=== PATIENT | female | born 1945 | race Caucasian/White ===

== ENCOUNTER 2018-07-03 13:02 | Inpatient (IN) | payer MEDICARE ==
[2018-07-03 13:49] LABS: Bilirubin Negative (Negative); Blood, Urine Negative (Negative); Clarity CLEAR (Clear); Glucose, Urine (Dipstick) 250 mg/dL (Negative); Leukocyte Negative (Negative); Nitrite Negative (Negative); Protein, Urine (Dipstick) Negative (Neg-Trace); Specific Gravity, Urine 1.008 (1.002-1.036); Urobilinogen 0.2 mg/dL (0.2-1.0); pH, Urine 5.5 (5.0-9.0)
--- NOTE | 2018-07-03 13:55 | RAD ---
CHEST 1 VIEW: Date: 07/03/18 HISTORY: Chest pain, palpitations, weakness. COMPARISON: Radiograph 2 days prior. FINDINGS: Lungs are clear. No pneumothorax or effusion. Cardiac silhouette and mediastinal contours within norm al limits. Surgical clips project over the left hemithorax. Cardiac device is similar. IMPRESSION: No acute intrathoracic abnormality. POS: [facility]
[2018-07-03] MEDS ORDERED: Digoxin 0.5 MG/2 ML AMP ONE ×2 (13:58→14:02)
[2018-07-03 13:59] LABS: #Basophils 0.1 thou/uL (0.0-0.2); #Eosinphils 0.5 thou/uL (0.0-0.7); #Lymphocytes 1.9 thou/uL (1.20-3.40); #Monocytes 0.5 thou/uL (0.11-0.59); %Basophils 0.8 % (0.0-1.0); %Eosinophils 6.2 % (0.0-10.0); %Lymphocytes 23.9 % (21.0-51.0); Hemoglobin 13.4 g/dL (12.0-16.0); Mean Corpuscular HGB CONC 35.7 g/dL (32.0-36.0); Mean Corpuscular Hemoglobin 35.1 pg (27.0-31.0); Mean Corpuscular Volume 98.4 fL (78.0-98.0); Mean Platelet Volume 7.2 fL (7.4-10.4); Platelet Count 207 thou/uL (130-400); RBC Distribution Width 15.2 % (11.5-14.5); White Blood Cell (WBC) Count 7.9 thou/uL (4.8-10.8)
[2018-07-03 14:06] LABS: INR-International Normal Ratio 1.3; PTT 31.8 SEC (22.9-36.1); Prothrombin Time 16.2 SEC (12.0-14.7)
[2018-07-03] MEDS ORDERED: Magnesium Sulfate 2 GM, Admixture Fee 1 EACH in Sodium Chloride 0.9% 100 ML IVPB SCH (14:15)
[2018-07-03 14:20] LABS: ALT (SGPT) 22 U/L (8-55); AST (SGOT) 24 U/L (5-34); Albumin 3.8 g/dL (3.4-4.8); Alkaline Phosphatase 83 U/L (40-150); Anion Gap 20 mmol/L (10-20); BUN (Urea Nitrogen) 18 mg/dL (9.8-20.1); Bilirubin, Total 0.4 mg/dL (0.2-1.2); CK (CPK) 77 U/L (29-168); Calc. Creatinine Clearance 0 mL/min (70-130); Calcium 9.2 mg/dL (7.8-10.44); Carbon Dioxide 21 mmol/L (23-31); Chloride 100 mmol/L (98-107); Estimated GFR-MDRD 35; Globulin 3.4 g/dL (2.4-3.5); Glucose 267 mg/dL (83-110); Lipase 62 U/L (8-78); Potassium 3.9 mmol/L (3.5-5.1); Protein, Total 7.2 g/dL (6.0-8.3); Sodium 137 mmol/L (136-145)
[2018-07-03 14:24] LABS: CKMB 1.8 ng/mL (0-6.6); Troponin I Less than 0.010 ng/mL (< 0.028)
[2018-07-03 16:16] VITALS: BMI 38.9
[2018-07-03] MEDS ORDERED: Ondansetron HCl/PF 4 MG/2 ML Vial IVP PRN (16:22)
[2018-07-03] MEDS ORDERED: Ondansetron ODT 4 MG TAB SL PRN (16:22)
--- NOTE | 2018-07-03 17:11 | PDOC.FPRHP ---
- History of Present Illness Chief Complaint: weakness, chest palpitations History of Present Illness: 73 yo F with PMH Afib with RVR who came into ED with complaint of palpitations for the past four days with complaints of fluttering. She was brought to the ED was found to be hypotensive. She was given a bolus of NS, Mg and Digoxin. Vital signs stabled out. Denies chest pain, SOB, CLARK, nausea, vomiting. She has been previously admitted for multiple episodes of Afib with RVR and endorses compliance with medications. 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 On hospital admission from February 2018 she was worked up with stress test that was negative. - Allergies/Adverse Reactions Allergies Allergy/AdvReac Type Severity Reaction Status Date / Time ciprofloxacin [From Cipro] Allergy Verified 06/24/17 00:19 levofloxacin Allergy Verified 06/24/17 00:19 - Home Medications Medication Instructions Recorded Confirmed Type Aspirin [Ecotrin Low Strength] 81 mg PO QPM 06/18/17 06/30/17 History Biotin 5,000 mcg PO QPM 06/18/17 06/30/17 History Cholecalciferol (Vitamin D3) 1,000 unit PO QPM 06/18/17 06/30/17 History [Vitamin D3] Escitalopram Oxalate 40 mg PO DAILY 06/18/17 06/30/17 History Furosemide 40 mg PO BID 06/18/17 06/30/17 History Gabapentin 600 mg PO BID 06/18/17 06/30/17 History Glimepiride [Amaryl] 4 mg PO DAILY 06/18/17 06/30/17 History Hydrochlorothiazide 25 mg PO DAILY 06/18/17 06/30/17 History metFORMIN HCl [Metformin HCl] 500 mg PO BID 06/18/17 06/30/17 History Potassium Chloride [K-Dur] 20 meq PO BID-WM #60 tab 06/20/17 06/30/17 Rx Diltiazem HCl [Cartia XT] 240 mg PO BID #60 cap.er.24h 06/26/17 06/30/17 Rx Metoprolol Succinate [Toprol XL] 50 mg PO DAILY #60 tab 06/26/17 06/30/17 Rx Warfarin Sodium [Coumadin] 2 mg PO SEEPHYS tab 06/26/17 06/30/17 Rx Warfarin Sodium [Coumadin] 4 mg PO MWF tab 06/26/17 06/30/17 Rx Cefdinir [Omnicef] 300 mg PO BID 06/30/17 06/30/17 History - History PMHx: HTN, DM2, Tachybrady sndrome s/p pacemaker, chronic Afib, MDD, benign essential tremor PSHx: BTL, C sections, mastectomy FHx: Social: Denies T/E/D - Review of Systems General: denies: fever/chills, weight/appetite/sleep changes Eyes: denies: eye pain, vision changes ENT: denies: nasal congestion, rhinorrhea Respiratory: denies: cough, congestion, shortness of breath Cardiovascular: reports: palpitation. denies: chest pain, edema Gastrointestinal: denies: nausea, vomiting, diarrhea, constipation, GI bleeding Genitourinary: denies: incontinence, dysuria Skin: denies: rashes, itching Musculoskeletal: denies: tenderness, stiffness Neurological: denies: numbness, syncope - Vital signs BP: [138/66] HR: [83] RR: [16] Tmax: [98.7] Pox: [99]% on [RA] Wt: 102kg - Physical Exam Constitutional: NAD HEENT: normocephalic and atraumatic, EOMI Neck: supple Chest: no-tender to palpation, no lesions -Heart: Irregular rhythm on auscultation Lungs: CTAB, no respiratory distress Abdomen: soft, non-tender, no masses/distention Musculoskeletal: normal structure, normal tone Neurological: CN II-XII intact Skin: no rash/lesions Heme/Lymphatic: no unusual bruising or bleeding Psychiatric: normal mood and affect, good judgment and insight FMR H&P: Results - Labs Result Diagrams: 07/03/18 13:25 07/03/18 13:25 Lab results: WBC 7.9 thou/uL (4.8-10.8) 07/03/18 13:25 Hgb 13.4 g/dL (12.0-16.0) 07/03/18 13:25 Hct 37.4 % (36.0-47.0) 07/03/18 13:25 MCV 98.4 fL (78.0-98.0) H 07/03/18 13:25 Plt Count 207 thou/uL (130-400) 07/03/18 13:25 Neutrophils % 63.0 % (42.0-75.0) 07/03/18 13:25 Sodium 137 mmol/L (136-145) 07/03/18 13:25 Potassium 3.9 mmol/L (3.5-5.1) 07/03/18 13:25 Chloride 100 mmol/L (98-107) 07/03/18 13:25 Carbon Dioxide 21 mmol/L (23-31) L 07/03/18 13:25 BUN 18 mg/dL (9.8-20.1) 07/03/18 13:25 Creatinine 1.46 mg/dL (0.6-1.1) H 07/03/18 13:25 Glucose 267 mg/dL (83-110) H 07/03/18 13:25 Lactic Acid 4.2 mmol/L (0.5-2.2) H* 07/03/18 13:25 Calcium 9.2 mg/dL (7.8-10.44) 07/03/18 13:25 Total Bilirubin 0.4 mg/dL (0.2-1.2) 07/03/18 13:25 AST 24 U/L (5-34) 07/03/18 13:25 ALT 22 U/L (8-55) 07/03/18 13:25 Alkaline Phosphatase 83 U/L (40-150) 07/03/18 13:25 Creatine Kinase 77 U/L (29-168) 07/03/18 13:25 CK-MB (CK-2) 1.8 ng/mL (0-6.6) 07/03/18 13:25 B-Natriuretic Peptide 153.8 pg/mL (0-100) H 07/03/18 13:25 Serum Total Protein 7.2 g/dL (6.0-8.3) 07/03/18 13:25 Albumin 3.8 g/dL (3.4-4.8) 07/03/18 13:25 Lipase 62 U/L (8-78) 07/03/18 13:25 Urine Ketones Negative mg/dL (Negative) 07/03/18 13:25 Urine Blood Negative (Negative) 07/03/18 13:25 Urine Nitrite Negative (Negative) 07/03/18 13:25 Ur Leukocyte Esterase Negative (Negative) 07/03/18 13:25 - EKG Interpretation EKG: EKG showed Afib with RVR FMR H&P: A/P - Problem List (1) Atrial fibrillation with RVR Current Visit: Yes Status: Acute Code(s): I48.91 - UNSPECIFIED ATRIAL FIBRILLATION (2) Diabetes Current Visit: Yes Status: Acute Code(s): E11.9 - TYPE 2 DIABETES MELLITUS WITHOUT COMPLICATIONS (3) Tachy-tyler syndrome Current Visit: Yes Status: Acute Code(s): I49.5 - SICK SINUS SYNDROME (4) HTN (hypertension) Current Visit: Yes Status: Acute Code(s): I10 - ESSENTIAL (PRIMARY) HYPERTENSION (5) HLD (hyperlipidemia) Current Visit: Yes Status: Acute Code(s): E78.5 - HYPERLIPIDEMIA, UNSPECIFIED (6) CKD (chronic kidney disease), stage III Current Visit: Yes Status: Acute Code(s): N18.3 - CHRONIC KIDNEY DISEASE, STAGE 3 (MODERATE) - Plan 73 yo F with chronic Afib with RVR here for uncontrolled Afib with RVR 1. Afib with RVR -Currently in Afib with RVR, rate controlled -Admit to tele for continued monitoring -Holding off on cardiac workup (stress test, echo) due to recent stress on 2017 and echo 1 year ago that showed EF 63%; in prior admissions cardiology has taken lead on managing her heart condition -Plan to continue Metoprolol, Diltiazem & xarelto once med rec complated (not on eliquis b/c per chart was unable to reach therapeutic levels) Plan: Consult cardiology in AM -kindly appreciate recs; currently awaiting med reconciliation 2. Elevated lactic acid 2/2 hypotension -LA 4.2 in ED, afebrile -Giving IV NS; recheck LA in morning -Blood cx ordered in ED, follow up -Denies muscle cramps, vitally stable 3. Suspected hyperthyroidism -TSH low in ED, pending fT4 -Possible etiology for Afib with RVR 4. HTN -Will resume home meds after meds reconciled 5. HLD -Will resume home meds after meds reconciled 6. CKDIII -Will resume home meds after meds reconciled 7. MDD -Will resume home meds after meds reconciled 8. DM2 -Will resume home meds after meds reconciled 9. TachyBrady syndrome s/p pacemaker -Continue telemetry monitoring Diet: HH, but NPO at midnight in case Cardiology recommends stress test ppx: currently not on ppx, awaiting med reconciliation Dispo: Await cards recs FMR H&P: Upper Level - Pertinent history 73F presenting with a 4 day history of palpitations that were not associated with SOB, diaphoresis, chest pain, or syncope. History of chronic atrial fibrillation that is normally rate controlled with metoprolol and diltiazem. She had a pacemaker placed one year ago due to tachybrady syndrome. She has also had OP work up with Cardiology recently that includes a negative stress test with ejection fraction of 63% in February. She has been taking her Xarelto daily. Initially hypotensive in ED. Bolused 500cc of NS and given 0.5mg of Dig at which point her vital signs normalized and her rate decreased to 60-80 bpm. - Pertinent findings Vitals: Temp: 98.7F RR: 16 HR: 83 bpm O2: 99% on RA BP: 138/66 Gen: A&Ox3; no acute distress CV: irregularly irregular rhythym Pulm: CTA-B GI: non distended; nonTTP Extemities: no BLE edema EKG: a-fib with RVR; ventricular rate of 108 bpm - Plan Date/Time: 07/03/18 1711 1. Afib with RVR: s/p pacemaker with recent OP workup that includes negative stress with appropriate EF. Will trend troponins and repeat EKG as needed. Consult Cardiology in the AM. Monitor on tele. Continue diltiazem and metoprolol. Continue anticoagulation with Xarelto. 2. Elevated lactic acid: 4.2 on presentation to ED. No leukocytosis and afebrile. Will trend and work up further if they do not downtrend 3. Suspected hyperthyroidism: no history of thyroid disease. TSH of .0064 on admission. Free T3/4 pending. Possible etiology for palpitations 4. DMII: continue metformin and initiate SSI with accuchecks qACHS 5. Tachybrady syndrome: s/p pacemaker. Monitor on telemetry 6. MDD: continue fluoxetine 7. HTN: continue home meds 8. HLD: continue home meds I, Brian Munoz, have evaluated this patient and agree with findings/plan as outlined by sport internship resident. Pertinent changes/additions are listed here. Attending Addendum - Attending Addendum Date/Time: 07/03/182005 I personally evaluated the patient and discussed the management with Dr. Thakkar I agree with the History, Examination, Assessment and Plan documented above with any addition or exceptions noted below. 73 yo diabetic female with several weeks feeling weak and more recently HANNA walking to daughter's home and climbing steps to trailer home. Patient denies any chest pain she was found to have pulse in 150s and brought to ER. Patient with longstanding history of refractory Atrial fibrillation with RVR s/p pacemaker for tyler tachy syndrome. Notable depressed TSH T4 has been ordered to evaluate further. Patient on xarelto for anticoagulation . For rate control BB ,diltiazem and amiodarone. Patient evaluated for ischemic Heart Disease with negative stress test in February this year. Need to reconcile current home medication patient states she is on Xarelto but medication is listing coumadin and questionably on amiodarone as well. Will place on observation in telemetry and cardiac consultation .
[2018-07-03] MEDS ORDERED: Acetaminophen 325 MG TAB PO PRN (17:12)
[2018-07-03] MEDS ORDERED: Dextrose 50% Abboject 50 ML SYRINGE SLOW IVP PRN (17:12)
[2018-07-03] MEDS ORDERED: Dextrose 5% in Water 1,000 ML IV PRN (17:12)
[2018-07-03] MEDS ORDERED: HumaLOG 300 UNITS/3 ML VIAL SC PRN (17:15)
[2018-07-03 17:20] LABS: Troponin I Less than 0.010 ng/mL (< 0.028)
[2018-07-03 18:44] LABS: Lactic Acid 1.7 mmol/L (0.5-2.2)
[2018-07-03 19:52] LABS: Troponin I Less than 0.010 ng/mL (< 0.028)
[2018-07-03] MEDS ORDERED: Digoxin 0.5 MG/2 ML AMP SLOW IVP SCH (20:00)
[2018-07-03] MEDS ORDERED: Gabapentin 300 MG CAP PO SCH (23:30)
[2018-07-03] MEDS ORDERED: Rivaroxaban 15 MG TAB PO SCH (23:30)
[2018-07-04 05:09] LABS: #Basophils 0.1 thou/uL (0.0-0.2); #Eosinphils 0.6 thou/uL (0.0-0.7); #Lymphocytes 2.4 thou/uL (1.20-3.40); #Monocytes 0.6 thou/uL (0.11-0.59); #Neutrophils 4.5 thou/uL (1.40-6.50); %Basophils 1.4 % (0.0-1.0); %Eosinophils 7.1 % (0.0-10.0); %Monocytes 7.1 % (0.0-10.0); %Neutrophils 55.4 % (42.0-75.0); Hemoglobin 12.9 g/dL (12.0-16.0); Mean Corpuscular HGB CONC 35.9 g/dL (32.0-36.0); Mean Corpuscular Hemoglobin 35.1 pg (27.0-31.0); Mean Corpuscular Volume 97.8 fL (78.0-98.0); Mean Platelet Volume 7.3 fL (7.4-10.4); Platelet Count 183 thou/uL (130-400); RBC Distribution Width 14.9 % (11.5-14.5); Red Blood Cell (RBC) Count 3.67 mill/uL (4.20-5.40); White Blood Cell (WBC) Count 8.2 thou/uL (4.8-10.8)
[2018-07-04 05:26] LABS: Anion Gap 16 mmol/L (10-20); BUN (Urea Nitrogen) 19 mg/dL (9.8-20.1); Calc. Creatinine Clearance 65 mL/min (70-130); Calcium 9.1 mg/dL (7.8-10.44); Carbon Dioxide 24 mmol/L (23-31); Chloride 102 mmol/L (98-107); Estimated GFR-MDRD 41; Glucose 122 mg/dL (83-110); Potassium 3.9 mmol/L (3.5-5.1); Sodium 138 mmol/L (136-145)
--- NOTE | 2018-07-04 05:28 | PDOC.FM ---
- Subjective Subjective: Nurse states she did well over night. Pt. states she is feeling stronger. Pt. denies palpitations, chest pain, dyspnea, sob. She states that this happens everytime she leaves the hospital. She gets better in the hospital. - Objective MAR Reviewed: Yes Vital Signs & Weight: Vital Signs (12 hours) Temp Pulse Resp BP BP Pulse Ox 07/04/18 03:30 97.7 F 74 20 131/62 93 L 07/03/18 23:44 88 133/63 07/03/18 23:35 98.4 F 80 16 133/63 96 07/03/18 20:59 93 07/03/18 20:45 98.9 F 83 20 120/59 L 96 Weight Weight 103.011 kg Result Diagrams: 07/04/18 04:04 07/04/18 04:04 <Dayron Turner - Last Filed: 07/04/18 07:08> - Objective Vital Signs & Weight: Vital Signs (12 hours) Temp Pulse Resp BP BP Pulse Ox 07/04/18 21:08 76 128/59 L 07/04/18 16:08 98.3 F 70 16 113/53 L 94 L 07/04/18 12:10 97.9 F 75 16 121/60 96 Weight Weight 103.011 kg I&O: 07/03/18 07/04/18 07/05/18 06:59 06:59 06:59 Intake Total 480 Output Total 750 Balance -270 Result Diagrams: 07/04/18 09:15 07/04/18 09:15 <Amanda Padilla - Last Filed: 07/04/18 21:32> Phys Exam - Physical Examination Constitutional: NAD HEENT: PERRLA, moist MMs Neck: no JVD, full ROM Respiratory: no wheezing, clear to auscultation bilateral Cardiovascular: no significant murmur irregularly irregular Gastrointestinal: soft, non-tender, no distention, positive bowel sounds Musculoskeletal: no edema, pulses present Neurological: normal sensation, moves all 4 limbs Psychiatric: normal affect, A&O x 3 Skin: normal turgor, cap refill <2 seconds <Dayron Turner - Last Filed: 07/04/18 07:08> Dx/Plan (1) Atrial fibrillation with RVR Code(s): I48.91 - UNSPECIFIED ATRIAL FIBRILLATION Status: Acute (2) CKD (chronic kidney disease), stage III Code(s): N18.3 - CHRONIC KIDNEY DISEASE, STAGE 3 (MODERATE) Status: Acute (3) Diabetes Code(s): E11.9 - TYPE 2 DIABETES MELLITUS WITHOUT COMPLICATIONS Status: Acute (4) HLD (hyperlipidemia) Code(s): E78.5 - HYPERLIPIDEMIA, UNSPECIFIED Status: Acute (5) HTN (hypertension) Code(s): I10 - ESSENTIAL (PRIMARY) HYPERTENSION Status: Acute (6) Tachy-tyler syndrome Code(s): I49.5 - SICK SINUS SYNDROME Status: Acute - Plan Plan: This is a 73 yo female with a PMH of Afib with RVR, HTN, DM2, CKD 3, HLD Afib with RVR -Currently rate controlled, Stress in 02/2018 and echo 1 year ago (EF 63%). Pt. is on xarelto for anticoagulation. We will control with diltiazem and consult cardiology today to determine a heading Elevated lactic acid likely 2/2 hypotension -LA 4.2 down to 1.7. Blood and Urine cultures drawn in ED, awaiting results. Possible hyperthyroidism -Pt. TSH has been trending down in the last year. Currently 0.0064, normal Free T4 (1.05) HTN -Continue home meds HLD -Continue home meds CKD III -Continue home meds MDD -Continue home meds DM2 -Continue home meds TachyBrading syndrom s/p pacemaker -Continue tele monitoring Code: Full Family: none at bedside Prophylaxis: Disposition: Home in 1-2 days depending on cardiology recommendations <Dayron Turner - Last Filed: 07/04/18 07:08> Attending Addendum - Attending Addendum Date/Time: 07/04/18 2131 I personally evaluated the patient and discussed the management with Dr. Turner I agree with the History, Examination, Assessment and Plan documented above with any addition or exceptions noted below. A fib with RVR: Cards consulted. Will adjust rate controlling medication. Continue anticoagulation. Possible d/c tomorrow. ABrayMD <Amanda Padilla - Last Filed: 07/04/18 21:32>
[2018-07-04] MEDS: Gabapentin 300 MG CAP PO SCH ×2 (08:37→21:08)
[2018-07-04] MEDS: Potassium Chloride 20 MEQ TAB PO SCH ×2 (08:37→16:12)
[2018-07-04] MEDS: Escitalopram Oxalate 20 mg Tablet PO SCH (08:38)
[2018-07-04 09:39] LABS: Hemoglobin 13.2 g/dL (12.0-16.0); Platelet Count 180 thou/uL (130-400)
--- NOTE | 2018-07-04 16:09 | CON ---
DATE OF CONSULTATION: 07/04/2018 PRIMARY INSULATION ENGINEMAN: Dr. Nicolas Gonzales. REASON FOR CONSULTATION: Atrial fibrillation with rapid ventricular response. HISTORY OF PRESENT ILLNESS: Mrs. Vickers is a very pleasant 73-year-old white female who comes to the hospital for not feeling well. She has been noticing increased palpitations in the past 4 days and j ust weakness. She was found to have a blood pressure of 90/60 in the ER, this is what being called h ypotensive and she was given a bolus of normal saline as well As digoxin to slow her down if she was in RVR and her vitals improved. Her heart rate decreased and her blood pressure came up. She has a history of chronic atrial fibrillation as well as sick sinus syndrome with a pacemaker placed about a year ago. She denies any chest pain, tightness, pressure, no shortness of breath, just tiredness an d weakness. PAST MEDICAL HISTORY: 1. Hypertension. 2. Diabetes. 3. Tachybrady syndrome, status post pacemaker. 4. Chronic atrial fibrillation. 5. Major depressive disorder. 6. Benign essential tremor. PAST SURGICAL HISTORY: 1. Bilateral tubal ligation. 2. . 3. Mastectomy. 4. Pacemaker placement a year ago. FAMILY HISTORY: Noncontributory. SOCIAL HISTORY: No alcohol, tobacco or drugs. REVIEW OF SYSTEMS: A 12-point review of systems was done and it is all negative except stated in his tory of present illness. PHYSICAL EXAMINATION: VITAL SIGNS: Blood pressure 138/66, heart rate 83, respiratory rate 16, satting 99% on room air, tem perature 98.7. GENERAL: Awake, alert, oriented x3, in no distress. HEENT: Normocephalic, atraumatic. NECK: Supple. LUNGS: Clear. CARDIOVASCULAR: S1, S2, no S3, S4, no murmurs. ABDOMEN: Soft, positive bowel sounds. EXTREMITIES: No edema. SKIN: Warm and dry. LABORATORY DATA: Laboratory work was reviewed. CBC is unremarkable. Coags were unremarkable. Chem istry with creatinine of 1.28 on admission, improved to 1.16 now. Lactic acid was high at 4.2, but i mproved, actually creatinine was 1.4 that has improved. Troponin was negative x3. BNP was 153. TSH was low, but free T4 was normal. IMAGING DATA: EKG is reviewed. ASSESSMENT AND PLAN: 1. Atrial fibrillation with rapid ventricular response: Most likely symptomatic atrial fibrillation with rapid ventricular rate. She is already better rate controlled and feels much better. We will plan on increasing her rate control. We will go up on her metoprolol XL from 50 to 100 a day. Blood pressure currently in the 140s/80s should be able to take increase in metoprolol. 2. Continue full anticoagulation with Xarelto. 3. Counseled her on the importance of compliance. 4. Depression: She tells me that for the last 4 months, it has been really hard on her as she had t o put her in a longterm due to Alzheimer's dementia and she has experienced a few episode s when she came to see him and he would not recognize her and this was really tough on her. I told h er that she needs to be well for her to keep taking care of him and she needs to be on all her medica tions, but she tells me she takes them all the time. Thank you for letting us to participate in the care of your patient. Dr. Gonzales, her primary card iologist will follow up in the morning.
[2018-07-04] MEDS ORDERED: Rivaroxaban 15 MG TAB PO SCH (21:00)
[2018-07-04] MEDS ORDERED: Primidone 50 MG TAB PO SCH (21:00)
[2018-07-04] MEDS ORDERED: Atorvastatin Calcium 20 MG TAB PO SCH (21:00)
[2018-07-04] MEDS ORDERED: Aspirin 81 mg Enteric Coated Tablet PO SCH (21:00)
[2018-07-05 04:40] LABS: #Basophils 0.1 thou/uL (0.0-0.2); #Eosinphils 0.6 thou/uL (0.0-0.7); #Lymphocytes 2.6 thou/uL (1.20-3.40); #Monocytes 0.6 thou/uL (0.11-0.59); #Neutrophils 4.2 thou/uL (1.40-6.50); %Basophils 0.8 % (0.0-1.0); %Eosinophils 7.7 % (0.0-10.0); %Lymphocytes 32.2 % (21.0-51.0); %Monocytes 7.8 % (0.0-10.0); %Neutrophils 51.5 % (42.0-75.0); Hemoglobin 12.9 g/dL (12.0-16.0); Mean Corpuscular HGB CONC 35.6 g/dL (32.0-36.0); Mean Corpuscular Volume 98.2 fL (78.0-98.0); Mean Platelet Volume 7.7 fL (7.4-10.4); Platelet Count 190 thou/uL (130-400); RBC Distribution Width 14.9 % (11.5-14.5); White Blood Cell (WBC) Count 8.2 thou/uL (4.8-10.8)
--- NOTE | 2018-07-05 05:23 | PDOC.FM ---
- Subjective Subjective: Pt. states she did well overnight. Pt. denies chest pain, SOB, dyspnea, or abdominal pain. Pt. states she is feeling better today. - Objective MAR Reviewed: Yes Vital Signs & Weight: Vital Signs (12 hours) Temp Pulse Resp BP BP Pulse Ox 07/05/18 04:08 97.7 F 73 18 119/59 L 94 L 07/04/18 21:08 76 128/59 L 07/04/18 20:01 98.1 F 76 18 128/59 L 96 Weight Weight 104.689 kg I&O: 07/03/18 07/04/18 07/05/18 06:59 06:59 06:59 Intake Total 480 Output Total 750 Balance -270 Result Diagrams: 07/05/18 03:44 07/05/18 03:44 Phys Exam - Physical Examination Constitutional: NAD HEENT: PERRLA, moist MMs Neck: no JVD, full ROM Respiratory: no wheezing, clear to auscultation bilateral Cardiovascular: no significant murmur Irregularly irregular Gastrointestinal: soft, no distention, positive bowel sounds Pt. feels a pressure with palpation of abdomen Musculoskeletal: no edema, pulses present Neurological: normal sensation, moves all 4 limbs Psychiatric: normal affect, A&O x 3 Skin: normal turgor, cap refill <2 seconds Dx/Plan (1) Atrial fibrillation with RVR Code(s): I48.91 - UNSPECIFIED ATRIAL FIBRILLATION Status: Acute (2) CKD (chronic kidney disease), stage III Code(s): N18.3 - CHRONIC KIDNEY DISEASE, STAGE 3 (MODERATE) Status: Acute (3) Diabetes Code(s): E11.9 - TYPE 2 DIABETES MELLITUS WITHOUT COMPLICATIONS Status: Acute (4) HLD (hyperlipidemia) Code(s): E78.5 - HYPERLIPIDEMIA, UNSPECIFIED Status: Acute (5) HTN (hypertension) Code(s): I10 - ESSENTIAL (PRIMARY) HYPERTENSION Status: Acute (6) Tachy-tyler syndrome Code(s): I49.5 - SICK SINUS SYNDROME Status: Acute - Plan Plan: This is a 73 yo femlae with a PMH of Afib with RVR, HTN, DM2, CKD3, HLD Afib with RVR -Currently rate controlled, stress in 02/2018 and echo 1 year ago (EF 63%). Pt. is on xarelto for anticoagulation. Cardiology increased pt. metoprolol for better rate control. Elevated lactic acid likely 2/2 hypotension -Resolved. Pending blood and urine cultures Possible subclinical hyperthyroidism -Pt. TSH has been trending down in the last year. Currently 0.0064 with normal free T4 (1.05). This should be assessed in the outpatient setting. HTN -Continue home meds HLD -Continue home meds CKD III -Monitor BUN/Creatinine MDD -Continue home meds DM2 -Continue home meds Tachybrady syndrome S/P pacemaker -Continue tele monitoring Code: FULL Family: none at beside Prophylaxis: Disposition: home later today
[2018-07-05 05:24] LABS: Anion Gap 16 mmol/L (10-20); BUN (Urea Nitrogen) 18 mg/dL (9.8-20.1); Calc. Creatinine Clearance 71 mL/min (70-130); Calcium 9.4 mg/dL (7.8-10.44); Carbon Dioxide 24 mmol/L (23-31); Chloride 104 mmol/L (98-107); Estimated GFR-MDRD 45; Glucose 126 mg/dL (83-110); Potassium 4.1 mmol/L (3.5-5.1); Sodium 140 mmol/L (136-145)
--- NOTE | 2018-07-05 06:50 | PDOC.CTH ---
Cardiology Progress Note - Subjective Pt doing well. Would like to go home. Rate well controlled. - Objective Vital Signs Temp Pulse Resp BP BP Pulse Ox 07/05/18 04:08 97.7 F 73 18 119/59 L 94 L 07/04/18 21:08 76 128/59 L 07/04/18 20:01 98.1 F 76 18 128/59 L 96 Weight 230 lb 12.8 oz 07/03/18 07/04/18 07/05/18 06:59 06:59 06:59 Intake Total 480 240 Output Total 750 750 Balance -270 -510 - Physical Examination General/Neuro: alert & oriented x3, NAD Neck: carotid US brisk, no JVD present Lungs: CTA, unlabored respirations Heart: other: (IRR) Abdomen: no HSM, NT/ND Extremities: + edema B - Labs Result Diagrams: 07/05/18 03:44 07/05/18 03:44 Troponin/CKMB CK-MB (CK-2) 1.8 ng/mL (0-6.6) 07/03/18 13:25 Troponin I Less than 0.010 ng/mL (< 0.028) 07/03/18 19:21 - Assessment/Plan 1. afib with RVR 2. HTN 3. DM 4. s/p pacer Change CCB to QAM dosing (not a bid drug) Continue with BB Add digoxin if needed or increase BB Off IV CCB Continue ACT Ok from my standpoint to mt home with outpatient fu
[2018-07-05 07:48] VITALS: TEMP 98.6
[2018-07-05] MEDS: Potassium Chloride 20 MEQ TAB PO SCH (09:06)
[2018-07-05] MEDS: Gabapentin 300 MG CAP PO SCH (09:07)
[2018-07-05] MEDS: Escitalopram Oxalate 20 mg Tablet PO SCH (09:07)
[2018-07-05 12:10] VITALS: BP 120/56
--- NOTE | 2018-07-06 03:01 | DIS ---
DATE OF ADMISSION: 07/03/2018 DATE OF DISCHARGE: 07/05/2018 RESIDENT: Dayron Turner DO ADMITTING ATTENDING: Dr. Paz. DISCHARGE ATTENDING: Dr. Padilla. CONSULTATIONS: Cardiology, Dr. Miller and patient's hairspring i inspector, Dr. Gonzales. PROCEDURES: Chest x-ray, no acute intrathoracic abnormalities. PRIMARY DIAGNOSIS: Atrial fibrillation with RVR. SECONDARY DIAGNOSES: Hypertension, type 2 diabetes, MDD, tyler-tachy syndrome, hyperlipidemia, CKD s tage 3. DISCHARGE MEDICATIONS: Diltiazem 360 mg p.o. daily, metoprolol 100 mg p.o. daily. DISCONTINUED MEDICATIONS: Metoprolol 50 mg daily. HISTORY OF PRESENT ILLNESS AND HOSPITAL COURSE: This is a 73-year-old female who presented with sheela f complaint of palpitations. PAST MEDICAL HISTORY: Hypertension, type 2 diabetes, CKD 3, DVT, MDD, tachybrady syndrome seen in th e ER with a 4-day history of chest fluttering. She was given a bolus of normal saline, magnesium and digoxin in the ER. Vital signs were stable. In the ER, the patient had a blood pressure of 90/60, heart rate of 108. At that time, she met SIRS criteria. Lactic acid was drawn, was 4.2 was down to 1.7 later that day. Probes were negative x3. TSH was drawn 0.0068, free T4 was 1.05 within normal l imits. While she was here, Cardiology was consulted. Dr. Gonzales, her hairspring i inspector advised change in her diltiazem to an a.m. dosing and increasing her beta silvana to those reflective above. DISPOSITION: Stable. DISCHARGE INSTRUCTIONS: 1. Location: Home. 2. Diet: Diabetic diet. 3. Activity: As tolerated. 4. Follow up with primary care physician in 1-2 weeks.
== END 2018-07-05 13:42 | disposition home or self-care (01) | DRG 310 ==
LOC: ERS 13:02 → 2NO 15:44
PROVIDERS: ADMIT Family Medicine; ATTEND Family Medicine
DX: I48.2 Chronic atrial fibrillation (principal); E11.22 Type 2 diabetes mellitus with diabetic chronic kidney disease; N18.3 Chronic kidney disease, stage 3 (moderate); I12.9 Hypertensive chronic kidney disease with stage 1 through stage 4 chronic kidney disease, or unspecified chronic kidney disease; E78.5 Hyperlipidemia, unspecified; F32.9 Major depressive disorder, single episode, unspecified; G25.0 Essential tremor; I49.5 Sick sinus syndrome; E05.90 Thyrotoxicosis, unspecified without thyrotoxic crisis or storm; I95.9 Hypotension, unspecified; R74.0 Nonspecific elevation of levels of transaminase and lactic acid dehydrogenase [LDH]; Z95.0 Presence of cardiac pacemaker; Z90.10 Acquired absence of unspecified breast and nipple
CPT/HCPCS: 36415; 36416; 71045; 80048; 80053; 81003; 82553; 83605; 83690; 83880; 84439; 84443; 84484; 85025; 85610; 85730; 87040; 87086; 93005; 96361; 96365; 96375; A4216; J1160; J3475; J7050

== ENCOUNTER 2019-01-03 13:11 | Emergency (ER) | payer MEDICARE ==
--- NOTE | 2019-01-03 14:23 | RAD ---
PORTABLE CHEST 1 VIEW: DATE: 01/03/2019. TIME: 1:36 p.m. HISTORY: Chest pain. FINDINGS: Comparison is made with the exam of 09/01/2018. The heart is enlarged. The aorta is tortuous. A left-sided pacemaking device remains in place. The lungs are expanded without focal areas of consolidation, pneumothoraces, faith pulmonary edema, or p leural effusions. IMPRESSION: No acute process. POS: C
[2019-01-03 14:29] LABS: Bilirubin Negative (Negative); Blood, Urine Large (Negative); Clarity CLOUDY (Clear); Glucose, Urine (Dipstick) Negative (Negative); Leukocyte Trace (Negative); Nitrite Negative (Negative); Protein, Urine (Dipstick) 30 mg/dL (Neg-Trace); Specific Gravity, Urine 1.006 (1.002-1.036)
[2019-01-03 14:32] LABS: Bacteria/HPF None Seen HPF (None Seen); Hyaline Casts/LPF 0-3 HYALINE CAST LPF (0-3 Hyaline); Pathc Cast-AUWi Flag 0.33 (0-2.49); RBC/HPF GREATER THAN 50-TNTC HPF (0-3); Squamous Epithelial None Seen HPF (0-3)
== END 2019-01-03 14:31 | disposition home or self-care (01) ==
LOC: ERS 13:11
DX: S43.402A Unspecified sprain of left shoulder joint, initial encounter (principal); N39.0 Urinary tract infection, site not specified; I48.91 Unspecified atrial fibrillation; E11.9 Type 2 diabetes mellitus without complications; I10 Essential (primary) hypertension; W18.30XA Fall on same level, unspecified, initial encounter
CPT/HCPCS: 71045; 81003; 81015; 93005

== ENCOUNTER 2019-05-05 12:33 | Emergency (ER) | payer MEDICARE ==
--- NOTE | 2019-05-05 13:44 | RAD ---
XR Elbow Rt 4 View STANDARD History: [Injury. Tripped and fell.] Comparison: None. Findings: No acute displaced fracture or malalignment. Lateral radiograph is limited due to nontreate d view. Mild enthesopathic change common flexor tendon. Impression: No acute displaced fracture or malalignment.
--- NOTE | 2019-05-05 13:45 | RAD ---
XR Knee Rt 4 View STANDARD History: [Injury. Fall.] Comparison: None. Findings: Moderate medial compartment joint space narrowing. Medial compartment cortical sclerosis os teophyte formation and narrowing is present. No acute displaced fracture or malalignment. Small patellofemoral and lateral compartment osteophytes. Mild vascular calcifications. Impression: Advanced medial compartment degenerative changes. No acute fracture or malalignment.
== END 2019-05-05 14:09 | disposition home or self-care (01) ==
LOC: ERS 12:33
DX: S50.01XA Contusion of right elbow, initial encounter (principal); S80.01XA Contusion of right knee, initial encounter; F41.9 Anxiety disorder, unspecified; F32.9 Major depressive disorder, single episode, unspecified; I48.91 Unspecified atrial fibrillation; Z79.01 Long term (current) use of anticoagulants; W19.XXXA Unspecified fall, initial encounter

== ENCOUNTER 2019-09-13 12:08 | Inpatient (IN) | payer MEDICARE, OTHER ==
[2019-09-13 12:46] LABS: Hemoglobin 4.8 g/dL (12.0-16.0); Mean Corpuscular HGB CONC 30.8 g/dL (32.0-36.0); Mean Corpuscular Hemoglobin 26.9 pg (27.0-31.0); Mean Corpuscular Volume 87.5 fL (78.0-98.0); Mean Platelet Volume 8.3 fL (7.4-10.4); Platelet Count 228 thou/uL (130-400); RBC Distribution Width 18.6 % (11.5-14.5); Red Blood Cell (RBC) Count 1.79 mill/uL (4.20-5.40); Reflex for Review?? YES; White Blood Cell (WBC) Count 12.8 thou/uL (4.8-10.8)
[2019-09-13 13:01] LABS: ALT (SGPT) 9 U/L (8-55); AST (SGOT) 10 U/L (5-34); Albumin 3.3 g/dL (3.4-4.8); Alkaline Phosphatase 102 U/L (40-110); Anion Gap 14 mmol/L (10-20); BUN (Urea Nitrogen) 26 mg/dL (9.8-20.1); Bilirubin, Total 0.2 mg/dL (0.2-1.2); Calc. Creatinine Clearance 0 mL/min (70-130); Calcium 8.5 mg/dL (7.8-10.44); Carbon Dioxide 24 mmol/L (23-31); Chloride 108 mmol/L (98-107); Estimated GFR-MDRD 32; Globulin 2.8 g/dL (2.4-3.5); Glucose 182 mg/dL (83-110); Potassium 4.2 mmol/L (3.5-5.1); Protein, Total 6.1 g/dL (6.0-8.3); Sodium 142 mmol/L (136-145)
[2019-09-13 13:13] LABS: Band 3 % (5-11); Eosinophils 2 % (0-10); Hypochromia MODERATE=16-30 cells (100X) (0-5/hpf); Lymphocytes 24 % (21-51); MDiff Complete? YES; Metamyelocyte 1 % (0-0); Monocytes 4 % (0-10); Neutrophil 66 % (42-75); Platelet Morphology Comment Appears Adequate; Polychromasia MODERATE = 3-4 cells (100X) (0-2/hpf); Tear Drops SLIGHT = 2-5 cells (100X) (0-1/hpf)
[2019-09-13 13:27] LABS: Bilirubin Negative (Negative); Blood, Urine Negative (Negative); Clarity Clear (Clear); Glucose, Urine (Dipstick) Normal (Negative); Leukocyte Negative Leu/uL (Negative); Nitrite Negative (Negative); Protein, Urine (Dipstick) Negative (Neg-Trace); Urobilinogen Normal mg/dL (Less than 2)
--- NOTE | 2019-09-13 15:19 | PDOC.FPRHP ---
- History of Present Illness Chief Complaint: low Hgb History of Present Illness: This is a 74yo F presenting today for an abnormal lab result of low hgb. The patient was recently seen by her PCP Dr. Smith at [facility]. She had blood work done that ended up showing a Hgb of 4.8. The patient has been having symptoms of lightheadedness and fatigue. She occasionally has dizziness. She also endorses dark stools. She states she has been having symptoms for over a month. She endorses diarrhea as well during this time. She states she doesn't have diarrhea every day but will have it often. She states this has been a gradual onset of symptoms that have continued to worsen. She has had decreased appetite over this time. She had a colonoscopy about 1 year ago that was normal - no polyps or hemorrhoids. Patient denies any abdominal pain or cramping. Denies NSAID use. ED Course: protonix, 1L NS and 1 uPRBCs - Allergies/Adverse Reactions Allergies Allergy/AdvReac Type Severity Reaction Status Date / Time ciprofloxacin [From Cipro] Allergy Verified 07/03/18 21:24 levofloxacin Allergy Verified 07/03/18 21:24 - Home Medications Medication Instructions Recorded Confirmed Type Aspirin [Ecotrin Low Strength] 81 mg PO HS 06/18/17 09/13/19 History Cholecalciferol (Vitamin D3) 2,000 unit PO DAILY 06/18/17 09/13/19 History [Vitamin D3] Furosemide 80 mg PO DAILY 06/18/17 09/13/19 History Gabapentin 600 mg PO TID 06/18/17 09/13/19 History Potassium Chloride [K-Dur] 20 meq PO BID-WM #60 tab 06/20/17 09/13/19 Rx Atorvastatin Calcium 40 mg PO HS 07/03/18 09/13/19 History Losartan [Cozaar] 25 mg PO HS 07/03/18 09/13/19 History Primidone [Mysoline] 100 mg PO DAILY 07/03/18 09/13/19 History Rivaroxaban [Xarelto] 15 mg PO HS 07/03/18 09/13/19 History Digoxin [Lanoxin] 0.125 mg PO DAILY 09/13/19 09/13/19 History Metoprolol Succinate [Toprol XL] 100 mg PO BID 09/13/19 09/13/19 History Primidone [Mysoline] 50 mg PO HS 09/13/19 09/13/19 History Sertraline HCl [Zoloft] 100 mg PO DAILY 09/13/19 09/13/19 History glipiZIDE [Glipizide] 5 mg PO DAILY 09/13/19 09/13/19 History sitaGLIPtin Phosphate [Januvia] 50 mg PO DAILY 09/13/19 09/13/19 History - History PMHx: a fib, DM II, HTN, breast cancer (L), "kidney failure", anxiety/depression PSHx: csection, pace maker for a fib FHx: none Social: denies smoking, alcohol or drug use - Review of Systems General: reports: weight/appetite/sleep changes, fatigue. denies: fever/chills , night sweats Eyes: denies: vision changes ENT: denies: nasal congestion, rhinorrhea Respiratory: denies: cough, congestion, shortness of breath, exercise intolerance Cardiovascular: denies: chest pain, palpitation, edema, paroxysmal nocturnal dyspnea, orthopnea Gastrointestinal: reports: diarrhea, GI bleeding. denies: nausea, vomiting, constipation, abdominal pain Genitourinary: denies: dysuria Skin: denies: rashes, lesions Musculoskeletal: denies: pain, tenderness, stiffness, swelling Neurological: reports: weakness. denies: numbness, syncope, seizure Psychological: reports: anxiety, depression - Vital signs BP: 135/60 (Lying), Pulse: 60, Resp: 17, Temp: 97.9 (Oral), Pain: 0, O2 sat: 97 on 2L Oxygen, Time: 09/13/2019 15:13. Weight 97kg - Physical Exam Constitutional: NAD, awake, alert and oriented, well developed -Constitutional: morbidly obese, pale appearing HEENT: normocephalic and atraumatic, PERRLA, EOMI, no scleral icterus, grossly normal vision, grossly normal hearing, good dention -HEENT: MM dry Neck: supple, FROM Chest: no-tender to palpation, no lesions Heart: RRR, normal S1/S2, no murmurs/rubs/gallops, pulses present Lungs: CTAB, no respiratory distress, good air movement, no rales/rhonchi, no wheezing, no retractions Abdomen: soft, non-tender, bowel sounds present, no masses/distention Musculoskeletal: normal tone, ROM grossly normal Neurological: no focal deficit Skin: no rash/lesions -Skin: poor turgor, cap refill > 2 sec Heme/Lymphatic: no unusual bruising or bleeding, no purpura, no petechia Psychiatric: normal mood and affect, good judgment and insight, intact recent and remote memory FMR H&P: Results - Labs Result Diagrams: 09/13/19 12:23 09/13/19 12:23 Lab results: WBC 12.8 thou/uL (4.8-10.8) H 09/13/19 12:23 Hgb 4.8 g/dL (12.0-16.0) L* 09/13/19 12:23 Hct 15.7 % (36.0-47.0) L 09/13/19 12:23 MCV 87.5 fL (78.0-98.0) 09/13/19 12:23 Plt Count 228 thou/uL (130-400) 09/13/19 12:23 Band Neuts % (Manual) 3 % (5-11) L 09/13/19 12:23 Sodium 142 mmol/L (136-145) 09/13/19 12:23 Potassium 4.2 mmol/L (3.5-5.1) 09/13/19 12:23 Chloride 108 mmol/L (98-107) H 09/13/19 12:23 Carbon Dioxide 24 mmol/L (23-31) 09/13/19 12:23 BUN 26 mg/dL (9.8-20.1) H 09/13/19 12:23 Creatinine 1.60 mg/dL (0.6-1.1) H 09/13/19 12:23 Glucose 182 mg/dL (83-110) H 09/13/19 12:23 Lactic Acid 2.5 mmol/L (0.5-2.2) H 09/13/19 12:23 Calcium 8.5 mg/dL (7.8-10.44) 09/13/19 12:23 Total Bilirubin 0.2 mg/dL (0.2-1.2) 09/13/19 12:23 AST 10 U/L (5-34) 09/13/19 12:23 ALT 9 U/L (8-55) 09/13/19 12:23 Alkaline Phosphatase 102 U/L (40-110) 09/13/19 12:23 Serum Total Protein 6.1 g/dL (6.0-8.3) 09/13/19 12:23 Albumin 3.3 g/dL (3.4-4.8) L 09/13/19 12:23 Urine Ketones Negative mg/dL (Negative) 09/13/19 13:01 Urine Blood Negative (Negative) 09/13/19 13:01 Urine Nitrite Negative (Negative) 09/13/19 13:01 Ur Leukocyte Esterase Negative Elizabeth/uL (Negative) 09/13/19 13:01 FMR H&P: A/P - Problem List (1) Atrial fibrillation Current Visit: Yes Status: Acute Code(s): I48.91 - UNSPECIFIED ATRIAL FIBRILLATION (2) Upper GI bleed Current Visit: Yes Status: Acute Code(s): K92.2 - GASTROINTESTINAL HEMORRHAGE, UNSPECIFIED (3) Anemia Current Visit: Yes Status: Acute Code(s): D64.9 - ANEMIA, UNSPECIFIED (4) CKD (chronic kidney disease), stage III Current Visit: No Status: Acute Code(s): N18.3 - CHRONIC KIDNEY DISEASE, STAGE 3 (MODERATE) (5) Diabetes Current Visit: No Status: Acute Code(s): E11.9 - TYPE 2 DIABETES MELLITUS WITHOUT COMPLICATIONS (6) HLD (hyperlipidemia) Current Visit: No Status: Acute Code(s): E78.5 - HYPERLIPIDEMIA, UNSPECIFIED (7) HTN (hypertension) Current Visit: No Status: Acute Code(s): I10 - ESSENTIAL (PRIMARY) HYPERTENSION - Plan Symptomatic Anemia 2/2 Upper GI bleed Hgb 4.8. Normal colonoscopy 1 yr ago. Melanotic stool. FOBT +. - patient currently getting 1uPRBCs, will get another and will recheck H/H 4 hours after transfusion. Will closely monitor. - source of bleed unknown, likely upper GI bleed. GI consulted, appreciate recommendations. - Continue PPI IV BID - Coags pending DM II - ACHS, mild SS - Will continue to monitor and continue home regimen Hx of a fib s/p pacemaker - aware, will continue to monitor. CKD stage 3 - aware, will continue to monitor. BUN/Cr at baseline. Code: DNAR VTE: SCDs GIppx: protonix IV Dispo: admit to medical, appreciate GI recs. LOS > 48hrs. Case discussed with Dr. Vergara Addendum - Attending - Attending Attestation Date/Time: 09/13/19 [id number] I personally evaluated the patient and discussed the management with Dr. Ruff I agree with the History, Examination, Assessment and Plan documented above with any addition or exceptions noted below - 74 yo female with h/o DM type 2, breast cancer, A-fib, HTN sent to hospital for low Hgb= 4.8. Patient report feeling more fatigued over the last month. Has noted dark stools over the last month and also decreased appetite. Denies any abdominal pain, N/V. PMH/PSH/Meds/ SH reviewed and agree with resident's documentation. Afebrile BP 105/50 P65 Exam repeated by me and agree with resident's findings. Labs: WBC= 12.8, H/H=4.8 /15.7, Wbw=663, Df=547, K=4.2, Sw=095. CO2=24, BUN/Cr=26/1.6, Zijj=436, AST/ALT= 10/9, Lactic acid=2.5. A/P: 1) Anemia- most likely secondary to GI bleed - transfusing 2 units pRBCs; will consult GI 2) Probable upper GI bleed - continue PPI; consult GI. 3) DM- continue home meds; monitor BG
[2019-09-13] MEDS ORDERED: Ondansetron ODT 4 MG TAB PO PRN (15:29)
[2019-09-13] MEDS ORDERED: Acetaminophen 325 MG TAB PO PRN (15:29)
[2019-09-13] MEDS ORDERED: Acetaminophen 650 MG Suppository PR PRN (15:29)
[2019-09-13] MEDS ORDERED: Dextrose 5% in Water 1,000 ML IV PRN (15:51)
[2019-09-13] MEDS ORDERED: Dextrose 50% Abboject 50 ML SYRINGE SLOW IVP PRN (15:51)
[2019-09-13] MEDS ORDERED: HumaLOG 300 UNITS/3 ML VIAL SC PRN (15:51)
[2019-09-13 18:20] LABS: INR-International Normal Ratio 1.4; PTT 29.3 SEC (22.9-36.1); Prothrombin Time 16.9 SEC (12.0-14.7)
[2019-09-13 18:31] LABS: Lactic Acid 3.3 mmol/L (0.5-2.2)
[2019-09-13] MEDS: Lactated Ringer's 1,000 ML IV SCH (18:41)
--- NOTE | 2019-09-13 20:01 | CON ---
DATE OF CONSULTATION: 09/13/2019 CHIEF COMPLAINT: Weakness, fatigue. HISTORY OF PRESENT ILLNESS: Ms. Vickers is a 74-year-old woman who has been on Xarelto, who reports black stools once or twice per day over the last couple of months. The dark stools are intermittent. She has had loose stools in general and did have some black runny stools over the last few days. She has had no abdominal pain or nausea or vomiting with this. No red blood in the stool. She was seen by her primary care physician, and blood work was done that showed a hemoglobin of 4.8, and she was sent onto the emergency room for further care. She had colonoscopy in September [address] Holman. Judging by the pathology report, she had 3 small tubular adenomas removed and normal duodenal biopsies. However, we will have to pull up the procedure reports from another computer system. PAST MEDICAL HISTORY: Atrial fibrillation; diabetes mellitus, type 2; hypertension; breast cancer; chronic kidney disease; anxiety; and depression. PAST SURGICAL HISTORY: , pacemaker, EGD, and colonoscopy. FAMILY HISTORY: Negative for GI malignancy. SOCIAL HISTORY: No alcohol, tobacco, or drugs. ALLERGIES: CIPROFLOXACIN AND LEVOFLOXACIN. MEDICATIONS: As an outpatient, include: 1. Aspirin. 2. Xarelto 15 mg at bedtime. 3. Vitamin D. 4. Furosemide. 5. Gabapentin. 6. Potassium. 7. Atorvastatin. 8. Losartan. 9. Primidone. 10. Digoxin. 11. Metoprolol. 12. Sertraline. 13. Glipizide. 14. Januvia. PHYSICAL EXAMINATION: VITAL SIGNS: Temperature 98.3, blood pressure 119/70, and pulse 60. GENERAL: She is in no acute distress. She is pale. She is awake and alert, oriented x3. HEENT: Eyes have no scleral icterus. Oropharynx is clear without lesions. NECK: No cervical or supraclavicular lymphadenopathy. LUNGS: Clear to auscultation bilaterally. HEART: Regular rate and rhythm without murmur. ABDOMEN: Soft, nontender, and nondistended. Bowel sounds are present. EXTREMITIES: 1+ to a trace lower extremity edema. RECTAL: Reveals brown stool in the rectal vault currently. Stool is not melenic now. LABORATORY DATA: White blood cell count 12.8, hemoglobin 4.8, and platelets 228. INR 1.4, creatinine 1.6, bilirubin 0.2, AST 10, ALT 9, alkaline phosphatase 102, and albumin 3.2. IMPRESSION: 1. Anemia of acute and chronic blood loss. She has been passing black runny stools over the last couple of months, but currently has brown stool in the rectal vault. 2. Gastrointestinal bleed. Favor of upper GI source. She did have a colonoscopy and EGD in September 2018. 3. Atrial fibrillation, on chronic anticoagulation. She has been on Xarelto. She does have some underlying kidney disease as well. RECOMMENDATIONS: 1. Xarelto has been held. 2. Transfusion. 3. I would plan upper endoscopy is the next step. Given that she is not acutely overtly bleeding currently, I would allow time for the Xarelto to metabolize and plan for upper endoscopy on Wednesday or Wednesday. In the meantime, we can work on transfusion and monitoring the trend of her hemoglobin. 4. Proton pump inhibitor IV. 5. Dr. Holman should be back tomorrow as he has seen her as an outpatient, performed endoscopy for her. Job ID: [id number]
[2019-09-13] MEDS: Pantoprazole 40 MG VIAL IVP SCH (20:21)
[2019-09-13] MEDS: Losartan 25 MG TAB PO SCH (20:21)
[2019-09-13] MEDS: Primidone 50 MG TAB PO SCH (20:24)
[2019-09-13] MEDS: Gabapentin 300 MG CAP PO SCH (20:24)
[2019-09-13] MEDS: Atorvastatin Calcium 40 MG TAB PO SCH (20:24)
[2019-09-13] MEDS: Pantoprazole 80 MG in Sodium Chloride 0.9% 100 ML IVP SCH (23:09)
[2019-09-14] MEDS: Lactated Ringer's 1,000 ML IV SCH ×4 (00:30→15:35)
[2019-09-14 02:14] LABS: Hemoglobin 6.6 g/dL (12.0-16.0); Platelet Count 152 thou/uL (130-400)
[2019-09-14] MEDS: Ondansetron PF 4 MG/2 ML Vial IVP PRN (03:36)
[2019-09-14] MEDS: glipiZIDE 5 MG TAB PO SCH (08:04)
[2019-09-14] MEDS: Potassium Chloride 20 MEQ TAB PO SCH ×2 (08:04→15:34)
[2019-09-14] MEDS: Primidone 50 MG TAB PO SCH ×2 (08:04→20:33)
[2019-09-14] MEDS: Alogliptin 6.25 MG TAB PO SCH (08:04)
[2019-09-14] MEDS: Furosemide 40 MG TAB PO SCH (08:05)
[2019-09-14] MEDS: Gabapentin 300 MG CAP PO SCH ×3 (08:05→20:33)
[2019-09-14] MEDS: Digoxin 0.125 MG TAB PO SCH (08:05)
[2019-09-14] MEDS: Pantoprazole 40 MG VIAL IVP SCH ×2 (08:05→20:33)
[2019-09-14 08:26] LABS: #Eosinphils 0.5 thou/uL (0.0-0.7); #Lymphocytes 2.1 thou/uL (1.20-3.40); #Monocytes 0.7 thou/uL (0.11-0.59); #Neutrophils 7.2 thou/uL (1.40-6.50); %Basophils 0.4 % (0.0-1.0); %Eosinophils 4.3 % (0.0-10.0); %Lymphocytes 19.8 % (21.0-51.0); %Monocytes 6.7 % (0.0-10.0); %Neutrophils 68.9 % (42.0-75.0); Hemoglobin 7.6 g/dL (12.0-16.0); Mean Corpuscular HGB CONC 32.3 g/dL (32.0-36.0); Mean Corpuscular Hemoglobin 27.3 pg (27.0-31.0); Mean Corpuscular Volume 84.7 fL (78.0-98.0); Mean Platelet Volume 8.5 fL (7.4-10.4); Platelet Count 160 thou/uL (130-400); RBC Distribution Width 18.4 % (11.5-14.5); Red Blood Cell (RBC) Count 2.79 mill/uL (4.20-5.40); White Blood Cell (WBC) Count 10.4 thou/uL (4.8-10.8)
--- NOTE | 2019-09-14 08:28 | PDOC.FM ---
- Subjective Subjective: Pt is doing well today. She endorsed continued fatigue. She has experienced this for multiple months as well as dark appearing stool. - Objective Vital Signs & Weight: Vital Signs (12 hours) Temp Pulse Pulse Resp BP BP BP 09/14/19 08:05 60 09/14/19 07:46 98.7 F 60 16 133/77 09/14/19 06:04 98.1 F 73 18 99/60 09/14/19 03:55 98.4 F 71 18 117/68 09/14/19 00:20 98.3 F 60 18 117/52 L 09/13/19 21:18 98.3 F 60 16 99/63 Pulse Ox 09/14/19 08:05 09/14/19 07:46 98 09/14/19 06:04 09/14/19 03:55 09/14/19 00:20 95 09/13/19 21:18 Weight Weight 95.708 kg I&O: 09/13/19 09/14/19 09/15/19 06:59 06:59 06:59 Intake Total 700 Balance 700 Result Diagrams: 09/14/19 02:07 09/13/19 12:23 Phys Exam - Physical Examination Constitutional: NAD Respiratory: no wheezing, no rales, no rhonchi, clear to auscultation bilateral Irregular rhythm, regular rate Gastrointestinal: soft, non-tender, positive bowel sounds Musculoskeletal: no edema, pulses present Dx/Plan (1) Anemia Code(s): D64.9 - ANEMIA, UNSPECIFIED Status: Acute (2) Atrial fibrillation Code(s): I48.91 - UNSPECIFIED ATRIAL FIBRILLATION Status: Acute (3) Upper GI bleed Code(s): K92.2 - GASTROINTESTINAL HEMORRHAGE, UNSPECIFIED Status: Acute (4) Atrial fibrillation with RVR Code(s): I48.91 - UNSPECIFIED ATRIAL FIBRILLATION Status: Acute (5) CKD (chronic kidney disease), stage III Code(s): N18.3 - CHRONIC KIDNEY DISEASE, STAGE 3 (MODERATE) Status: Acute (6) Diabetes Code(s): E11.9 - TYPE 2 DIABETES MELLITUS WITHOUT COMPLICATIONS Status: Acute (7) HLD (hyperlipidemia) Code(s): E78.5 - HYPERLIPIDEMIA, UNSPECIFIED Status: Acute (8) HTN (hypertension) Code(s): I10 - ESSENTIAL (PRIMARY) HYPERTENSION Status: Acute - Plan Plan: Symptomatic Anemia 2/2 Upper GI bleed Hgb 4.8. Normal colonoscopy 1 yr ago. Melanotic stool. FOBT +. - patient currently receiving 3rd unit of pRBC - source of bleed unknown, likely upper GI bleed. GI consulted, appreciate recommendations. - Continue PPI IV BID - Coags pending DM II - ACHS, mild SS - Will continue to monitor and continue home regimen Hx of a fib s/p pacemaker - aware, will continue to monitor. Pt did state she takes blood thinner in outpt setting. Will review chart to further assess. CKD stage 3 - aware, will continue to monitor. BUN/Cr at baseline. Code: DNAR VTE: SCDs GIppx: protonix IV Dispo: admit to medical, appreciate GI recs. LOS > 48hrs.
[2019-09-14 08:38] LABS: Anion Gap 10 mmol/L (10-20); BUN (Urea Nitrogen) 20 mg/dL (9.8-20.1); Calc. Creatinine Clearance 63 mL/min (70-130); Calcium 7.5 mg/dL (7.8-10.44); Carbon Dioxide 24 mmol/L (23-31); Chloride 111 mmol/L (98-107); Estimated GFR-MDRD 44; Glucose 96 mg/dL (83-110); Sodium 141 mmol/L (136-145)
[2019-09-14] MEDS: Pantoprazole 80 MG in Sodium Chloride 0.9% 100 ML IVP SCH ×2 (10:08→20:32)
--- NOTE | 2019-09-14 12:10 | PRG ---
DATE OF SERVICE: 09/14/2019 Ms. Vickers is a pleasant 74-year-old lady, who was admitted with black tarry stools and had significant anemia. She has already been seen in consultation by the GI service, who suspect an upper GI source. She has also been on Xarelto for chronic atrial fibrillation. They plan for scopes tomorrow. Job ID: [id number]
[2019-09-14 14:13] LABS: Iron 44 ug/dL (50-170); Iron Binding Capacity, Total 286 mcg/dL (265-497)
[2019-09-14 15:12] LABS: Ferritin 16.81 ng/mL (10-291)
[2019-09-14] MEDS: Losartan 25 MG TAB PO SCH (20:33)
[2019-09-14] MEDS: Atorvastatin Calcium 40 MG TAB PO SCH (20:33)
--- NOTE | 2019-09-14 22:45 | PRG ---
DATE OF SERVICE: 09/14/2019 SUBJECTIVE: Ms. Vickers has had no abdominal pain today. She has had no stool output today. OBJECTIVE: VITAL SIGNS: Temperature 98.1, pulse 60, and blood pressure 125/53. GENERAL: She is in no acute distress. Alert and oriented x3. LUNGS: Clear to auscultation bilaterally. HEART: Regular rate and rhythm without murmur. ABDOMEN: Soft, nontender, nondistended. Bowel sounds are present. EXTREMITIES: No lower extremity edema. LABORATORY DATA: Her hemoglobin has improved from 4.8 to 7.6 after 3 units of transfusion. IMPRESSION: 1. Upper gastrointestinal bleed, presenting with dark stools and iron-deficiency anemia, on Xarelto. Her last dose of Xarelto was the night before last. 2. Anemia of acute and chronic blood loss with iron deficiency. 3. Atrial fibrillation, on chronic anticoagulation. RECOMMENDATIONS: 1. Proton pump inhibitor. 2. EGD tomorrow. Job ID: [id number]
[2019-09-15] MEDS: Lactated Ringer's 1,000 ML IV SCH ×4 (00:34→17:16)
--- NOTE | 2019-09-15 06:38 | PDOC.FM ---
- Subjective Subjective: Pt is doing well today. She has no complaints other than on BM since Wednesday. Fatigue is better. - Objective Vital Signs & Weight: Vital Signs (12 hours) Temp Pulse Resp BP Pulse Ox 09/15/19 04:00 97.8 F 61 16 120/68 97 09/15/19 00:25 97.6 F 64 16 101/45 L 97 09/14/19 20:00 98.1 F 60 15 125/53 L 94 L Weight Admit Weight 95.708 kg Weight 95.708 kg I&O: 09/13/19 09/14/19 09/15/19 06:59 06:59 06:59 Intake Total 700 Balance 700 Result Diagrams: 09/15/19 07:39 09/15/19 07:02 Phys Exam - Physical Examination Constitutional: NAD Respiratory: no wheezing, no rales, clear to auscultation bilateral Irregluar rate, regular rhythm Gastrointestinal: soft, non-tender, no distention, positive bowel sounds Musculoskeletal: no edema, pulses present Dx/Plan (1) Anemia Code(s): D64.9 - ANEMIA, UNSPECIFIED Status: Acute (2) Atrial fibrillation Code(s): I48.91 - UNSPECIFIED ATRIAL FIBRILLATION Status: Acute (3) Upper GI bleed Code(s): K92.2 - GASTROINTESTINAL HEMORRHAGE, UNSPECIFIED Status: Acute (4) Atrial fibrillation with RVR Code(s): I48.91 - UNSPECIFIED ATRIAL FIBRILLATION Status: Acute (5) CKD (chronic kidney disease), stage III Code(s): N18.3 - CHRONIC KIDNEY DISEASE, STAGE 3 (MODERATE) Status: Acute (6) Diabetes Code(s): E11.9 - TYPE 2 DIABETES MELLITUS WITHOUT COMPLICATIONS Status: Acute (7) HLD (hyperlipidemia) Code(s): E78.5 - HYPERLIPIDEMIA, UNSPECIFIED Status: Acute (8) HTN (hypertension) Code(s): I10 - ESSENTIAL (PRIMARY) HYPERTENSION Status: Acute - Plan Plan: Symptomatic Anemia 2/2 Upper GI bleed Hgb 4.8 on admission. Normal colonoscopy 1 yr ago. Melanotic stool. FOBT +. - patient currently receiving 3rd unit of pRBC - source of bleed unknown, likely upper GI bleed. GI consulted, and will perform EGD today. - Continue PPI IV BID # Mixed Anemia Blood loss anemia vs Low Folate - iron supplementation on discharge - folate, b12 supplementation on discharge DM II - ACHS, mild SS - Will continue to monitor and continue home regimen Hx of a fib s/p pacemaker - aware, will continue to monitor. - Xarelto held for EGD CKD stage 3 - aware, will continue to monitor. BUN/Cr at baseline. HLD - continue home medications Fluid Overload - continue lasix Constipation - reassess after EGD Code: DNAR VTE: SCDs GIppx: protonix IV Dispo: admit to medical, appreciate GI recs. LOS > 48hrs.
[2019-09-15 07:35] LABS: Anion Gap 11 mmol/L (10-20); BUN (Urea Nitrogen) 17 mg/dL (9.8-20.1); Calc. Creatinine Clearance 62 mL/min (70-130); Calcium 7.7 mg/dL (7.8-10.44); Carbon Dioxide 23 mmol/L (23-31); Chloride 112 mmol/L (98-107); Estimated GFR-MDRD 43; Glucose 101 mg/dL (83-110); Potassium 3.9 mmol/L (3.5-5.1); Sodium 142 mmol/L (136-145)
[2019-09-15 07:54] LABS: #Basophils 0.1 thou/uL (0.0-0.2); #Eosinphils 0.5 thou/uL (0.0-0.7); #Lymphocytes 1.9 thou/uL (1.20-3.40); #Monocytes 0.7 thou/uL (0.11-0.59); #Neutrophils 7.2 thou/uL (1.40-6.50); %Basophils 0.6 % (0.0-1.0); %Eosinophils 4.7 % (0.0-10.0); %Lymphocytes 18.2 % (21.0-51.0); %Monocytes 6.7 % (0.0-10.0); %Neutrophils 69.8 % (42.0-75.0); Hemoglobin 8.1 g/dL (12.0-16.0); Mean Corpuscular HGB CONC 31.8 g/dL (32.0-36.0); Mean Corpuscular Hemoglobin 27.6 pg (27.0-31.0); Mean Corpuscular Volume 86.6 fL (78.0-98.0); Mean Platelet Volume 8.5 fL (7.4-10.4); Platelet Count 158 thou/uL (130-400); RBC Distribution Width 18.8 % (11.5-14.5); Red Blood Cell (RBC) Count 2.94 mill/uL (4.20-5.40); White Blood Cell (WBC) Count 10.3 thou/uL (4.8-10.8)
[2019-09-15] MEDS: Potassium Chloride 20 MEQ TAB PO SCH ×2 (08:01→17:13)
[2019-09-15] MEDS: Furosemide 40 MG TAB PO SCH (08:01)
[2019-09-15] MEDS: Gabapentin 300 MG CAP PO SCH ×3 (08:01→20:28)
[2019-09-15] MEDS: Digoxin 0.125 MG TAB PO SCH (08:01)
[2019-09-15] MEDS: Alogliptin 6.25 MG TAB PO SCH (08:02)
[2019-09-15] MEDS: Pantoprazole 40 MG VIAL IVP SCH ×2 (08:02→20:29)
[2019-09-15] MEDS: glipiZIDE 5 MG TAB PO SCH (08:02)
[2019-09-15] MEDS: Primidone 50 MG TAB PO SCH ×2 (08:04→20:28)
[2019-09-15] MEDS ORDERED: Iopamidol 370 76% 100 ML VIAL ONE (12:16)
[2019-09-15] MEDS ORDERED: Iopamidol 370 76% 50 ML VIAL FS ONE (12:16)
--- NOTE | 2019-09-15 12:22 | PRG ---
DATE OF SERVICE: 09/15/2019 She will be undergoing EGD today to determine the etiology of her anemia and melena. Job ID: [id number]
[2019-09-15] MEDS ORDERED: PROPOFOL 200 MG/20 ML VIAL ONE (13:12)
[2019-09-15] MEDS ORDERED: PHENYLEPHRINE-NS 100 MCG/ML 10 ML SYRINGE ONE (13:12)
[2019-09-15] MEDS ORDERED: Fentanyl 100 MCG/2 ML VIAL ONE (13:12)
[2019-09-15] MEDS ORDERED: Promethazine HCl 25 MG/ML VIAL SLOW IVP PRN (14:01)
[2019-09-15] MEDS ORDERED: Promethazine HCl 25 MG/ML VIAL IM PRN (14:01)
[2019-09-15] MEDS ORDERED: Ondansetron HCl/PF 4 MG/2 ML Vial IVP PRN (14:01)
[2019-09-15 15:10] LABS: Folate,Hemolysate 510.2 ng/mL (Not Estab.); Hematocrit 24.1 % (34.0-46.6); RBC Folate Test Component 2117 ng/mL (>498)
--- NOTE | 2019-09-15 16:51 | CT ---
CT abdomen and pelvis with IV and oral contrast HISTORY: Abdomen pain. Bleeding from ampulla of water. COMPARISON: 09/06/2018 and 06/24/2017. FINDINGS: Small amount of bilateral pleural fluid and bibasilar atelectasis are now evident. Small cy st of the liver dome is stable. There is calcification throughout the arterial structures. Urinary bladder has a normal appearance. No evidence of bowel obstruction. The second portion the duodenum has a normal appearance. No abnorma lities are evident at the level of the ampulla of Vater. Central portions of the common duct are not dilated. Prominent degenerative changes lower lumbar spine. Chronic appearing calcified posterior disc protrus ion at the L4-5 level is similar in appearance to the prior exams. IMPRESSION: No abnormalities at the ampulla of Vater are visible on CT to explain bleeding. New small bilateral pleural effusions and mild bibasilar atelectasis. Chronic-type findings are stable. Atherosclerosis.
[2019-09-15] MEDS: Atorvastatin Calcium 40 MG TAB PO SCH (20:28)
[2019-09-15] MEDS: Losartan 25 MG TAB PO SCH (20:28)
--- NOTE | 2019-09-15 20:30 | OP ---
DATE OF PROCEDURE: 09/15/2019 PROCEDURE PERFORMED: Esophagogastroduodenoscopy with biopsy. INDICATION FOR PROCEDURE: Anemia and melena. DESCRIPTION OF PROCEDURE: After the risks and benefits of the procedure were explained to the patient including risks of bleeding, infection, perforation, reactions to anesthesia, aspiration and/or pain, informed consent was obtained. The patient was then taken to the endoscopy suite and after placing the patient in the left lateral decubitus position, she underwent deep sedation via propofol and anesthesia support. Once adequate sedation was achieved, the standard gastroscope was introduced into the mouth with intubation of the esophagus, stomach, and the proximal small intestines with the findings listed below. Within the second portion of the duodenum, there was noted to be an area of oozing of blood, concerning for bleeding from the ampullary orifice. The regular EGD scope was then changed out for a duodenoscope with adequate visualization achieved with a duodenoscope. The patient tolerated the procedure well, and upon conclusion of the procedure, the patient was transferred to PACU in satisfactory condition. FINDINGS: Esophagus: Normal-appearing mucosa was seen in the proximal, mid, and distal esophagus as well as at the GE junction. There was no evidence of erosions, ulcerations, mass, lesions, or active/recent bleeding. Stomach: Normal-appearing mucosa was seen in the gastric cardia, fundus, body, greater curvature, and incisura. However, within the antrum, there were scattered areas of focal erosions (approximately 3 to 4 of them), but no evidence of overt ulceration, but could have been due to previous ulcerations now in a state of healing, also seen at the pyloric channel with increased mucosal erythema as well as a cratered appearance along the anterior portion of the pyloric channel itself without overt ulceration. Multiple biopsies were taken from this region for further evaluation and could have potentially contributed to her recent melenic stools. Otherwise, there was no evidence of mass, lesions, or active/recent bleeding. Duodenum: Normal-appearing mucosa was seen within the duodenal bulb. However, within the second portion of the duodenum, there was one area that was noted to have mild pooling of blood. Upon clearing this region with the gastroscope, it continued to ooze blood in an almost throbbing type fashion, but a very slowly throbbing fashion (5 to 10 seconds between oozing of blood). There was some question about whether or not this was bleeding coming from the ampulla itself, so the gastroscope was exchanged for a duodenoscope, which was then advanced to the second portion of the duodenum. Adequate visualization was then achieved and yes indeed, blood was noted emanating from the ampulla of Vater itself. No further intervention was taken for this finding. Otherwise, there was no evidence of ulcerations, mass, or lesions within the duodenum itself. IMPRESSION: 1. Scattered erosions in the antrum as well as cratered erythema in the pyloric channel itself concerning for recent gastric ulcers now in a state of healing, status post biopsies. 2. Mild oozing of blood from the ampulla of Vater itself with uncertain etiology, but could be indicative of hemobilia versus hemosuccus pancreaticus. RECOMMENDATIONS: 1. We would continue to trend her H and H and transfuse as necessary to maintain an H and H of 7/21. 2. Continue to monitor clinically for signs of active GI bleeding. 3. We would obtain a CT scan of the abdomen for evaluation of the liver and pancreas for possible source of bleeding in this region. 4. We would continue the patient on IV PPI b.i.d., given evidence of probable gastric ulcers. 5. We would avoid any NSAIDs during this hospitalization. We will continue to follow. Please call with any questions. Job ID: [id number]
[2019-09-16] MEDS: Lactated Ringer's 1,000 ML IV SCH ×2 (01:00→11:04)
[2019-09-16 06:00] LABS: #Eosinphils 0.4 thou/uL (0.0-0.7); #Lymphocytes 1.3 thou/uL (1.20-3.40); #Monocytes 0.6 thou/uL (0.11-0.59); #Neutrophils 7.9 thou/uL (1.40-6.50); %Basophils 0.1 % (0.0-1.0); %Eosinophils 3.8 % (0.0-10.0); %Lymphocytes 12.4 % (21.0-51.0); %Monocytes 6.1 % (0.0-10.0); %Neutrophils 77.6 % (42.0-75.0); Hemoglobin 6.9 g/dL (12.0-16.0); Mean Corpuscular HGB CONC 32.7 g/dL (32.0-36.0); Mean Corpuscular Hemoglobin 27.8 pg (27.0-31.0); Mean Corpuscular Volume 85.2 fL (78.0-98.0); Mean Platelet Volume 8.7 fL (7.4-10.4); Platelet Count 144 thou/uL (130-400); RBC Distribution Width 19.1 % (11.5-14.5); Red Blood Cell (RBC) Count 2.47 mill/uL (4.20-5.40); White Blood Cell (WBC) Count 10.2 thou/uL (4.8-10.8)
--- NOTE | 2019-09-16 06:22 | PDOC.FM ---
- Subjective Subjective: Pt is fatigued today. She denies blood per rectum but has had a BM. Denies blood per mouth. She does not have any pains. - Objective Vital Signs & Weight: Vital Signs (12 hours) Temp Pulse Resp BP Pulse Ox 09/15/19 20:00 95 09/15/19 18:58 97.9 F 69 20 142/75 H 100 Weight Admit Weight 95.708 kg Weight 95.708 kg I&O: 09/14/19 09/15/19 09/16/19 06:59 06:59 06:59 Intake Total 700 2220 Balance 700 2220 Result Diagrams: 09/16/19 05:28 09/16/19 05:28 Phys Exam - Physical Examination Constitutional: NAD HEENT: PERRLA, moist MMs white conjunctiva Neck: no nodes, no JVD Respiratory: no wheezing, no rales, no rhonchi, clear to auscultation bilateral irregular rhythm, reg rate Gastrointestinal: soft, non-tender, no distention Musculoskeletal: no edema, pulses present Neurological: non-focal, normal sensation Dx/Plan (1) Anemia Code(s): D64.9 - ANEMIA, UNSPECIFIED Status: Acute (2) Atrial fibrillation Code(s): I48.91 - UNSPECIFIED ATRIAL FIBRILLATION Status: Acute (3) Upper GI bleed Code(s): K92.2 - GASTROINTESTINAL HEMORRHAGE, UNSPECIFIED Status: Acute (4) Atrial fibrillation with RVR Code(s): I48.91 - UNSPECIFIED ATRIAL FIBRILLATION Status: Acute (5) CKD (chronic kidney disease), stage III Code(s): N18.3 - CHRONIC KIDNEY DISEASE, STAGE 3 (MODERATE) Status: Acute (6) Diabetes Code(s): E11.9 - TYPE 2 DIABETES MELLITUS WITHOUT COMPLICATIONS Status: Acute (7) HLD (hyperlipidemia) Code(s): E78.5 - HYPERLIPIDEMIA, UNSPECIFIED Status: Acute (8) HTN (hypertension) Code(s): I10 - ESSENTIAL (PRIMARY) HYPERTENSION Status: Acute - Plan Plan: Symptomatic Anemia 2/2 Upper GI bleed Hgb 4.8 on admission. Normal colonoscopy 1 yr ago. Melanotic stool. FOBT +. - patient currently receiving 3rd unit of pRBC - source of bleed unknown, likely upper GI bleed. GI consulted; performed EGD on 09/15 revealing healing gastric ulcers, bleeding from ampulla of vater possibly hemobillia vs hemosuccus pancreatitis. Will contact GI today. - pt hgb 6.9 from 8.1 yesterday. Consider transfusing 1pRBC, FFP. - Continue PPI IV BID # Mixed Anemia Blood loss anemia vs Low Folate - iron supplementation on discharge - folate, b12 supplementation on discharge DM II - ACHS, mild SS - Will continue to monitor and continue home regimen Hx of a fib s/p pacemaker - aware, will continue to monitor. - Xarelto held for EGD, bleeding CKD stage 3 - aware, will continue to monitor. BUN/Cr at baseline. HLD - continue home medications Fluid Overload - continue lasix Constipation - reassess after EGD Code: DNAR VTE: SCDs GIppx: protonix IV Dispo: admit to medical, appreciate GI recs. LOS > 48hrs. Addendum - Attending - Attending Attestation Date/Time: 09/16/19 9643 I personally evaluated the patient and discussed the management with Dr. Jorge. I agree with the History, Examination, Assessment and Plan documented above with any addition or exceptions noted below. Patient complaining of headache this morning. H/H has downtrended and will need repeat transfusion. CT scan did not show source of ampullary bleeding. GI on board and will need their expertise to further characterize the source of her bleeding. She is otherwise stable.
[2019-09-16 06:26] LABS: Anion Gap 12 mmol/L (10-20); BUN (Urea Nitrogen) 14 mg/dL (9.8-20.1); Calc. Creatinine Clearance 71 mL/min (70-130); Carbon Dioxide 25 mmol/L (23-31); Chloride 107 mmol/L (98-107); Estimated GFR-MDRD 50; Glucose 111 mg/dL (83-110); Sodium 140 mmol/L (136-145)
[2019-09-16] MEDS: Alogliptin 6.25 MG TAB PO SCH (08:13)
[2019-09-16] MEDS: Folic Acid 1 MG TAB PO SCH (08:13)
[2019-09-16] MEDS: glipiZIDE 5 MG TAB PO SCH (08:13)
[2019-09-16] MEDS: Potassium Chloride 20 MEQ TAB PO SCH ×2 (08:13→16:10)
[2019-09-16] MEDS: Digoxin 0.125 MG TAB PO SCH (08:13)
[2019-09-16] MEDS: Furosemide 40 MG TAB PO SCH (08:14)
[2019-09-16] MEDS: Primidone 50 MG TAB PO SCH ×2 (08:14→20:38)
[2019-09-16] MEDS: Gabapentin 300 MG CAP PO SCH ×3 (08:14→20:38)
[2019-09-16] MEDS: Pantoprazole 40 MG VIAL IVP SCH ×2 (08:15→20:39)
[2019-09-16 10:30] LABS: INR-International Normal Ratio 1.3; PTT 32.3 SEC (22.9-36.1); Prothrombin Time 15.9 SEC (12.0-14.7)
--- NOTE | 2019-09-16 13:57 | EKG ---
Test Reason : Blood Pressure : / mmHG Vent. Rate : 061 BPM Atrial Rate : 061 BPM P-R Int : 000 ms QRS Dur : 086 ms QT Int : 372 ms P-R-T Axes : 000 031 -46 degrees QTc Int : 374 ms Demand pacemaker; interpretation is based on intrinsic rhythm Wide complex Abnormal ECG Confirmed by EBONY NOWAK, ROMAINE Etienne ([id number]), multimedia editor JACLYN ATKINSON ([id number]) on 09/16/2019 1:56:44 PM Referred By: Confirmed By:ROMAINE BECK MD
[2019-09-16 18:10] LABS: Hemoglobin 9.1 g/dL (12.0-16.0); Platelet Count 166 thou/uL (130-400)
[2019-09-16] MEDS: Losartan 25 MG TAB PO SCH (20:37)
[2019-09-16] MEDS: Atorvastatin Calcium 40 MG TAB PO SCH (20:38)
--- NOTE | 2019-09-17 00:16 | PRG ---
DATE OF SERVICE: 09/16/2019 REASON FOR CONSULTATION: Anemia, melena/GI bleeding. SUBJECTIVE: Today, the patient states that she was doing well, but did have a darker colored/black stool that was semi-solid in consistency earlier today. She was noted to have a decreased H and H when compared to yesterday, and has subsequently received approximately 2 units of packed red blood cells. Otherwise, she denies any problems. Currently, she denies any nausea, vomiting, fevers, chills, hematemesis, or hematochezia. Of note, the patient did undergo upper endoscopy yesterday with inflammation of the antrum and pyloric valve. However, a small amount of blood was also seen emanating from the ampulla concerning for GI bleed. OBJECTIVE: VITAL SIGNS: Temperature 98.7, pulse 65, blood pressure 145/71, respiratory rate 16, saturating 97% on room air. GENERAL: The patient is lying in bed, in no acute distress. Alert and oriented x4. CARDIOVASCULAR: Regular rate and rhythm. RESPIRATORY: Clear to auscultation bilaterally. ABDOMEN: Normoactive bowel sounds. Soft, nontender, nondistended. EXTREMITIES: No cyanosis, clubbing, or edema. LABORATORY DATA: CBC with a white blood cell count of 10.2, hemoglobin 6.9, hematocrit 21, platelets 144. Chemistry with a sodium of 140, potassium 4, chloride 107, CO2 25, BUN 14, creatinine 1.07, glucose 111. IMAGING DATA: CT of the abdomen and pelvis was obtained on September 15, 2019, which did not show any abnormalities at the level of the ampulla of Vater. It also did not comment on any parenchymal changes within the liver or pancreas with the impression being no abnormalities at the ampulla of Vater visible to explain the bleeding. ASSESSMENT AND PLAN: 1. Upper gastrointestinal bleeding. At this time, there was increased inflammation in the antrum and pyloric valve, which could have been indicative of healing ulcerations. However, with her continued drop in her H and H, the bleeding noted from the ampulla of Vater is a more likely suspect; however, CT scan did not reveal any abnormalities within the pancreas or the liver, which might indicate a possible bleeding pathology. 2. Anemia of acute and chronic blood loss with iron deficiency. 3. Atrial fibrillation, on anticoagulation, now held secondary to gastrointestinal bleed. RECOMMENDATIONS: 1. We would continue pantoprazole IV b.i.d. 2. We would continue to trend her H and H and transfuse as necessary to maintain an H and H of 7/. 3. Continue to monitor clinically for signs of active GI bleeding. 4. If the patient does not respond to the infusion of blood appropriately and has continued evidence of melena, we would consider transferring the patient to [facility] for CT angiography and possible embolization. 5. If the diagnosis is in question, could consider a tagged red cell scan for further localization. 6. ERCP is not indicated at this time given the lack of equipment needed to stop an intraductal bleed. We will continue to follow. Please call with any questions. Job ID: [id number]
[2019-09-17 05:14] LABS: #Eosinphils 0.4 thou/uL (0.0-0.7); #Lymphocytes 1.5 thou/uL (1.20-3.40); #Monocytes 0.7 thou/uL (0.11-0.59); #Neutrophils 8.9 thou/uL (1.40-6.50); %Basophils 0.4 % (0.0-1.0); %Eosinophils 3.6 % (0.0-10.0); %Lymphocytes 13.2 % (21.0-51.0); %Monocytes 6.1 % (0.0-10.0); %Neutrophils 76.8 % (42.0-75.0); Mean Corpuscular HGB CONC 32.4 g/dL (32.0-36.0); Mean Corpuscular Hemoglobin 27.6 pg (27.0-31.0); Mean Platelet Volume 8.8 fL (7.4-10.4); Platelet Count 142 thou/uL (130-400); RBC Distribution Width 18.5 % (11.5-14.5); White Blood Cell (WBC) Count 11.6 thou/uL (4.8-10.8)
[2019-09-17 05:33] LABS: Anion Gap 12 mmol/L (10-20); BUN (Urea Nitrogen) 11 mg/dL (9.8-20.1); Calc. Creatinine Clearance 73 mL/min (70-130); Carbon Dioxide 22 mmol/L (23-31); Chloride 108 mmol/L (98-107); Estimated GFR-MDRD 53; Glucose 111 mg/dL (83-110); Potassium 3.8 mmol/L (3.5-5.1); Sodium 138 mmol/L (136-145)
--- NOTE | 2019-09-17 06:24 | PDOC.FM ---
- Subjective Subjective: Pt is nauseated today but alleviated with zofran. She continues to have dark stools. She tolerated the pRBC's yesterday well. - Objective Vital Signs & Weight: Vital Signs (12 hours) Temp Pulse Resp BP Pulse Ox 09/17/19 00:13 98.1 F 60 18 167/65 H 97 09/16/19 20:00 98.7 F 65 16 145/71 H 97 Weight Admit Weight 95.708 kg Weight 95.708 kg I&O: 09/15/19 09/16/19 09/17/19 06:59 06:59 06:59 Intake Total 2219 2049 Output Total 1999 Balance 2219 50 Result Diagrams: 09/17/19 04:59 09/17/19 04:57 Phys Exam - Physical Examination Constitutional: NAD HEENT: PERRLA, moist MMs Respiratory: no wheezing, no rales, no rhonchi, clear to auscultation bilateral Cardiovascular: RRR, no significant murmur Gastrointestinal: soft, non-tender, positive bowel sounds Musculoskeletal: no edema, pulses present Psychiatric: normal affect, A&O x 3 Dx/Plan (1) Anemia Code(s): D64.9 - ANEMIA, UNSPECIFIED Status: Acute (2) Atrial fibrillation Code(s): I48.91 - UNSPECIFIED ATRIAL FIBRILLATION Status: Acute (3) Upper GI bleed Code(s): K92.2 - GASTROINTESTINAL HEMORRHAGE, UNSPECIFIED Status: Acute (4) Atrial fibrillation with RVR Code(s): I48.91 - UNSPECIFIED ATRIAL FIBRILLATION Status: Acute (5) CKD (chronic kidney disease), stage III Code(s): N18.3 - CHRONIC KIDNEY DISEASE, STAGE 3 (MODERATE) Status: Acute (6) Diabetes Code(s): E11.9 - TYPE 2 DIABETES MELLITUS WITHOUT COMPLICATIONS Status: Acute (7) HLD (hyperlipidemia) Code(s): E78.5 - HYPERLIPIDEMIA, UNSPECIFIED Status: Acute (8) HTN (hypertension) Code(s): I10 - ESSENTIAL (PRIMARY) HYPERTENSION Status: Acute - Plan Plan: Symptomatic Anemia 2/2 Upper GI bleed Hgb 4.8 on admission. Normal colonoscopy 1 yr ago. Melanotic stool. FOBT +. - patient currently received 4th unit of pRBC on 09/17 - GI consulted; performed EGD on 09/15 revealing healing gastric ulcers, bleeding from ampulla of vater possibly hemobillia vs hemosuccus pancreatitis; recommend keeping H/H above 7/21. Recommended possible transfer to [facility] for CT angiography and possible embolizaitoin if pt has melena, does not respond well to transfusion. Pt's hgb dropped from 9.2 to 8.0 and she endorsed dark stool so at this time will contact Dr. Golden today and discuss possible transfer. He does not recommend ERCP at this time due to lack of equipment to stop an intraductal bleed. Also recommended considering tagged red cell scan. - Continue PPI IV BID # Mixed Anemia Blood loss anemia vs Low Folate - iron supplementation on discharge - folate, b12 supplementation on discharge DM II - ACHS, mild SS - Will continue to monitor and continue home regimen # Hx of a fib s/p pacemaker - aware, will continue to monitor. - Xarelto held for EGD, bleeding - pt is taking diltazem - she is finding current dose she takes at home so we can restart in the hospital. CKD stage 3 - aware, will continue to monitor. BUN/Cr at baseline. HLD - continue home medications Fluid Overload - continue lasix Constipation - reassess after EGD Code: DNAR VTE: SCDs GIppx: protonix IV Dispo: admit to medical, appreciate GI recs. LOS > 48hrs. Addendum - Attending - Attending Attestation Date/Time: 09/17/19 7344 I personally evaluated the patient and discussed the management with Dr. Jorge. I agree with the History, Examination, Assessment and Plan documented above with any addition or exceptions noted below. Patient feeling overall ok, having some nausea and intermittent headache. We are continuing to monitor her blood counts. GI on board and if she continues to decline will need transfer for more interventional GI procedures than what we can do here. Continue to monitor, pain control as needed. Currently on CLD and tolerating well.
[2019-09-17] MEDS: glipiZIDE 5 MG TAB PO SCH (09:15)
[2019-09-17] MEDS: Potassium Chloride 20 MEQ TAB PO SCH ×2 (09:15→17:49)
[2019-09-17] MEDS: Gabapentin 300 MG CAP PO SCH ×3 (09:16→20:33)
[2019-09-17] MEDS: Alogliptin 6.25 MG TAB PO SCH (09:16)
[2019-09-17] MEDS: Furosemide 40 MG TAB PO SCH (09:17)
[2019-09-17] MEDS: Digoxin 0.125 MG TAB PO SCH (09:17)
[2019-09-17] MEDS: Folic Acid 1 MG TAB PO SCH (09:17)
[2019-09-17] MEDS: Primidone 50 MG TAB PO SCH ×2 (09:17→20:37)
[2019-09-17] MEDS: Pantoprazole 40 MG VIAL IVP SCH ×2 (09:18→20:33)
--- NOTE | 2019-09-17 15:30 | PRG ---
DATE OF SERVICE: 09/17/2019 REASON FOR CONSULTATION: Anemia, melena/GI bleeding. SUBJECTIVE: Overnight, the patient did have an additional episode of melenic type stool, characterized as a black liquid type stool. She also was noted to have a decreased H and H when compared to yesterday despite infusion of red blood cells yesterday. She does have some mild abdominal discomfort at this time, but otherwise denies any nausea, vomiting, fevers, chills, hematemesis, or hematochezia. OBJECTIVE: VITAL SIGNS: Temperature 98.1, pulse 64, blood pressure 142/62, respiratory rate 19, and saturating 95% on room air. GENERAL: The patient is lying in bed, in no acute distress. Alert and oriented x4. CARDIOVASCULAR: Regular rate and rhythm. RESPIRATORY: Clear to auscultation bilaterally. ABDOMEN: Normoactive bowel sounds. Soft, nontender, and nondistended. EXTREMITIES: No cyanosis, clubbing, or edema. LABORATORY DATA: CBC with a white blood cell count of 11.6, hemoglobin 8, hematocrit 24.6, and platelets 142. Chemistry with a sodium of 138, potassium 3.8, chloride 108, CO2 of 22, BUN 11, creatinine 1.03, and glucose 111. IMAGING DATA: No current GI imaging is available for review. ASSESSMENT AND PLAN: 1. Upper gastrointestinal bleeding/bleeding from ampulla of Vater: The patient initially presented with complaints of melena and a drop in her H and H with esophagogastroduodenoscopy performed showing antral and pyloric channel erosions, but no overt ulcerations or active bleeding at that time. However, during the course of the esophagogastroduodenoscopy, she was noted to have blood coming from the ampulla that has not stopped with discontinuation of all anticoagulation medications. At this time, her CT scan did not reveal any abnormalities within the pancreas or the liver that might be further contributing to her bleeding. At this time, the origin of her bleeding is unknown, but it could be due to erosion of an inflammatory process into the vasculature within the liver or the pancreas. 2. Anemia of acute blood loss with iron deficiency anemia. 3. Atrial fibrillation on anticoagulation, now held secondary to gastrointestinal bleed. RECOMMENDATIONS: 1. Would continue the patient on pantoprazole IV 40 b.i.d. 2. Would continue to trend her H and H and transfuse as necessary to maintain an H and H of 06/18. 3. Continue to monitor clinically for signs of active GI bleeding. 4. Would attempt to transfer the patient to [facility] today for CT angiography and possible embolization. I have already talked to Dr. Piyush Grimes, in terms of this procedure and he is amenable toward performing it today. 5. If the patient does not have any findings on CT angiography, I would then recommend a tagged red cell scan for further localization. We will continue to follow. Please call with any questions. Job ID: [id number]
[2019-09-17 17:15] LABS: Hemoglobin 8.8 g/dL (12.0-16.0); Mean Corpuscular HGB CONC 31.9 g/dL (32.0-36.0); Mean Corpuscular Hemoglobin 28.2 pg (27.0-31.0); Mean Corpuscular Volume 88.1 fL (78.0-98.0); Mean Platelet Volume 9.1 fL (7.4-10.4); Platelet Count 143 thou/uL (130-400); RBC Distribution Width 18.8 % (11.5-14.5); Red Blood Cell (RBC) Count 3.12 mill/uL (4.20-5.40); White Blood Cell (WBC) Count 11.5 thou/uL (4.8-10.8)
[2019-09-17] MEDS: Atorvastatin Calcium 40 MG TAB PO SCH (20:33)
[2019-09-17] MEDS: Losartan 25 MG TAB PO SCH (20:33)
[2019-09-17] MEDS ORDERED: Diltiazem HCl CD 300 mg Capsule PO SCH (21:00)
[2019-09-18] MEDS: Ondansetron PF 4 MG/2 ML Vial IVP PRN (01:31)
--- NOTE | 2019-09-18 03:15 | PDOC.BPN ---
- Brief Progress Note Pt reported to the nurse awakening from her sleep with chest heaviness, nausea and radiation of the CP down RUE. I was paged and went to evaluate pt at bedside. Ordered Stat EKG and Trops. Pt reports no current CP when I arrived at bedside, but having the presence of "gas pain," in her back. No current Nausea or arm pain. No SOB, or diaphoresis. Vitals stable. Pt awake, A&OX3. RRR, no M/G/R. Lungs CTAB No active bleeding EKG did not show any acute changes, no ST changes. Trops pending. Most likely angina CP from demand ischemia 2/2 symptomatic anemia. Will continue to monitor.
[2019-09-18] MEDS ORDERED: Simethicone Chewable 80 MG TAB PO SCH (03:30)
[2019-09-18 03:40] LABS: Troponin I 0.056 ng/mL (< 0.028)
[2019-09-18 05:34] LABS: #Eosinphils 0.2 thou/uL (0.0-0.7); #Lymphocytes 0.7 thou/uL (1.20-3.40); #Monocytes 0.6 thou/uL (0.11-0.59); #Neutrophils 10.9 thou/uL (1.40-6.50); %Basophils 0.1 % (0.0-1.0); %Eosinophils 1.4 % (0.0-10.0); %Lymphocytes 5.4 % (21.0-51.0); %Neutrophils 88.2 % (42.0-75.0); Hemoglobin 7.9 g/dL (12.0-16.0); Mean Corpuscular HGB CONC 31.9 g/dL (32.0-36.0); Mean Corpuscular Hemoglobin 27.9 pg (27.0-31.0); Mean Corpuscular Volume 87.3 fL (78.0-98.0); Mean Platelet Volume 8.8 fL (7.4-10.4); Platelet Count 159 thou/uL (130-400); RBC Distribution Width 19.1 % (11.5-14.5); Red Blood Cell (RBC) Count 2.85 mill/uL (4.20-5.40); White Blood Cell (WBC) Count 12.4 thou/uL (4.8-10.8)
[2019-09-18 05:56] LABS: Anion Gap 16 mmol/L (10-20); BUN (Urea Nitrogen) 9 mg/dL (9.8-20.1); Calc. Creatinine Clearance 65 mL/min (70-130); Carbon Dioxide 21 mmol/L (23-31); Chloride 104 mmol/L (98-107); Estimated GFR-MDRD 45; Glucose 161 mg/dL (83-110); Potassium 3.7 mmol/L (3.5-5.1); Sodium 137 mmol/L (136-145)
[2019-09-18 06:04] LABS: Troponin I 0.096 ng/mL (< 0.028)
[2019-09-18] MEDS ORDERED: Nitroglycerin 0.4 MG TAB 1 EACH PO PRN (06:27)
--- NOTE | 2019-09-18 06:27 | PDOC.FM ---
- Subjective Subjective: Overnight patient had episode of chest pain radiating down into left arm and nausea. Repeat EKG was similar to initial EKG showed paced rhythm. Troponins elevated and trending up. Was given Nitro x 1. Patient currently not having any pain, states pain did resolve after nitro. Has seen Dr. Manzano in past for pacemaker placement but has not seen her since. Denies any history of [place]. - Objective MAR Reviewed: Yes Vital Signs & Weight: Vital Signs (12 hours) Temp Pulse Resp BP BP Pulse Ox 09/18/19 03:50 98.9 F 69 18 144/75 H 94 L 09/18/19 01:38 98.0 F 68 20 117/71 99 09/18/19 00:09 98.6 F 61 18 132/71 96 09/17/19 20:00 97 09/17/19 19:09 97.8 F 63 20 133/71 93 L 09/17/19 18:30 127/67 Weight Admit Weight 95.708 kg Weight 95.708 kg I&O: 09/16/19 09/17/19 09/18/19 06:59 06:59 06:59 Intake Total 2220 0 1200 Output Total 1999 Balance 2220 50 1200 Result Diagrams: 09/18/19 04:50 09/18/19 04:50 Phys Exam - Physical Examination Constitutional: NAD HEENT: PERRLA, moist MMs, sclera anicteric Neck: no JVD, supple, full ROM Respiratory: no wheezing, no rhonchi, clear to auscultation bilateral Cardiovascular: RRR, no significant murmur Gastrointestinal: soft, non-tender, no distention, positive bowel sounds Musculoskeletal: no edema, pulses present Neurological: normal sensation, moves all 4 limbs Psychiatric: normal affect, A&O x 3 Skin: no rash, normal turgor Dx/Plan (1) Anemia Code(s): D64.9 - ANEMIA, UNSPECIFIED Status: Acute Qualifiers: Anemia type: unspecified type Qualified Code(s): D64.9 - Anemia, unspecified (2) Atrial fibrillation Code(s): I48.91 - UNSPECIFIED ATRIAL FIBRILLATION Status: Acute Qualifiers: Atrial fibrillation type: longstanding persistent Qualified Code(s): I48.11 - Longstanding persistent atrial fibrillation (3) Upper GI bleed Code(s): K92.2 - GASTROINTESTINAL HEMORRHAGE, UNSPECIFIED Status: Acute (4) CKD (chronic kidney disease), stage III Code(s): N18.3 - CHRONIC KIDNEY DISEASE, STAGE 3 (MODERATE) Status: Acute (5) Diabetes Code(s): E11.9 - TYPE 2 DIABETES MELLITUS WITHOUT COMPLICATIONS Status: Acute Qualifiers: Diabetes mellitus type: type 2 Diabetes mellitus terminal gauger insulin use: without care home use Diabetes mellitus complication status: without complication Qualified Code(s): E11.9 - Type 2 diabetes mellitus without complications (6) HLD (hyperlipidemia) Code(s): E78.5 - HYPERLIPIDEMIA, UNSPECIFIED Status: Acute Qualifiers: Hyperlipidemia type: unspecified Qualified Code(s): E78.5 - Hyperlipidemia , unspecified (7) HTN (hypertension) Code(s): I10 - ESSENTIAL (PRIMARY) HYPERTENSION Status: Acute Qualifiers: Hypertension type: essential hypertension Qualified Code(s): I10 - Essential (primary) hypertension - Plan Plan: Patient is a 74 yo female who presents with weakness is admitted for symptomatic anemia: #Symptomatic Anemia 2/2 Upper GI bleed -Hgb 4.8 on admission. Normal colonoscopy 1 yr ago. Melanotic stool. FOBT +. - patient currently received 4th unit of pRBC on 09/17 - GI consulted; performed EGD on 09/15 revealing healing gastric ulcers, bleeding from ampulla of vater possibly hemobillia vs hemosuccus pancreatitis; recommend keeping H/H above 7/21. - transfer to [facility] on 09/[address] angiography and possible embolization, discussed with Dr. Golden, await official report with results -Dr. Golden does not recommend ERCP at this time due to lack of equipment to stop an intraductal bleed. Also recommended considering tagged red cell scan. - Continue PPI IV BID -as of 09/18, patient's Hgb dropped again to 7.9 (down from 9.0) #Mixed Anemia - Blood loss anemia vs Low Folate - iron supplementation on discharge - folate, b12 supplementation on discharge #DM II - ACHS, mild SS - Will continue to monitor and continue home regimen # Hx of AFib s/p pacemaker - aware, will continue to monitor. - Xarelto held for EGD, bleeding - pt is taking diltazem - home dose restarted #CKD stage 3 - aware, will continue to monitor. BUN/Cr at baseline. #HLD - continue home medications #Fluid Overload - continue lasix #Constipation - reassess after EGD #Chest Pain - improved after nitro x1 - Troponins: 0.056 -> 0.096, repeat pending for 0750 - Will consult cardiology, Dr. Bhatt this AM, appreciate recs - Lovenox and other anticoagulation contraindicated at this time due to acute GI bleed Code: DNAR VTE: SCDs GIppx: protonix IV Dispo: Stable, admitted to inpatient on medical unit. Await and appreciate further GI recs. Consider obtaining tagged red cell scan today. Await procedure report from [facility]. Will repeat H/H this PM and monitor for symptoms. Anticipate LOS >48hrs. Addendum - Attending - Attending Attestation Date/Time: 09/18/19 8631 I personally evaluated the patient and discussed the management with Dr. Longoria I agree with the History, Examination, Assessment and Plan documented above with any addition or exceptions noted below. Patient back from [facility] with a procedure done will need to coordinate with GI for further consideration. patient currently hemodynamically stable. Transfuse prn and consult with Cardiology given uptrending troponin and chest pain, previously seen by Dr Manzano et al. At this time patient not candidate for any anticoagulation given GI bleed.
[2019-09-18] MEDS ORDERED: Nitroglycerin 0.4 MG TAB (25 Tab Bottle) SL PRN (06:32)
[2019-09-18] MEDS: Primidone 50 MG TAB PO SCH ×2 (08:14→21:08)
[2019-09-18] MEDS: Pantoprazole 40 MG VIAL IVP SCH ×2 (08:14→21:09)
[2019-09-18] MEDS: Digoxin 0.125 MG TAB PO SCH (08:15)
[2019-09-18] MEDS: Alogliptin 6.25 MG TAB PO SCH (08:15)
[2019-09-18] MEDS: glipiZIDE 5 MG TAB PO SCH (08:15)
[2019-09-18] MEDS: Gabapentin 300 MG CAP PO SCH ×3 (08:18→21:08)
[2019-09-18] MEDS: Potassium Chloride 20 MEQ TAB PO SCH ×2 (08:19→17:19)
[2019-09-18] MEDS: Furosemide 40 MG TAB PO SCH (08:19)
[2019-09-18] MEDS: Folic Acid 1 MG TAB PO SCH (08:19)
[2019-09-18 09:48] LABS: Troponin I 1.468 ng/mL (< 0.028)
[2019-09-18] MEDS ORDERED: Gadobenate Dimeglumine 529 MG/1 ML (20ML VIAL) ONE (10:28)
--- NOTE | 2019-09-18 10:36 | PRG ---
DATE OF SERVICE: 09/18/2019 SUBJECTIVE: A 74-year-old lady, being seen for acute kidney injury. The patient denies any nausea, vomiting, or chest pain. OBJECTIVE: CONSTITUTIONAL: The patient is awake and alert. VITAL SIGNS: Pulse 65, breathing 16, and blood pressure GENERAL APPEARANCE AND MENTAL STATUS: Fair. HEAD/NECK: Normocephalic. Atraumatic. EYES: EOMI. No deformity. EARS: Clear. No ulcers. NOSE: Intact. No lesions. MOUTH: Clear. No discharge. THROAT: Clear. No exudate. LUNGS: Clear. No crackles. CARDIAC: S1, S2. No rub. ABDOMEN: Benign. Bowel sounds positive. GENITALIA/RECTUM: Fuller absent. BACK/EXTREMITIES: Edema 0+. NEUROLOGICAL: Alert and motor intact. SKIN: LABORATORY DATA: Reviewed. ASSESSMENT AND PLAN: 1. Acute kidney injury, stable. 2. Hypertension, stable. 3. Anemia. We would recommend Epogen transfusion. No indication for dialysis. I will sign off on this patient. Please reconsult as needed. Job ID: [id number]
[2019-09-18 15:23] LABS: Hemoglobin 8.7 g/dL (12.0-16.0)
[2019-09-18 16:26] LABS: Troponin I 8.691 ng/mL (< 0.028)
--- NOTE | 2019-09-18 16:36 | PRG ---
DATE OF SERVICE: 09/18/2019 SUBJECTIVE: Ms. Vickers mentioned that she has some gas in her stomach and her stomach hurts a lot more. She is not sure if it is worse than before she had her embolization yesterday. She has had no further bleeding. OBJECTIVE: VITAL SIGNS: Temperature 98, pulse 66, blood pressure 130/82. ABDOMEN: Soft. Bowel sounds are positive. There is no rebound. There is no guarding. EXTREMITIES: Trace edema. LABORATORY DATA: Hemoglobins 8.7 at 1500 hours, 7.9 at 4:00 a.m., 8.8 at 1645 hours, and 8 at 5 a.m. on 09/17. BMP normal except for a BUN of 9 and creatinine 1.17. The patient has been on the with normal liver function tests. 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 There was no elevation of liver function tests at least on the day of admission 09/13. They have not been repeated since that time. That is a typical presentation for hemobilia. It is usually a cause of biliary obstruction, some elevation of liver enzymes. The patient was transferred to [facility], where she had embolization of 2 faint blushes, 1 in the pancreas and 1 in the liver. There were no corresponding lesions on CT scan. MRI suggested she has had a pacemaker and cannot have a CT scan. RECOMMENDATIONS: Continue PPI. Monitor hemoglobin and hematocrit. We will review pictures from previous endoscopy. If the patient remains stable, she can go home in the next several day. She can get an outpatient EUS of the pancreas to rule out a pancreatic neoplasia, although bleeding pancreatic neoplasia causing a hemobilia without causing any signs of pancreatitis or elevated liver enzymes. It is quite atypical, especially that can be seen on CAT scan. We will follow along with you. Job ID: [id number]
--- NOTE | 2019-09-18 18:55 | CON ---
DATE OF CONSULTATION: REASON FOR CONSULTATION: Chest pain and indeterminate troponin. HISTORY OF PRESENT ILLNESS: Ms. Vickers is a pleasant 74-year-old woman with a previous history of CAD, status post pacer; history of chronic atrial fibrillation; and chronic kidney disease, who recently presented with GI bleed. She had an ulceration noted. It was difficult to treat. She had an episode of chest pain yesterday lasted 10 minutes. Her initial troponin was negative. Followup troponin was indeterminate. She is currently pain free. PAST MEDICAL HISTORY: Atrial fibrillation; breast cancer; diabetes mellitus; hypertension; chronic kidney disease; hyperthyroidism; sick sinus syndrome, status post pacer; venous insufficiency, status post pacemaker; and carpal tunnel release. SOCIAL HISTORY: No current tobacco or alcohol use. HOME MEDICATIONS: Include: 1. Atorvastatin. 2. Aspirin. 3. Potassium. 4. Digoxin. 5. Lasix. 6. Januvia. 7. Xarelto. 8. Primidone. 9. Losartan. 10. Diltiazem. 11. Toprol. 12. Glipizide. 13. Topamax. REVIEW OF SYSTEMS: A 10-point review of systems was reviewed as above, otherwise negative. PHYSICAL EXAMINATION: GENERAL: The patient is a pleasant woman, who is in no acute distress. The patient appears their stated age. VITAL SIGNS: Blood pressure 144/77, pulse 60, and respirations 23. NEUROLOGIC: The patient is alert and oriented x3 with no focal neurologic deficits. HEENT: Sclerae without icterus. Mouth has moist mucous membranes with normal pallor. NECK: No JVD. Carotid upstroke brisk. No bruits bilaterally. LUNGS: Clear to auscultation with unlabored respirations. BACK: No scoliosis or kyphosis. CARDIAC: Regular rate and rhythm with normal S1 and S2. No S3 or S4 noted. No significant rubs, murmurs, thrills, or gallops noted throughout the precordium. PMI is not displaced. There is no parasternal heave. ABDOMEN: Soft, nontender, nondistended. No peritoneal signs present. No hepatosplenomegaly. No abnormal striae. EXTREMITIES: 2+ femoral and 2+ dorsalis pedis pulses. No cyanosis, clubbing, or edema. SKIN: No gross abnormalities. PERTINENT LABORATORY DATA: Hemoglobin 7.9, white blood cell count 4.4. Troponin 8.6. IMPRESSION: 1. Chest pain, now resolved. 2. Elevated troponin. 3. Coronary artery disease. 4. Status post pacemaker. RECOMMENDATIONS: Certainly difficult situation for Ms. Vickers. She has received a total of 4 units of packed red blood cells. At this point, we will continue to support. We will avoid anticoagulants given that she has bruising and ulceration from the ampulla of Vater. We will discuss with GI. We would recommend transferring to telemetry monitoring for close observation. Recommend echo with Doppler. I disucssed with Dr. Holman. Pt likely with slow not acute bleed. Given R/B at this point, ok to start heparin and low dose ASA. I checked on pt in pm and doing ok without complaints after moved to [facility]. If Hb decreases will [place] need to treat conservatively and stop heparin. Job ID: [id number] MTDD
[2019-09-18] MEDS ORDERED: Heparin 25,000 units/D5W 500 ML IV SCH (19:00)
[2019-09-18] MEDS ORDERED: Aspirin Chewable 81 MG TAB PO SCH (19:00)
[2019-09-18 19:18] LABS: Troponin I 11.795 ng/mL (< 0.028)
[2019-09-18 20:46] LABS: Troponin I 16.751 ng/mL (< 0.028)
[2019-09-18] MEDS: Losartan 25 MG TAB PO SCH (21:08)
[2019-09-18] MEDS: Atorvastatin Calcium 40 MG TAB PO SCH (21:08)
[2019-09-18] MEDS: Heparin 10,000 UNITS/ 10 ML VIAL SLOW IVP SCH (21:20)
[2019-09-19 04:50] LABS: #Eosinphils 0.4 thou/uL (0.0-0.7); #Lymphocytes 1.5 thou/uL (1.20-3.40); #Monocytes 0.7 thou/uL (0.11-0.59); #Neutrophils 8.2 thou/uL (1.40-6.50); %Basophils 0.3 % (0.0-1.0); %Eosinophils 3.3 % (0.0-10.0); %Lymphocytes 13.9 % (21.0-51.0); %Monocytes 6.2 % (0.0-10.0); %Neutrophils 76.3 % (42.0-75.0); Hemoglobin 7.9 g/dL (12.0-16.0); Mean Corpuscular HGB CONC 31.7 g/dL (32.0-36.0); Mean Corpuscular Hemoglobin 27.8 pg (27.0-31.0); Mean Corpuscular Volume 87.8 fL (78.0-98.0); Mean Platelet Volume 8.5 fL (7.4-10.4); Platelet Count 148 thou/uL (130-400); RBC Distribution Width 18.6 % (11.5-14.5); Red Blood Cell (RBC) Count 2.84 mill/uL (4.20-5.40); White Blood Cell (WBC) Count 10.7 thou/uL (4.8-10.8)
[2019-09-19] MEDS: Heparin 10,000 UNITS/ 10 ML VIAL SLOW IVP SCH ×2 (05:07→20:36)
[2019-09-19 05:09] LABS: Anion Gap 13 mmol/L (10-20); BUN (Urea Nitrogen) 8 mg/dL (9.8-20.1); Calc. Creatinine Clearance 72 mL/min (70-130); Calcium 7.9 mg/dL (7.8-10.44); Carbon Dioxide 24 mmol/L (23-31); Chloride 107 mmol/L (98-107); Estimated GFR-MDRD 51; Glucose 137 mg/dL (83-110); Lipase 56 U/L (8-78); Potassium 3.8 mmol/L (3.5-5.1); Sodium 140 mmol/L (136-145)
[2019-09-19 05:15] LABS: ALT (SGPT) 10 U/L (8-55); AST (SGOT) 40 U/L (5-34); Alkaline Phosphatase 84 U/L (40-110); Bilirubin, Direct 0.2 mg/dL (0.1-0.3); Bilirubin, Total 0.4 mg/dL (0.2-1.2); Protein, Total 5.6 g/dL (6.0-8.3)
--- NOTE | 2019-09-19 06:21 | PDOC.FM ---
- Subjective Subjective: Yesterday afternoon and overnight the patient's troponins continued to trend up. During this time patient was asymptomatic, denied any chest pain or SOB. Was seen by Cardiology who gave ASA and started Heparin drip last night. This morning patient's troponin is up to 22. She is currently complaining of chest tightness and pressure, says she feels like she has a heavy weight on center of chest and this sensation is radiating down into her left arm. Additionally complains of nausea and indigestion. - Objective Vital Signs & Weight: Vital Signs (12 hours) Temp Pulse Resp BP Pulse Ox 09/19/19 04:00 97.9 F 65 16 123/58 L 95 09/18/19 23:55 97.9 F 61 18 146/60 H 96 09/18/19 19:53 98.1 F 65 14 142/61 H 99 09/18/19 18:19 98.3 F 70 16 124/72 93 L Weight Admit Weight 95.708 kg Weight 95.708 kg I&O: 09/17/19 09/18/19 09/19/19 06:59 06:59 06:59 Intake Total 2049 1200 1340 Output Total 1999 Balance 50 1200 1340 Result Diagrams: 09/19/19 04:32 09/19/19 04:32 Phys Exam - Physical Examination Constitutional: NAD HEENT: moist MMs, sclera anicteric Neck: no JVD, supple Respiratory: no wheezing, no rhonchi, clear to auscultation bilateral Cardiovascular: no significant murmur, no rub irregular rate and rhythm Gastrointestinal: soft, non-tender, no distention, positive bowel sounds Musculoskeletal: no edema, pulses present Neurological: normal sensation, moves all 4 limbs slight resting tremor in left hand Psychiatric: normal affect, A&O x 3 Skin: no rash, normal turgor Dx/Plan (1) Anemia Code(s): D64.9 - ANEMIA, UNSPECIFIED Status: Acute Qualifiers: Anemia type: unspecified type Qualified Code(s): D64.9 - Anemia, unspecified (2) Atrial fibrillation Code(s): I48.91 - UNSPECIFIED ATRIAL FIBRILLATION Status: Acute Qualifiers: Atrial fibrillation type: longstanding persistent Qualified Code(s): I48.11 - Longstanding persistent atrial fibrillation (3) Upper GI bleed Code(s): K92.2 - GASTROINTESTINAL HEMORRHAGE, UNSPECIFIED Status: Acute (4) CKD (chronic kidney disease), stage III Code(s): N18.3 - CHRONIC KIDNEY DISEASE, STAGE 3 (MODERATE) Status: Acute (5) Diabetes Code(s): E11.9 - TYPE 2 DIABETES MELLITUS WITHOUT COMPLICATIONS Status: Acute Qualifiers: Diabetes mellitus type: type 2 Diabetes mellitus medical terminologist insulin use: without medical terminologist use Diabetes mellitus complication status: without complication Qualified Code(s): E11.9 - Type 2 diabetes mellitus without complications (6) HLD (hyperlipidemia) Code(s): E78.5 - HYPERLIPIDEMIA, UNSPECIFIED Status: Acute Qualifiers: Hyperlipidemia type: unspecified Qualified Code(s): E78.5 - Hyperlipidemia , unspecified (7) HTN (hypertension) Code(s): I10 - ESSENTIAL (PRIMARY) HYPERTENSION Status: Acute Qualifiers: Hypertension type: essential hypertension Qualified Code(s): I10 - Essential (primary) hypertension - Plan Plan: Patient is a 74 yo female who presents with weakness is admitted for symptomatic anemia: #Symptomatic Anemia 2/2 Upper GI bleed - Hgb 4.8 on admission. Normal colonoscopy 1 yr ago. Melanotic stool. FOBT +. - patient currently received 4th unit of pRBC on 09/17 - GI consulted; performed EGD on 09/15 revealing healing gastric ulcers, bleeding from ampulla of vater possibly hemobillia vs hemosuccus pancreatitis; recommend keeping H/H above 7/21. - transfer to [facility] on 09/[address] angiography and embolization of vascular anomalies seen at level of pancreatic head and right lobe of the liver -Dr. Golden does not recommend ERCP at this time due to lack of equipment to stop an intraductal bleed. Also recommended considering tagged red cell scan if Hgb drops again - Continue PPI IV BID - Abdominal MRI did not show any apparent pathology to be causing bleeding - as of 09/19, patient's Hgb dropped again to 7.9 (down from 8.7 on 09/18) #Mixed Anemia - Blood loss anemia vs Low Folate - iron supplementation on discharge - folate, b12 supplementation on discharge #DM II - ACHS, mild SS - Will continue to monitor and continue home regimen # Hx of AFib s/p pacemaker - aware, will continue to monitor. - Xarelto held for EGD, bleeding - pt is taking diltazem - home dose restarted #CKD stage 3 - aware, will continue to monitor. BUN/Cr at baseline. #HLD - continue home medications #Fluid Overload - continue lasix #Constipation - reassess after EGD #Chest Pain - improved after nitro x1 - Troponins: 0.056 -> uptrended throughout day on 09/18 with cardiology notified -> last trop 16.8 at 1999 on 09/18, repeat pending from AM labs - patient moved from medical to telemetry unit on 09/18 - Consult cardiology, Dr. Bhatt & Dr. Gonzales, appreciate recs - Lovenox and other anticoagulation contraindicated at this time due to acute GI bleed - Patient given ASA on 09/18 and started on Heparin drip by Cardiology, will continue to monitor H/H Code: DNR-DNI VTE: SCDs GIppx: protonix IV Dispo: Guarded, admitted to inpatient on telemetry unit. Await and appreciate further GI and Cardiology recs. Will repeat H/H this PM and monitor for signs of bleeding or hemodynamic compromise. Continue to trend troponins. Anticipate LOS >48hrs. Addendum - Attending - Attending Attestation Date/Time: 09/19/19 1440 I personally evaluated the patient and discussed the management with Dr. Longoria I agree with the History, Examination, Assessment and Plan documented above with any addition or exceptions noted below. Patient with NSTEMI with significant troponin elevation for heart cath today IV nitrates, heparin started and will transfuse additional unit PRBC Patient is aware of her condition and status appreciate recommendations and treatment by GI and Applied Psychology Professor.
[2019-09-19 07:16] LABS: Troponin I 22.594 ng/mL (< 0.028)
--- NOTE | 2019-09-19 07:50 | MRI ---
EXAM: MRI of the abdomen without and with contrast COMPARISON: CT abdomen/pelvis 09/15/2019 HISTORY: GI bleed with tumor blush at the ampulla of Vater TECHNIQUE: Multiplanar multi sequence MR images were taken of the abdomen without and with IV contras t. [An MRCP was performed.] FINDINGS: Liver: No suspicious liver lesions. 11 mm simple cyst in the right lobe. Normal signal without dropou t on out of phase images. No abnormal enhancement. Gallbladder: No filling defects or gallbladder wall thickening. Common bile duct: Normal caliber without filling defects Adrenal glands: Unremarkable. Kidneys: 7 mm simple left renal cyst. No abnormal areas of enhancement. Spleen: Unremarkable. Pancreas: Unremarkable. No abnormal enhancement. No abnormality at the ampulla of Vater. Retroperitoneum: No enlarged lymph nodes Bones: No marrow signal abnormality. Visualized inferior thorax: Small bilateral pleural effusions. IMPRESSION: 1. Hepatic cyst 2. Left renal cyst 3. Small bilateral pleural effusions 4. No abnormality in the pancreas or at the ampulla of Vater.
[2019-09-19] MEDS: Furosemide 40 MG TAB PO SCH (08:26)
[2019-09-19] MEDS: glipiZIDE 5 MG TAB PO SCH (08:26)
[2019-09-19] MEDS: Potassium Chloride 20 MEQ TAB PO SCH ×2 (08:26→16:17)
[2019-09-19] MEDS: Gabapentin 300 MG CAP PO SCH ×3 (08:27→20:26)
[2019-09-19] MEDS: Digoxin 0.125 MG TAB PO SCH (08:27)
[2019-09-19] MEDS: Primidone 50 MG TAB PO SCH ×2 (08:28→20:41)
[2019-09-19] MEDS: Pantoprazole 40 MG VIAL IVP SCH ×2 (08:28→20:27)
[2019-09-19] MEDS: Alogliptin 6.25 MG TAB PO SCH (08:28)
[2019-09-19] MEDS: Folic Acid 1 MG TAB PO SCH (08:37)
[2019-09-19 10:02] LABS: CKMB 34.3 ng/mL (0-6.6)
[2019-09-19 10:02] LABS: CKMB 26.4 ng/mL (0-6.6)
[2019-09-19] MEDS ORDERED: Nitroglycerin 50 MG/250 ML BOT 250 ML ONE (10:35)
[2019-09-19] MEDS ORDERED: Nitroglycerin 50 MG/250 ML BOT 250 ML IVPB SCH (11:11)
--- NOTE | 2019-09-19 11:29 | PRG ---
DATE OF SERVICE: 09/19/2019 SUBJECTIVE: Ms. Vickers this morning had a brief episode of chest pain. She is currently now chest pain free. She did eat breakfast. Her troponins have increased. Her CK-MB though is on the downtrend. OBJECTIVE: GENERAL: Patient is a pleasant female who is in no acute distress. The patient appears their stated age. VITAL SIGNS: Blood pressure 140/67, pulse 66, temperature 98.6. NEUROLOGIC: The patient is alert and oriented x3 with no focal neurologic deficits. HEENT: Sclerae without icterus. Mouth has moist mucous membranes with normal pallor. NECK: No JVD. Carotid upstroke brisk. No bruits bilaterally. LUNGS: Clear to auscultation with unlabored respirations. BACK: No scoliosis or kyphosis. CARDIAC: Regular rate and rhythm with normal S1 and S2. No S3 or S4 noted. No significant rubs, murmurs, thrills, or gallops noted throughout the precordium. PMI is not displaced. There is no parasternal heave. ABDOMEN: Soft, nontender, nondistended. No peritoneal signs present. No hepatosplenomegaly. No abnormal striae. EXTREMITIES: 2+ femoral and 2+ dorsalis pedis pulses. No cyanosis, clubbing, or edema. SKIN: No gross abnormalities. PERTINENT LABORATORY DATA: Hemoglobin 7.9, creatinine 1.02, CK-MB 34 trending down to 26. EKG shows paced rhythm. IMPRESSION: 1. Non-Q-wave myocardial infarction. 2. Recurrent anemia. 3. Paroxysmal atrial fibrillation. RECOMMENDATIONS: Certainly, a very difficult case. The patient continues to be anemic. Discussed case with Dr. Travis Holman. Her MRI of the abdomen was negative for significant pathology. She did have hepatic cyst, left renal cyst, and small bilateral pleural effusions with no abnormalities in the pancreas. Given that Ms. Vickers continues to have intermittent pain with elevated troponins, I discussed proceeding with coronary angiography versus medical therapy. Again, her risks and benefits on proceeding with medical therapy versus angiography and vice versa. After discussing the options, it was decided to proceed with coronary angiography given continued pain, continue elevated troponin and increase in her CK-MB. I discussed procedure in full detail with Ms. Vickers. Risks include not limited to the following: , stroke, IA, need for emergency surgery, loss of limb, bleeding, and infection, as well as a reaction to the dye causing kidney failure and needing long-term dialysis. I also discussed the risks of PCI to include all of the above including coronary dissection and perforation in addition to acute stent thrombosis and restenosis. All questions about the procedure were answered. Given the above, the patient agreed to proceed with coronary angiography and possible PCI. All questions answered. We will proceed with a bare-metal stent if needed. At this point, we would recommend transferring her to the ICU for IV nitroglycerin, heparin, and transfusion. There are certainly inherent risks to stent placement in this case given the need for aspirin and Plavix, but it does feel like the benefits outweigh the risks given continued intermittent pain. Further recommendations pending the above. Job ID: [id number]
[2019-09-19] MEDS ORDERED: Heparin 25,000 units/D5W 500 ML IVPB SCH (11:30)
[2019-09-19] MEDS ORDERED: Heparin 10,000 UNITS/ 10 ML VIAL SLOW IVP SCH (11:30)
[2019-09-19] MEDS ORDERED: Lidocaine 1% (PF) 30 ML VIAL ONE (11:46)
[2019-09-19] MEDS ORDERED: Fentanyl 100 MCG/2 ML VIAL ONE (12:21)
[2019-09-19] MEDS ORDERED: Midazolam HCl 2 mg/2 ml Vial ONE (12:21)
[2019-09-19] MEDS ORDERED: Nitroglycerin 100MG/250ML BOT 250 ML ONE (12:31)
[2019-09-19] MEDS ORDERED: Acetaminophen/Codeine 30-300mg Tablet PO PRN ×2 (13:08)
[2019-09-19] MEDS ORDERED: Sodium Chloride 0.9% 200 ML IV PRN (13:08)
[2019-09-19] MEDS ORDERED: Nitroglycerin 0.4 MG TAB (25 Tab Bottle) SL PRN (13:08)
[2019-09-19] MEDS ORDERED: Sodium Chloride 0.9% 1,000 ML IV SCH (13:15)
[2019-09-19] MEDS: Aspirin 81 mg Enteric Coated Tablet PO SCH (15:12)
[2019-09-19 19:28] LABS: Hemoglobin 9.2 g/dL (12.0-16.0); Platelet Count 156 thou/uL (130-400)
[2019-09-19] MEDS: Atorvastatin Calcium 40 MG TAB PO SCH (20:26)
[2019-09-19] MEDS ORDERED: Iopamidol 370 76% 100 ML VIAL ONE (20:48)
[2019-09-19] MEDS: Heparin 25,000 units/D5W 500 ML IVPB SCH (21:17)
[2019-09-20 01:10] LABS: PTT 117.2 SEC (22.9-36.1)
[2019-09-20 04:37] LABS: #Basophils 0.1 thou/uL (0.0-0.2); #Eosinphils 0.4 thou/uL (0.0-0.7); #Lymphocytes 1.7 thou/uL (1.20-3.40); #Monocytes 0.6 thou/uL (0.11-0.59); #Neutrophils 7.7 thou/uL (1.40-6.50); %Basophils 0.6 % (0.0-1.0); %Eosinophils 3.7 % (0.0-10.0); %Lymphocytes 15.8 % (21.0-51.0); %Monocytes 6.1 % (0.0-10.0); %Neutrophils 73.8 % (42.0-75.0); Hemoglobin 8.6 g/dL (12.0-16.0); Mean Corpuscular HGB CONC 32.5 g/dL (32.0-36.0); Mean Corpuscular Hemoglobin 28.5 pg (27.0-31.0); Mean Corpuscular Volume 87.5 fL (78.0-98.0); Mean Platelet Volume 9.3 fL (7.4-10.4); Platelet Count 153 thou/uL (130-400); RBC Distribution Width 17.5 % (11.5-14.5); Red Blood Cell (RBC) Count 3.02 mill/uL (4.20-5.40); White Blood Cell (WBC) Count 10.5 thou/uL (4.8-10.8)
[2019-09-20 05:01] LABS: ALT (SGPT) 11 U/L (8-55); AST (SGOT) 22 U/L (5-34); Albumin 2.9 g/dL (3.4-4.8); Alkaline Phosphatase 76 U/L (40-110); Anion Gap 11 mmol/L (10-20); BUN (Urea Nitrogen) 8 mg/dL (9.8-20.1); Bilirubin, Direct 0.3 mg/dL (0.1-0.3); Bilirubin, Total 0.6 mg/dL (0.2-1.2); Calc. Creatinine Clearance 72 mL/min (70-130); Calcium 8.1 mg/dL (7.8-10.44); Carbon Dioxide 27 mmol/L (23-31); Chloride 106 mmol/L (98-107); Estimated GFR-MDRD 50; Glucose 104 mg/dL (83-110); Lipase 51 U/L (8-78); Potassium 3.8 mmol/L (3.5-5.1); Protein, Total 5.5 g/dL (6.0-8.3); Sodium 140 mmol/L (136-145)
--- NOTE | 2019-09-20 05:56 | PDOC.FM ---
- Subjective Subjective: Yesterday due to continued elevating troponins, elevated CKMB, and symptomatic chest tightness/pressure with nausea, it was determined to move the patient to CCU for a IV Nitro drip, CV heparin protocol, and plan for cath. Patient had cath performed at 1200 on 09/[address] Gonzales, during which it appeared the patient may have embolized her RCA but did have collateral flow available. No stent was placed. The patient was then restarted on her Heparin drip post- procedure at around 2000. This morning patient states that she feels a lot better. She states the tightness/pressure sensation in her chest that she was having the past 2 days has resolved. Denies nausea, pain, headache, dizziness. She did not have a BM yet today, but yesterday morning states her BM was brown in color "for the first time in months". - Objective Vital Signs & Weight: Vital Signs (12 hours) Temp Pulse Ox 09/20/19 04:00 98.6 F 09/20/19 00:00 99.3 F 09/19/19 20:00 99.1 F 100 Weight Admit Weight 95.708 kg Weight 96.8 kg Most Recent Monitor Data Heart Rate from ECG 63 NIBP 118/55 NIBP BP-Mean 76 Respiration from ECG 17 SpO2 97 I&O: 09/18/19 09/19/19 09/20/19 06:59 06:59 06:59 Intake Total 1200 1340 1248 Output Total 1750 Balance 1200 1340 -502 Result Diagrams: 09/20/19 03:55 09/20/19 03:55 Phys Exam - Physical Examination Constitutional: NAD HEENT: moist MMs, sclera anicteric Neck: no JVD, supple, full ROM Respiratory: no wheezing, no rhonchi, clear to auscultation bilateral Cardiovascular: RRR, no significant murmur Gastrointestinal: soft, non-tender, no distention, positive bowel sounds Musculoskeletal: no edema, pulses present Neurological: normal sensation, moves all 4 limbs mild resting tremor Psychiatric: normal affect, A&O x 3 Skin: no rash, normal turgor Dx/Plan (1) Anemia Code(s): D64.9 - ANEMIA, UNSPECIFIED Status: Acute Qualifiers: Anemia type: unspecified type Qualified Code(s): D64.9 - Anemia, unspecified (2) Atrial fibrillation Code(s): I48.91 - UNSPECIFIED ATRIAL FIBRILLATION Status: Acute Qualifiers: Atrial fibrillation type: longstanding persistent Qualified Code(s): I48.11 - Longstanding persistent atrial fibrillation (3) Upper GI bleed Code(s): K92.2 - GASTROINTESTINAL HEMORRHAGE, UNSPECIFIED Status: Acute (4) CKD (chronic kidney disease), stage III Code(s): N18.3 - CHRONIC KIDNEY DISEASE, STAGE 3 (MODERATE) Status: Acute (5) Diabetes Code(s): E11.9 - TYPE 2 DIABETES MELLITUS WITHOUT COMPLICATIONS Status: Acute Qualifiers: Diabetes mellitus type: type 2 Diabetes mellitus intermediate project manager insulin use: without shelter use Diabetes mellitus complication status: without complication Qualified Code(s): E11.9 - Type 2 diabetes mellitus without complications (6) HLD (hyperlipidemia) Code(s): E78.5 - HYPERLIPIDEMIA, UNSPECIFIED Status: Acute Qualifiers: Hyperlipidemia type: unspecified Qualified Code(s): E78.5 - Hyperlipidemia , unspecified (7) HTN (hypertension) Code(s): I10 - ESSENTIAL (PRIMARY) HYPERTENSION Status: Acute Qualifiers: Hypertension type: essential hypertension Qualified Code(s): I10 - Essential (primary) hypertension - Plan Plan: Patient is a 74 yo female who presents with weakness is admitted for symptomatic anemia: #Symptomatic Anemia 2/2 Upper GI bleed - Hgb 4.8 on admission. Normal colonoscopy 1 yr ago. Melanotic stool. FOBT +. - patient currently received 5th unit of pRBC on 09/19 - GI consulted; performed EGD on 09/15 revealing healing gastric ulcers, bleeding from ampulla of vater possibly hemobillia vs hemosuccus pancreatitis; recommend keeping H/H above 7/21. - transfer to [facility] on 09/[address] angiography and embolization of vascular anomalies seen at level of pancreatic head and right lobe of the liver -Dr. Golden does not recommend ERCP at this time due to lack of equipment to stop an intraductal bleed. Also recommended considering tagged red cell scan if Hgb drops again - Continue PPI IV BID - Abdominal MRI did not show any apparent pathology to be causing bleeding, did show hepatic cyst, left renal cyst, and small bilateral effusions with no evidence of edema around the pancreas - as of 09/20, patient's Hgb is at 8.6 (down from 9.2 on 09/19 in PM) - GI, Dr. Holman recommends to continue PPI, monitor H/H, and patient will need outpatient EUS of pancreas for further evaluation, appreciate recs. #Mixed Anemia - Blood loss anemia vs Low Folate - iron supplementation on discharge - folate, b12 supplementation on discharge #DM II - ACHS, mild SS - Will continue to monitor and continue home regimen # Hx of AFib s/p pacemaker - aware, will continue to monitor. - Xarelto held for EGD, bleeding - pt is taking diltazem - home dose restarted #CKD stage 3 - aware, will continue to monitor. BUN/Cr at baseline. #HLD - continue home medications #Fluid Overload - continue lasix #Constipation - reassess after EGD #Chest Pain - improved after nitro x1 - Troponins: 0.056 -> uptrended throughout day on 09/18 with cardiology notified -> last trop 22.5 at 0400 on 09/19 - CKMB 34.3 > 26.4 - patient moved from medical to telemetry unit on 09/18, moved from telemetry to CCU on 09/19 - Consult cardiology, Dr. Gonzales, appreciate recs - Lovenox and other anticoagulation contraindicated at this time due to acute GI bleed - Patient given ASA on 09/18 and started on Heparin drip by Cardiology, will continue to monitor H/H, plan to continue Heparin drip for at least 24 hours post-cath (started at 2000 on 09/19, will anticipate completion at 2000 today) - After heparin drip discontinued this evening will plan to switch to daily aspirin, still determining longer-term anticoagulation with plavix vs another agent. Difficult situation due to patient's GI bleed with this admission. Code: DNR-DNI VTE: SCDs GIppx: protonix IV Dispo: Stable, admitted to inpatient in CCU. Await and appreciate further GI and Cardiology recs. Will trend H/H and monitor for signs of bleeding or hemodynamic compromise. Anticipate LOS >48hrs. Addendum - Attending - Attending Attestation Date/Time: 09/20/19 5948 I personally evaluated the patient and discussed the management with Dr. Longoria I agree with the History, Examination, Assessment and Plan documented above with any addition or exceptions noted below. Patient stable s/p heart cath VSS no sign further GI bleeding patient continues on heparin. Will continue close observation transfuse prn may need transfusion for Hgb >7 i.e. continued chest pain in setting of recent Non Q wave ME.Appreciate recommendations from GI and Cardiology.
[2019-09-20] MEDS: Aspirin 81 mg Enteric Coated Tablet PO SCH (07:51)
[2019-09-20] MEDS: glipiZIDE 5 MG TAB PO SCH (07:51)
[2019-09-20] MEDS: Digoxin 0.125 MG TAB PO SCH (07:51)
[2019-09-20] MEDS: Alogliptin 6.25 MG TAB PO SCH (07:51)
[2019-09-20] MEDS: Potassium Chloride 20 MEQ TAB PO SCH ×2 (07:51→16:34)
--- NOTE | 2019-09-20 07:51 | PRG ---
DATE OF SERVICE: 09/19/2019 SUBJECTIVE: Ms. Vickers is stable from a GI bleeding standpoint. She was noted to have elevation of cardiac enzymes yesterday. EKG is difficult to interpret secondary to patient's age. She underwent cardiac cath today with Dr. Gonzales, found to have non-Q-wave infarction. We discussed the case. MRI was negative for severe pathology for hepatic masses or pancreatic mass or bleeding. Therefore, recommend to proceed with cardiac catheterization. She has ongoing pain and elevated troponins, transfused 1 unit of blood in the ICU, placed. She has been not bleeding. She is tolerating clear liquids. She has had no melena, or hematochezia or hematemesis. MEDICATIONS: She continues on: 1. Amlodipine. 2. Aspirin. 3. Atorvastatin. 4. Digoxin. 5. . 6. Torsemide. 7. Gabapentin. 8. Glipizide. 9. Heparin drip. 10. Metoprolol. 11. Nitroglycerin. 12. Protonix 40 IV b.i.d. 13. Primidone. 14. Sertraline. PHYSICAL EXAMINATION: GENERAL: She is resting comfortably in bed in the ICU, pulse is 60, blood pressure 121/61, afebrile, T-max 99.1. GENERAL: Alert, oriented. LUNGS: Clear. HEART: Regular rate and rhythm without clicks, rubs, or murmurs. ABDOMEN: Soft, nontender. LABORATORY DATA: Hemoglobin 9.2 after transfusion of 1 unit of blood, white count 10, platelet count 148, CK was up to 26.49 this morning. Electrolytes normal. AST 40. Liver function is normal. Bilirubin normal. Lipase 56. ASSESSMENT: There is concern for shows scant amount of blood in the ampullary area. I suspect she has had not overt hemorrhage from liver or pancreas as she has had normal liver function test. It is probably scant within the duct is also possible when she was previously on anticoagulation, when she came in. There was no significant clotting to cause blockage in the biliary or pancreatic system. An outside angiogram and embolization with beads performed at [facility], showed possible 2 blushes, one in the liver, one in the pancreas, but these were not seen at her MRI with contrast to confirm masses, previous CAT scan showed only a cyst. She did have some other small erosions in the upper GI tract. It is possible that she was bleeding from the current site from an erosion If she has recurrent bleeding, I would consider repeat endoscopy to evaluate biopsies from the stomach to rule out H. pylori. ASSESSMENT: 1. Gastrointestinal bleed as above. 2. Myocardial infarction, non-Q, status post catheterization with no intervention performed. RECOMMENDATIONS: Continue anticoagulation as needed from cardiac standpoint. Continue to transfuse to keep hemoglobin greater than 9. She received 5 total units of blood now. She presented with an initial hemoglobin of 4.8 and she has had appropriate response. I think her bleeding time continuous over several months, likely related to unknown lesion at this time and her blood thinners. We will continue watching hemoglobin closely and do intervention, if necessary. One consideration would be that she has had a type of bleeding from that , but no overt lesions are seen at this time. She does have small erosions in GI tract. Again we would consider repeat evaluation in the ampulla, if she would have signs of further acute bleeding. We will follow along with you in the ICU. Job ID: [id number]
[2019-09-20] MEDS: Folic Acid 1 MG TAB PO SCH (07:52)
[2019-09-20] MEDS: Gabapentin 300 MG CAP PO SCH ×3 (07:52→21:10)
[2019-09-20] MEDS: Furosemide 40 MG TAB PO SCH (07:52)
[2019-09-20] MEDS: Primidone 50 MG TAB PO SCH ×2 (07:53→21:11)
[2019-09-20] MEDS: Pantoprazole 40 MG VIAL IVP SCH ×2 (07:53→21:11)
--- NOTE | 2019-09-20 09:03 | PRG ---
DATE OF SERVICE: 09/20/2019 SUBJECTIVE: Ms. Vickers is doing well. She had a good night. No current complaints. OBJECTIVE: VITAL SIGNS: Blood pressure 155/59, pulse 62, and temperature afebrile. LUNGS: Clear to auscultation. HEART: Regular rate and rhythm. ABDOMEN: Soft, nontender, nondistended. EXTREMITIES: No edema. PERTINENT LABORATORY DATA: Hemoglobin 8.6, which is down from 9.2. Creatinine 1.02. CK-MB yesterday was downtrending from 34 to 26. IMPRESSION: 1. Non-Q wave myocardial infarction. 2. Gastrointestinal bleed. 3. Paroxysmal atrial fibrillation. RECOMMENDATIONS: Ms. Vickers's symptoms likely related to embolic phenomena from paroxysmal atrial fibrillation. Her anticoagulation was stopped appropriately due to a hemoglobin of 4.8. She may have developed a thrombus during the interim causing acute occlusion of the distal PDA. The distal PDA appeared too small to intervene and given the fact that she had persistent anemia with a total of 6 units of red blood cells. I did not feel the benefits were worth the risk. She did have collaterals noted from the LAD. At this point, as long as her hemoglobin is stable, we will continue heparin over 24 hours. We will like to add aspirin and Plavix. Once she is clear from a bleeding standpoint, we would recommend reinstituting anticoagulation therapy in addition to Plavix with no aspirin. We will see guidance from GI. We will continue atorvastatin in addition to aspirin, metoprolol, and Cardizem. Job ID: [id number]
--- NOTE | 2019-09-20 14:22 | PRG ---
DATE OF SERVICE: 09/20/2019 SUBJECTIVE: Ms. Vickers has noted no vomiting or diarrhea or melena or hematochezia. OBJECTIVE: VITAL SIGNS: Temperature is 98, pulse 68, blood pressure 153/85. LUNGS: Clear. ABDOMEN: Soft, nontender. LABORATORY DATA: White count 10.5, hemoglobin 8.6, platelet count 153. Most recent INR 60. Liver function tests and lipase are normal. ASSESSMENT: 1. Gastrointestinal bleed with concern for possible hemobilia, as there was bleeding at the ampulla, but there was no evidence of elevated liver enzymes or pancreatitis, nor the CT scan findings suggestive of dilated obstructed biliary or pancreatic ducts, and no overt pancreatic or biliary or hepatic lesions on MR abdomen films. 2. Nonacute myocardial infarction. RECOMMENDATIONS: 1. I have talked with Cardiology, who recommended the . I do not think there are any contraindications with blood thinners at this point. If she has signs of bleeding, we can always back off. 2. Continue PPI. 3. Advance diet as tolerated. Job ID: [id number]
[2019-09-20] MEDS: Heparin 10,000 UNITS/ 10 ML VIAL SLOW IVP SCH (19:23)
[2019-09-20] MEDS: Atorvastatin Calcium 40 MG TAB PO SCH (21:09)
[2019-09-20] MEDS: Heparin 25,000 units/D5W 500 ML IVPB SCH (22:25)
--- NOTE | 2019-09-21 05:46 | PDOC.FM ---
- Subjective Subjective: Patient is resting quietly in bed this morning. Says she continues to feel better and has no complaints this morning. - Objective Vital Signs & Weight: Vital Signs (12 hours) Temp Pulse Resp BP Pulse Ox 09/21/19 04:00 98.2 F 60 16 125/58 L 94 L 09/21/19 00:00 98.7 F 60 16 136/63 95 09/20/19 19:31 99.1 F 61 16 139/63 98 Weight Admit Weight 95.708 kg Weight 96.8 kg Most Recent Monitor Data Heart Rate from ECG 60 NIBP 145/67 NIBP BP-Mean 93 Respiration from ECG 12 SpO2 98 I&O: 09/19/19 09/20/19 09/21/19 06:59 06:59 06:59 Intake Total 1340 1248 882 Output Total 1750 500 Balance 1340 -502 382 Result Diagrams: 09/21/19 12:18 09/21/19 05:35 Phys Exam - Physical Examination Constitutional: NAD HEENT: moist MMs, sclera anicteric Neck: no JVD, supple, full ROM Respiratory: no wheezing, no rhonchi, clear to auscultation bilateral Cardiovascular: RRR, no significant murmur Gastrointestinal: soft, non-tender, no distention, positive bowel sounds Musculoskeletal: no edema, pulses present Neurological: normal sensation, moves all 4 limbs resting tremor in left upper extremity Psychiatric: normal affect, A&O x 3 Skin: no rash, normal turgor Dx/Plan (1) Anemia Code(s): D64.9 - ANEMIA, UNSPECIFIED Status: Acute Qualifiers: Anemia type: unspecified type Qualified Code(s): D64.9 - Anemia, unspecified (2) Atrial fibrillation Code(s): I48.91 - UNSPECIFIED ATRIAL FIBRILLATION Status: Acute Qualifiers: Atrial fibrillation type: longstanding persistent Qualified Code(s): I48.11 - Longstanding persistent atrial fibrillation (3) Upper GI bleed Code(s): K92.2 - GASTROINTESTINAL HEMORRHAGE, UNSPECIFIED Status: Acute (4) CKD (chronic kidney disease), stage III Code(s): N18.3 - CHRONIC KIDNEY DISEASE, STAGE 3 (MODERATE) Status: Acute (5) Diabetes Code(s): E11.9 - TYPE 2 DIABETES MELLITUS WITHOUT COMPLICATIONS Status: Acute Qualifiers: Diabetes mellitus type: type 2 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 termite exterminator helper use Diabetes mellitus complication status: without complication Qualified Code(s): E11.9 - Type 2 diabetes mellitus without complications (6) HLD (hyperlipidemia) Code(s): E78.5 - HYPERLIPIDEMIA, UNSPECIFIED Status: Acute Qualifiers: Hyperlipidemia type: unspecified Qualified Code(s): E78.5 - Hyperlipidemia , unspecified (7) HTN (hypertension) Code(s): I10 - ESSENTIAL (PRIMARY) HYPERTENSION Status: Acute Qualifiers: Hypertension type: essential hypertension Qualified Code(s): I10 - Essential (primary) hypertension - Plan Plan: Patient is a 74 yo female who presents with weakness is admitted for symptomatic anemia: #Symptomatic Anemia 2/2 Upper GI bleed - Hgb 4.8 on admission. Normal colonoscopy 1 yr ago. Melanotic stool. FOBT +. - patient currently received 5th unit of pRBC on 09/19 - GI consulted; performed EGD on 09/15 revealing healing gastric ulcers, bleeding from ampulla of vater possibly hemobillia vs hemosuccus pancreatitis; recommend keeping H/H above 7/21. - transfer to [facility] on 09/[address] angiography and embolization of vascular anomalies seen at level of pancreatic head and right lobe of the liver -Dr. Golden does not recommend ERCP at this time due to lack of equipment to stop an intraductal bleed. Also recommended considering tagged red cell scan if Hgb drops again - Continue PPI IV BID - Abdominal MRI did not show any apparent pathology to be causing bleeding, did show hepatic cyst, left renal cyst, and small bilateral effusions with no evidence of edema around the pancreas - as of 09/20, patient's Hgb is at 8.6 (down from 9.2 on 09/19 in PM) - GI, Dr. Holman recommends to continue PPI, monitor H/H, and patient will need outpatient EUS of pancreas for further evaluation, appreciate recs. #Mixed Anemia - Blood loss anemia vs Low Folate - iron supplementation on discharge - folate, b12 supplementation on discharge #DM II - ACHS, mild SS - Will continue to monitor and continue home regimen # Hx of AFib s/p pacemaker - aware, will continue to monitor. - Xarelto held for EGD, bleeding - pt is taking diltazem - home dose restarted #CKD stage 3 - aware, will continue to monitor. BUN/Cr at baseline. #HLD - continue home medications #Fluid Overload - continue lasix #Constipation - reassess after EGD #Chest Pain-> non-Q Wave [place] - chest pain improved after nitro - Troponins: 0.056 -> uptrended throughout day on 09/18 with cardiology notified -> last trop 22.5 at 0400 on 09/19 - CKMB 34.3 > 26.4 - patient moved from medical to telemetry unit on 09/18, moved from telemetry to CCU on 09/19, CCU to telemetry on 09/20 - Consult cardiology, Dr. Gonzales, appreciate recs - Lovenox and other anticoagulation contraindicated at this time due to acute GI bleed--cleared by Dr. Holman, GI to restart anticoagulation with close monitoring, will plan to restart Xarelto and Plavix after Heparin drip is discontinued today - Patient given ASA on 09/18 and started on Heparin drip by Cardiology, will continue to monitor H/H, plan to continue Heparin drip for at least 24 hours post-cath (started at 1999 on 09/19, will anticipate completion today) then switch to Plavix & oral anticoagulant -Difficult situation due to patient's GI bleed with this admission. Code: DNR-DNI VTE: SCDs GIppx: protonix IV Dispo: Stable, admitted to inpatient on telemetry. Await and appreciate further GI and Cardiology recs. Will trend H/H and monitor for signs of bleeding or hemodynamic compromise. Plan to discontinue Heparin today and switch to Plavix & Xarelto. Anticipate discharge in <48hrs. Addendum - Attending - Attending Attestation Date/Time: 09/21/19 [id number] I personally evaluated the patient and discussed the management with Dr. Longoria I agree with the History, Examination, Assessment and Plan documented above with any addition or exceptions noted below.
[2019-09-21 05:48] LABS: #Basophils 0.1 thou/uL (0.0-0.2); #Eosinphils 0.5 thou/uL (0.0-0.7); #Lymphocytes 1.7 thou/uL (1.20-3.40); #Monocytes 0.6 thou/uL (0.11-0.59); #Neutrophils 7.7 thou/uL (1.40-6.50); %Basophils 0.6 % (0.0-1.0); %Eosinophils 4.5 % (0.0-10.0); %Lymphocytes 16.1 % (21.0-51.0); %Monocytes 5.6 % (0.0-10.0); %Neutrophils 73.3 % (42.0-75.0); Hemoglobin 9.1 g/dL (12.0-16.0); Mean Corpuscular HGB CONC 31.7 g/dL (32.0-36.0); Mean Corpuscular Hemoglobin 27.9 pg (27.0-31.0); Mean Platelet Volume 8.4 fL (7.4-10.4); Platelet Count 163 thou/uL (130-400); RBC Distribution Width 17.3 % (11.5-14.5); Red Blood Cell (RBC) Count 3.25 mill/uL (4.20-5.40); White Blood Cell (WBC) Count 10.6 thou/uL (4.8-10.8)
[2019-09-21 06:07] LABS: Anion Gap 12 mmol/L (10-20); BUN (Urea Nitrogen) 10 mg/dL (9.8-20.1); Calc. Creatinine Clearance 73 mL/min (70-130); Calcium 8.4 mg/dL (7.8-10.44); Carbon Dioxide 25 mmol/L (23-31); Chloride 106 mmol/L (98-107); Estimated GFR-MDRD 52; Glucose 129 mg/dL (83-110); Potassium 3.6 mmol/L (3.5-5.1); Sodium 139 mmol/L (136-145)
[2019-09-21] MEDS: Gabapentin 300 MG CAP PO SCH ×3 (08:50→21:54)
[2019-09-21] MEDS: glipiZIDE 5 MG TAB PO SCH (08:51)
[2019-09-21] MEDS: Digoxin 0.125 MG TAB PO SCH (08:51)
[2019-09-21] MEDS: Furosemide 40 MG TAB PO SCH (08:51)
[2019-09-21] MEDS: Folic Acid 1 MG TAB PO SCH (08:51)
[2019-09-21] MEDS: Potassium Chloride 20 MEQ TAB PO SCH ×2 (08:52→18:10)
[2019-09-21] MEDS: Aspirin 81 mg Enteric Coated Tablet PO SCH (08:52)
[2019-09-21] MEDS: Alogliptin 6.25 MG TAB PO SCH (08:52)
[2019-09-21] MEDS: Pantoprazole 40 MG VIAL IVP SCH ×2 (08:53→21:55)
[2019-09-21] MEDS ORDERED: Clopidogrel Bisulfate 75 MG TAB PO SCH (09:45)
[2019-09-21] MEDS: Primidone 50 MG TAB PO SCH ×2 (10:04→21:56)
[2019-09-21] MEDS ORDERED: Furosemide 40 MG/4 ML VIAL IVP SCH (10:15)
--- NOTE | 2019-09-21 10:15 | PRG ---
DATE OF SERVICE: 09/21/2019 SUBJECTIVE: Ms. Shannon Vickers is doing well. No current complaints. No recurrent chest pain or pressure. She does get intermittently short of breath. OBJECTIVE: VITAL SIGNS: Blood pressure 125/58, pulse 60, temperature 98.2. LUNGS: Crackles noted bilaterally. HEART: Regular rate and rhythm. ABDOMEN: Soft, nontender, and nondistended. EXTREMITIES: No edema. PERTINENT LABORATORY DATA: Hemoglobin 9.1. Creatinine 1.04. IMPRESSION: 1. Recent myocardial infarction. 2. Anemia. 3. Status post pacemaker. 4. Atrial fibrillation. RECOMMENDATIONS: 1. We will give a dose of Lasix. The patient does appear to be fluid overloaded. LVEF estimated to 40%. 2. We would like to reinstitute anticoagulation therapy when okay with GI. The patient likely had embolic phenomenon to the right coronary artery, causing her recent IN. Job ID: [id number]
[2019-09-21 12:40] LABS: Hemoglobin 10.8 g/dL (12.0-16.0); Platelet Count 191 thou/uL (130-400)
--- NOTE | 2019-09-21 13:28 | PRG ---
DATE OF SERVICE: 09/21/2019 SUBJECTIVE: Ms. Vickers has had no bowel movements. No signs of bleeding. She is eating regular diet, feels well. Cardiology wants to restart her anticoagulation as soon as possible. She is tolerating IV heparin drip. Plavix was set to restart tomorrow. Xarelto restarted last night. OBJECTIVE: VITAL SIGNS: Blood pressure is 169/77 and temperature is 96.3. ABDOMEN: Soft and nontender. LUNGS: Clear. HEART: Regular rhythm. LABORATORY DATA: Hemoglobin is 10.8 this afternoon, 9.1 this morning. BUN and creatinine are 10 and 1.04. ASSESSMENT: There have been no signs of further bleeding. I think she is okay to restart her anticoagulation. Dual anticoagulation may be a little difficult for her and require a test. I would leave her in the hospital for 4 or 5 days, make sure she does not bleed if she is restarted on both anticoagulation and antiplatelet therapy. She has significant risk to rebleed; if she does, I will have to rethink the plan on her anticoagulation. Job ID: [id number]
[2019-09-21 14:15] VITALS: BMI 36.5
[2019-09-21 19:06] LABS: Hemoglobin 10.4 g/dL (12.0-16.0); Platelet Count 194 thou/uL (130-400)
[2019-09-21] MEDS: Atorvastatin Calcium 40 MG TAB PO SCH (21:54)
[2019-09-21] MEDS: Rivaroxaban 15 MG TAB PO SCH (21:56)
[2019-09-22 05:17] LABS: #Basophils 0.1 thou/uL (0.0-0.2); #Eosinphils 0.5 thou/uL (0.0-0.7); #Lymphocytes 1.4 thou/uL (1.20-3.40); #Monocytes 0.7 thou/uL (0.11-0.59); #Neutrophils 7.6 thou/uL (1.40-6.50); %Basophils 0.5 % (0.0-1.0); %Eosinophils 4.5 % (0.0-10.0); %Lymphocytes 13.9 % (21.0-51.0); %Monocytes 6.6 % (0.0-10.0); %Neutrophils 74.5 % (42.0-75.0); Mean Corpuscular HGB CONC 32.3 g/dL (32.0-36.0); Mean Corpuscular Hemoglobin 28.4 pg (27.0-31.0); Mean Corpuscular Volume 87.9 fL (78.0-98.0); Mean Platelet Volume 8.4 fL (7.4-10.4); Platelet Count 184 thou/uL (130-400); RBC Distribution Width 17.1 % (11.5-14.5); Red Blood Cell (RBC) Count 3.19 mill/uL (4.20-5.40); White Blood Cell (WBC) Count 10.2 thou/uL (4.8-10.8)
[2019-09-22 05:35] LABS: Anion Gap 13 mmol/L (10-20); BUN (Urea Nitrogen) 11 mg/dL (9.8-20.1); Calc. Creatinine Clearance 69 mL/min (70-130); Calcium 8.5 mg/dL (7.8-10.44); Carbon Dioxide 25 mmol/L (23-31); Chloride 106 mmol/L (98-107); Estimated GFR-MDRD 48; Glucose 95 mg/dL (83-110); Potassium 3.8 mmol/L (3.5-5.1); Sodium 140 mmol/L (136-145)
--- NOTE | 2019-09-22 06:00 | PDOC.FM ---
- Subjective Subjective: Patient has no complaints this mornings. Denies chest pain, SOB, dizzy/ lightheaded, weakness, myalgia, paresthesias. Patient states that her BMs the past 2 days have been brown, a change from weeks previous when they were black/ dark brown. Hgb this morning is at 9.0, down from 10.4 yesterday but still above where she has been the past few days. - Objective MAR Reviewed: Yes Vital Signs & Weight: Vital Signs (12 hours) Temp Pulse Resp BP BP BP Pulse Ox 09/22/19 03:43 98.2 F 63 18 122/58 L 96 09/21/19 20:00 98.4 F 61 16 142/64 H 96 09/21/19 18:10 98.3 F 65 18 162/66 H 97 Weight Admit Weight 95.708 kg Weight 81.284 kg Most Recent Monitor Data Heart Rate from ECG 60 NIBP 145/67 NIBP BP-Mean 93 Respiration from ECG 12 SpO2 98 I&O: 09/20/19 09/21/19 09/22/19 06:59 06:59 06:59 Intake Total 1248 882 Output Total 1750 500 Balance -502 382 Result Diagrams: 09/22/19 04:26 09/22/19 04:26 Phys Exam - Physical Examination Constitutional: NAD HEENT: moist MMs, sclera anicteric Neck: no JVD, supple, full ROM Respiratory: no wheezing, no rhonchi, clear to auscultation bilateral Cardiovascular: RRR, no significant murmur Gastrointestinal: soft, non-tender, no distention, positive bowel sounds Musculoskeletal: no edema, pulses present Neurological: normal sensation, moves all 4 limbs mild resting tremor in left hand Psychiatric: normal affect, A&O x 3 Skin: no rash, normal turgor Dx/Plan (1) Anemia Code(s): D64.9 - ANEMIA, UNSPECIFIED Status: Acute Qualifiers: Anemia type: unspecified type Qualified Code(s): D64.9 - Anemia, unspecified (2) Atrial fibrillation Code(s): I48.91 - UNSPECIFIED ATRIAL FIBRILLATION Status: Acute Qualifiers: Atrial fibrillation type: longstanding persistent Qualified Code(s): I48.11 - Longstanding persistent atrial fibrillation (3) Upper GI bleed Code(s): K92.2 - GASTROINTESTINAL HEMORRHAGE, UNSPECIFIED Status: Acute (4) CKD (chronic kidney disease), stage III Code(s): N18.3 - CHRONIC KIDNEY DISEASE, STAGE 3 (MODERATE) Status: Acute (5) Diabetes Code(s): E11.9 - TYPE 2 DIABETES MELLITUS WITHOUT COMPLICATIONS Status: Acute Qualifiers: Diabetes mellitus type: type 2 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 Diabetes mellitus complication status: without complication Qualified Code(s): E11.9 - Type 2 diabetes mellitus without complications (6) HLD (hyperlipidemia) Code(s): E78.5 - HYPERLIPIDEMIA, UNSPECIFIED Status: Acute Qualifiers: Hyperlipidemia type: unspecified Qualified Code(s): E78.5 - Hyperlipidemia , unspecified (7) HTN (hypertension) Code(s): I10 - ESSENTIAL (PRIMARY) HYPERTENSION Status: Acute Qualifiers: Hypertension type: essential hypertension Qualified Code(s): I10 - Essential (primary) hypertension - Plan Plan: Patient is a 74 yo female who presents with weakness is admitted for symptomatic anemia: #Symptomatic Anemia 2/2 Upper GI bleed - Hgb 4.8 on admission. Normal colonoscopy 1 yr ago. Melanotic stool. FOBT +. - patient currently received 5th unit of pRBC on 09/19 - GI consulted; performed EGD on 09/15 revealing healing gastric ulcers, bleeding from ampulla of vater possibly hemobillia vs hemosuccus pancreatitis; recommend keeping H/H above 7/21. - transfer to [facility] on 09/[address] angiography and embolization of vascular anomalies seen at level of pancreatic head and right lobe of the liver -Dr. Golden does not recommend ERCP at this time due to lack of equipment to stop an intraductal bleed. Also recommended considering tagged red cell scan if Hgb drops again - Continue PPI IV BID - Abdominal MRI did not show any apparent pathology to be causing bleeding, did show hepatic cyst, left renal cyst, and small bilateral effusions with no evidence of edema around the pancreas - as of 09/22, patient's Hgb is at 9.0 - GI, Dr. Holman recommends to continue PPI, monitor H/H, and patient will need outpatient EUS of pancreas for further evaluation. States that patient okay to restart anticoagulation with caution. If restart anticoagulation and antiplatelet therapy then will need to stay an additional 4 days to monitor for signs of rebleed and if this does occur will need to reconsider anticoagluation therapy plan, appreciate recs. #Mixed Anemia - Blood loss anemia vs Low Folate - iron supplementation on discharge - folate, b12 supplementation on discharge #DM II - ACHS, mild SS - Will continue to monitor and continue home regimen # Hx of AFib s/p pacemaker - aware, will continue to monitor. - Xarelto initially held for bleeding, restarted on 09/21 - pt is taking diltazem - home dose restarted #CKD stage 3 - aware, will continue to monitor. BUN/Cr at baseline. #HLD - continue home medications #Fluid Overload --> HFrEF - continue lasix - given 1 time IV Lasix [address] Gonzales on 09/21 - ECHO on 09/21: EF 40-45%, unable to assess diastolic function #Constipation - resolved with 2 BMs in past 48 hours #Chest Pain-> non-Q Wave [place] - chest pain improved after nitro - Troponins: 0.056 -> uptrended throughout day on 09/18 with cardiology notified -> last trop 22.5 at 0400 on 09/19 - CKMB 34.3 > 26.4 - patient moved from medical to telemetry unit on 09/18, moved from telemetry to CCU on 09/19, CCU to telemetry on 09/20 - Consult cardiology, Dr. Gonzales, appreciate recs--continue Metoprolol, Atorvastatin, Digoxin, & Cardizem; hold off on ASA therapy - Lovenox and other anticoagulation contraindicated initially due to acute GI bleed, Heparin drip from 09/19 to 09/21--cleared by Dr. Holman, GI. Restarted Xarelto & Plavix on 09/21 with continued close monitoring of H/H -Difficult situation due to patient's GI bleed with this admission. -ECHO on 09/21: EF 40-45%, difficult study, unable to assess diastolic function Code: DNR-DNI VTE: SCDs GIppx: protonix IV Dispo: Stable, admitted to inpatient on telemetry. Await and appreciate further GI and Cardiology recs. Will trend H/H and monitor for signs of bleeding or hemodynamic compromise. Plan to continue Plavix & Xarelto, will d/c if sign of bleed. Anticipate discharge in >48hrs. Addendum - Attending - Attending Attestation Date/Time: 09/22/19 1860 I personally evaluated the patient and discussed the management with Dr. Longoria I agree with the History, Examination, Assessment and Plan documented above with any addition or exceptions noted below. Continue observation on current DOAC and antiplatelet regimen appreciate GI and Cardiology recommendation she continues to do well.
[2019-09-22] MEDS: Potassium Chloride 20 MEQ TAB PO SCH ×2 (08:28→16:15)
[2019-09-22] MEDS: Gabapentin 300 MG CAP PO SCH ×3 (08:28→21:18)
[2019-09-22] MEDS: Pantoprazole 40 MG VIAL IVP SCH ×2 (08:29→21:20)
[2019-09-22] MEDS: Digoxin 0.125 MG TAB PO SCH (08:29)
[2019-09-22] MEDS: Alogliptin 6.25 MG TAB PO SCH (08:29)
[2019-09-22] MEDS: glipiZIDE 5 MG TAB PO SCH (08:29)
[2019-09-22] MEDS: Clopidogrel Bisulfate 75 MG TAB PO SCH (08:29)
[2019-09-22] MEDS: Folic Acid 1 MG TAB PO SCH (08:29)
--- NOTE | 2019-09-22 08:35 | CON ---
DATE OF CONSULTATION: 09/22/2019 HISTORY OF PRESENT ILLNESS: Ms. Vickers is doing well. No current complaints. No current bleeding. No abdominal pain and normal bowel movement. No chest pain or pressure noted. No significant shortness of breath. PHYSICAL EXAMINATION: VITAL SIGNS: Blood pressure 120/88, pulse 63, temperature 98.2. LUNGS: Clear to auscultation. HEART: Regular rate and rhythm. ABDOMEN: Soft, nontender, nondistended. EXTREMITIES: No edema. PERTINENT LABORATORY DATA: Hemoglobin 9.0, down from 10.4. IMPRESSION: 1. Non-Q-wave myocardial infarction. 2. Gastrointestinal bleed. 3. Atrial fibrillation status post pacer. RECOMMENDATIONS: 1. Aspirin has been discontinued. 2. Continue Plavix and Xarelto. 3. Continue to monitor hemoglobin per GI request. 4. Recent LVEF estimated at 40% to 45%, but was a difficult study. 5. Continue beta-silvana therapy in addition to digoxin and Cardizem in addition to atorvastatin. 6. We will follow peripherally. Dr. Manzano will be on-call this weekend. Please call if questions arise. Job ID: [id number]
[2019-09-22] MEDS: Primidone 50 MG TAB PO SCH ×2 (09:31→21:18)
--- NOTE | 2019-09-22 09:49 | EKG ---
Test Reason : STAT Blood Pressure : / mmHG Vent. Rate : 066 BPM Atrial Rate : 070 BPM P-R Int : 000 ms QRS Dur : 080 ms QT Int : 400 ms P-R-T Axes : 000 056 043 degrees QTc Int : 419 ms Suspect unspecified pacemaker failure Atrial fibrillation with frequent ventricular-paced complexes Nonspecific ST abnormality Abnormal ECG When compared with ECG of 13-SEP-2019 13:29, Previous ECG has undetermined rhythm, needs review Confirmed by MARIAN HARO MD ([id number]) on 09/22/2019 9:48:43 AM Referred By: CEDRIC Confirmed By:MARIAN HARO MD
--- NOTE | 2019-09-22 09:57 | EKG ---
Test Reason : Blood Pressure : / mmHG Vent. Rate : 060 BPM Atrial Rate : 056 BPM P-R Int : 000 ms QRS Dur : 152 ms QT Int : 464 ms P-R-T Axes : 000 -57 069 degrees QTc Int : 464 ms Electronic ventricular pacemaker When compared with ECG of 18-SEP-2019 02:16, (Unconfirmed) Vent. rate has decreased BY 6 BPM Confirmed by TAHIR NOWAK, MARIAN ([id number]) on 09/22/2019 9:57:20 AM Referred By: SUSY ROSADO Confirmed By:MARIAN HARO MD
--- NOTE | 2019-09-22 10:01 | EKG ---
Test Reason : Blood Pressure : / mmHG Vent. Rate : 060 BPM Atrial Rate : 054 BPM P-R Int : 000 ms QRS Dur : 150 ms QT Int : 448 ms P-R-T Axes : 000 -42 076 degrees QTc Int : 448 ms Ventricular-paced rhythm Abnormal ECG When compared with ECG of 18-SEP-2019 12:35, (Unconfirmed) No significant change was found Confirmed by TAHIR NOWAK, MARIAN ([id number]) on 09/22/2019 10:01:24 AM Referred By: DAREN Confirmed By:MARIAN HARO MD
--- NOTE | 2019-09-22 10:09 | EKG ---
Test Reason : Blood Pressure : / mmHG Vent. Rate : 064 BPM Atrial Rate : 250 BPM P-R Int : 000 ms QRS Dur : 152 ms QT Int : 424 ms P-R-T Axes : 000 -50 040 degrees QTc Int : 437 ms Electronic ventricular pacemaker When compared with ECG of 18-SEP-2019 16:42, (Unconfirmed) Vent. rate has increased BY 4 BPM Confirmed by MARIAN HARO MD ([id number]) on 09/22/2019 10:08:41 AM Referred By: ALONZO WhitmanR Confirmed By:MARIAN HARO MD
[2019-09-22] MEDS ORDERED: Polyethylene Glycol 3350 17 GM Packet PO PRN (10:16)
--- NOTE | 2019-09-22 12:53 | PRG ---
DATE OF SERVICE: 09/22/2019 SUBJECTIVE: Ms. Vickers is not having bowel movements in 4 days. She is eating well. Dr. Gonzales is okay with her going home at this point in time. OBJECTIVE: VITAL SIGNS: Temperature is 98.2, pulse 60, blood pressure 141/65. ABDOMEN: Soft and nontender. There is no rebound. There is no guarding. LABORATORY DATA: White count 10.2, hemoglobin is 9, platelet counts 184. BUN and creatinine are 10 and 1.1. ASSESSMENT: 1. Gastrointestinal bleed of unclear etiology with some bleeding noted at the time of esophagogastroduodenoscopy at the ampullary site. There was concern for hemobilia; however, the LFTs and lipase were normal. CAT scan showed no evidence of overt lesions in the liver or pancreas. The patient was transferred to [facility] and had an angiogram, which showed faint blush at the pancreas and liver, although no lesions were confirmed in any of these areas by other imaging as noted above. The radiologist there did embolize a few beads in that area the bleeding. The patient has had no bleeding since that time. 2. Myocardial infarction. 3. Atrial fibrillation, on chronic anticoagulation. She has been restarted on her anticoagulation at the urging of Cardiology. RECOMMENDATIONS: Monitor H and H. I think if her hemoglobin remained stable over the next 24 to 48 hours, she can go home on her anticoagulation and with PPI therapy. She can follow up in my office in a few weeks. Dr. Dixon is covering for the weekend. Job ID: [id number]
[2019-09-22] MEDS: Rivaroxaban 15 MG TAB PO SCH (21:19)
[2019-09-22] MEDS: Atorvastatin Calcium 40 MG TAB PO SCH (21:20)
[2019-09-23 04:49] LABS: #Basophils 0.1 thou/uL (0.0-0.2); #Eosinphils 0.4 thou/uL (0.0-0.7); #Lymphocytes 1.4 thou/uL (1.20-3.40); #Monocytes 0.6 thou/uL (0.11-0.59); #Neutrophils 6.4 thou/uL (1.40-6.50); %Basophils 0.6 % (0.0-1.0); %Eosinophils 4.7 % (0.0-10.0); %Lymphocytes 15.9 % (21.0-51.0); %Monocytes 6.7 % (0.0-10.0); %Neutrophils 72.1 % (42.0-75.0); Hemoglobin 9.2 g/dL (12.0-16.0); Mean Corpuscular HGB CONC 32.5 g/dL (32.0-36.0); Mean Corpuscular Hemoglobin 28.9 pg (27.0-31.0); Mean Platelet Volume 8.2 fL (7.4-10.4); Platelet Count 191 thou/uL (130-400); Red Blood Cell (RBC) Count 3.17 mill/uL (4.20-5.40); White Blood Cell (WBC) Count 8.9 thou/uL (4.8-10.8)
[2019-09-23 05:22] LABS: Anion Gap 12 mmol/L (10-20); BUN (Urea Nitrogen) 13 mg/dL (9.8-20.1); Calc. Creatinine Clearance 61 mL/min (70-130); Calcium 8.7 mg/dL (7.8-10.44); Carbon Dioxide 26 mmol/L (23-31); Chloride 108 mmol/L (98-107); Estimated GFR-MDRD 51; Glucose 118 mg/dL (83-110); Potassium 3.7 mmol/L (3.5-5.1); Sodium 142 mmol/L (136-145)
--- NOTE | 2019-09-23 05:51 | PDOC.FM ---
- Subjective Subjective: Pt is doing well today. She denies chest pain, blood per rectum. She had no questions or concerns. - Objective Vital Signs & Weight: Vital Signs (12 hours) Temp Pulse Resp BP BP Pulse Ox 09/23/19 04:00 97.8 F 60 17 136/62 97 09/22/19 20:00 98.4 F 70 17 149/72 H 98 Weight Admit Weight 95.708 kg Weight 81.284 kg Most Recent Monitor Data Heart Rate from ECG 60 NIBP 145/67 NIBP BP-Mean 93 Respiration from ECG 12 SpO2 98 I&O: 09/21/19 09/22/19 09/23/19 06:59 06:59 06:59 Intake Total 882 920 Output Total 500 1050 Balance 382 -130 Result Diagrams: 09/23/19 03:36 09/23/19 03:36 Phys Exam - Physical Examination Constitutional: NAD HEENT: PERRLA, moist MMs Neck: no nodes, no JVD Respiratory: no wheezing, no rales, clear to auscultation bilateral Cardiovascular: RRR, no significant murmur Gastrointestinal: soft, non-tender, no distention Musculoskeletal: no edema, pulses present Dx/Plan (1) Anemia Code(s): D64.9 - ANEMIA, UNSPECIFIED Status: Acute Qualifiers: Anemia type: unspecified type Qualified Code(s): D64.9 - Anemia, unspecified (2) Atrial fibrillation Code(s): I48.91 - UNSPECIFIED ATRIAL FIBRILLATION Status: Acute Qualifiers: Atrial fibrillation type: longstanding persistent Qualified Code(s): I48.11 - Longstanding persistent atrial fibrillation (3) Upper GI bleed Code(s): K92.2 - GASTROINTESTINAL HEMORRHAGE, UNSPECIFIED Status: Acute (4) Atrial fibrillation with RVR Code(s): I48.91 - UNSPECIFIED ATRIAL FIBRILLATION Status: Acute (5) CKD (chronic kidney disease), stage III Code(s): N18.3 - CHRONIC KIDNEY DISEASE, STAGE 3 (MODERATE) Status: Acute (6) Diabetes Code(s): E11.9 - TYPE 2 DIABETES MELLITUS WITHOUT COMPLICATIONS Status: Acute Qualifiers: Diabetes mellitus type: type 2 Diabetes mellitus moth exterminator insulin use: without moth exterminator use Diabetes mellitus complication status: without complication Qualified Code(s): E11.9 - Type 2 diabetes mellitus without complications (7) HLD (hyperlipidemia) Code(s): E78.5 - HYPERLIPIDEMIA, UNSPECIFIED Status: Acute Qualifiers: Hyperlipidemia type: unspecified Qualified Code(s): E78.5 - Hyperlipidemia , unspecified (8) HTN (hypertension) Code(s): I10 - ESSENTIAL (PRIMARY) HYPERTENSION Status: Acute Qualifiers: Hypertension type: essential hypertension Qualified Code(s): I10 - Essential (primary) hypertension - Plan Plan: Patient is a 74 yo female who presents with weakness is admitted for symptomatic anemia: #Symptomatic Anemia 2/2 Upper GI bleed - Hgb 4.8 on admission. Normal colonoscopy 1 yr ago. Melanotic stool. FOBT +. - patient currently received 5th unit of pRBC on 09/19 - GI consulted; performed EGD on 09/15 revealing healing gastric ulcers, bleeding from ampulla of vater possibly hemobillia vs hemosuccus pancreatitis; recommend keeping H/H above 7/21. - transfer to [facility] on 09/[address] angiography and embolization of vascular anomalies seen at level of pancreatic head and right lobe of the liver -Dr. Golden does not recommend ERCP at this time due to lack of equipment to stop an intraductal bleed. Also recommended considering tagged red cell scan if Hgb drops again - Continue PPI IV BID - Abdominal MRI did not show any apparent pathology to be causing bleeding, did show hepatic cyst, left renal cyst, and small bilateral effusions with no evidence of edema around the pancreas - as of 09/23, patient's Hgb is at 9.0 --> 9.2 - GI, Dr. Holman recommends to continue PPI, monitor H/H, and patient will need outpatient EUS of pancreas for further evaluation. States that patient okay to restart anticoagulation with caution. If restart anticoagulation and antiplatelet therapy then will need to stay an additional 4 days to monitor for signs of rebleed and if this does occur will need to reconsider anticoagluation therapy plan, appreciate recs. - No evidence of bleeding at this time. # Mixed Anemia - Blood loss anemia vs Low Folate - iron supplementation on discharge - folate, b12 supplementation on discharge # DM II - ACHS, mild SS - Will continue to monitor and continue home regimen # Hx of AFib s/p pacemaker - aware, will continue to monitor. - Xarelto initially held for bleeding, restarted on 09/21 - pt is taking diltazem - home dose restarted # CKD stage 3 - aware, will continue to monitor. BUN/Cr at baseline. # HLD - continue home medications # Fluid Overload --> HFrEF - continue lasix - given 1 time IV Lasix [address] Gonzales on 09/21 - ECHO on 09/21: EF 40-45%, unable to assess diastolic function # Constipation - resolved with 2 BMs in past 48 hours # Chest Pain-> non-Q Wave SC # N-STEMI - Cath 09/19 without stent placement, embolized RCA - Troponins: 0.056 -> uptrended throughout day on 09/18 with cardiology notified -> last trop 22.5 at 0400 on 09/19 - CKMB 34.3 > 26.4 - patient moved from medical to telemetry unit on 09/18, moved from telemetry to CCU on 09/19, CCU to telemetry on 09/20 - Consult cardiology, Dr. Gonzales, appreciate recs--continue Metoprolol, Atorvastatin, Digoxin, & Cardizem - Lovenox and other anticoagulation contraindicated initially due to acute GI bleed, Heparin drip from 09/19 to 09/21--cleared by Dr. Holman, GI. Restarted Xarelto & Plavix & d/c home aspirin on 09/21 with continued close monitoring of H/H - Difficult situation due to patient's GI bleed with this admission. - ECHO on 09/21: EF 40-45%, difficult study, unable to assess diastolic function Code: DNR-DNI VTE: SCDs GIppx: protonix IV Dispo: Stable, admitted to inpatient on telemetry. Await and appreciate further GI and Cardiology recs. Will trend H/H and monitor for signs of bleeding or hemodynamic compromise. Plan to continue Plavix & Xarelto, will d/c if sign of bleed. Anticipate discharge in >48hrs.
[2019-09-23] MEDS: glipiZIDE 5 MG TAB PO SCH (08:31)
[2019-09-23] MEDS: Potassium Chloride 20 MEQ TAB PO SCH ×2 (08:31→16:06)
[2019-09-23] MEDS: Digoxin 0.125 MG TAB PO SCH (08:32)
[2019-09-23] MEDS: Clopidogrel Bisulfate 75 MG TAB PO SCH (08:32)
[2019-09-23] MEDS: Alogliptin 6.25 MG TAB PO SCH (08:32)
[2019-09-23] MEDS: Pantoprazole 40 MG VIAL IVP SCH (08:33)
[2019-09-23] MEDS: Folic Acid 1 MG TAB PO SCH (08:33)
[2019-09-23] MEDS: Primidone 50 MG TAB PO SCH ×2 (08:33→23:28)
[2019-09-23] MEDS: Gabapentin 300 MG CAP PO SCH ×3 (08:33→21:19)
[2019-09-23 11:22] LABS: Hemoglobin 10.6 g/dL (12.0-16.0); Platelet Count 226 thou/uL (130-400)
[2019-09-23 19:13] LABS: Hemoglobin 10.4 g/dL (12.0-16.0); Platelet Count 232 thou/uL (130-400)
[2019-09-23] MEDS: Atorvastatin Calcium 40 MG TAB PO SCH (21:19)
[2019-09-23] MEDS: Rivaroxaban 15 MG TAB PO SCH (21:19)
[2019-09-24 05:47] LABS: #Basophils 0.1 thou/uL (0.0-0.2); #Eosinphils 0.5 thou/uL (0.0-0.7); #Lymphocytes 1.8 thou/uL (1.20-3.40); #Monocytes 0.6 thou/uL (0.11-0.59); #Neutrophils 6.9 thou/uL (1.40-6.50); %Basophils 0.7 % (0.0-1.0); %Eosinophils 5.1 % (0.0-10.0); %Lymphocytes 17.9 % (21.0-51.0); %Monocytes 6.1 % (0.0-10.0); %Neutrophils 70.3 % (42.0-75.0); Mean Corpuscular Hemoglobin 27.4 pg (27.0-31.0); Mean Corpuscular Volume 88.5 fL (78.0-98.0); Mean Platelet Volume 8.4 fL (7.4-10.4); Platelet Count 219 thou/uL (130-400); RBC Distribution Width 17.2 % (11.5-14.5); Red Blood Cell (RBC) Count 3.27 mill/uL (4.20-5.40); White Blood Cell (WBC) Count 9.8 thou/uL (4.8-10.8)
--- NOTE | 2019-09-24 06:01 | PDOC.FM ---
- Subjective Subjective: Pt is doing well today. She has no complaints. She states she feels good and ready to home. Denies evidence of blood in stool. Denies chest pain. - Objective Vital Signs & Weight: Vital Signs (12 hours) Temp Pulse Resp BP BP Pulse Ox 09/24/19 04:00 97.5 F L 60 14 124/59 L 96 09/23/19 20:00 98.3 F 61 18 155/70 H 94 L Weight Admit Weight 95.708 kg Weight 81.919 kg Most Recent Monitor Data Heart Rate from ECG 60 NIBP 145/67 NIBP BP-Mean 93 Respiration from ECG 12 SpO2 98 I&O: 09/22/19 09/23/19 09/24/19 06:59 06:59 06:59 Intake Total 920 720 Output Total 1050 Balance -130 720 Result Diagrams: 09/24/19 04:23 09/24/19 04:23 Phys Exam - Physical Examination Constitutional: NAD < 2 second cap refill HEENT: PERRLA, moist MMs Respiratory: no wheezing, no rales, clear to auscultation bilateral Cardiovascular: RRR, no significant murmur Gastrointestinal: soft, non-tender, no distention Musculoskeletal: no edema, pulses present Dx/Plan (1) Anemia Code(s): D64.9 - ANEMIA, UNSPECIFIED Status: Acute Qualifiers: Anemia type: unspecified type Qualified Code(s): D64.9 - Anemia, unspecified (2) Atrial fibrillation Code(s): I48.91 - UNSPECIFIED ATRIAL FIBRILLATION Status: Acute Qualifiers: Atrial fibrillation type: longstanding persistent Qualified Code(s): I48.11 - Longstanding persistent atrial fibrillation (3) Upper GI bleed Code(s): K92.2 - GASTROINTESTINAL HEMORRHAGE, UNSPECIFIED Status: Acute (4) Atrial fibrillation with RVR Code(s): I48.91 - UNSPECIFIED ATRIAL FIBRILLATION Status: Acute (5) CKD (chronic kidney disease), stage III Code(s): N18.3 - CHRONIC KIDNEY DISEASE, STAGE 3 (MODERATE) Status: Acute (6) Diabetes Code(s): E11.9 - TYPE 2 DIABETES MELLITUS WITHOUT COMPLICATIONS Status: Acute Qualifiers: Diabetes mellitus type: type 2 Diabetes mellitus senior living insulin use: without senior living use Diabetes mellitus complication status: without complication Qualified Code(s): E11.9 - Type 2 diabetes mellitus without complications (7) HLD (hyperlipidemia) Code(s): E78.5 - HYPERLIPIDEMIA, UNSPECIFIED Status: Acute Qualifiers: Hyperlipidemia type: unspecified Qualified Code(s): E78.5 - Hyperlipidemia , unspecified (8) HTN (hypertension) Code(s): I10 - ESSENTIAL (PRIMARY) HYPERTENSION Status: Acute Qualifiers: Hypertension type: essential hypertension Qualified Code(s): I10 - Essential (primary) hypertension - Plan Plan: Patient is a 74 yo female who presents with weakness is admitted for symptomatic anemia: #Symptomatic Anemia 2/2 Upper GI bleed - Hgb 4.8 on admission. Normal colonoscopy 1 yr ago. Melanotic stool. FOBT +. - patient currently received 5th unit of pRBC on 09/19 - GI consulted; performed EGD on 09/15 revealing healing gastric ulcers, bleeding from ampulla of vater possibly hemobillia vs hemosuccus pancreatitis; recommend keeping H/H above 7/21. - transfer to [facility] on 09/[address] angiography and embolization of vascular anomalies seen at level of pancreatic head and right lobe of the liver -Dr. Golden does not recommend ERCP at this time due to lack of equipment to stop an intraductal bleed. Also recommended considering tagged red cell scan if Hgb drops again - Continue PPI IV BID - Abdominal MRI did not show any apparent pathology to be causing bleeding, did show hepatic cyst, left renal cyst, and small bilateral effusions with no evidence of edema around the pancreas - as of 09/23, patient's Hgb is at 9.0 --> 9.2 --> 9.0 - GI, Dr. Holman recommends to continue PPI, monitor H/H, and patient will need outpatient EUS of pancreas for further evaluation. States that patient okay to restart anticoagulation with caution. GI recommended 24-48 hours inpt after restarting medication. At the 48 hr vinicius pt has stable Hgb. Will discharge today. - No evidence of bleeding at this time. # Mixed Anemia - Blood loss anemia vs Low Folate - iron supplementation on discharge - folate, b12 supplementation on discharge # DM II - ACHS, mild SS - Will continue to monitor and continue home regimen # Hx of AFib s/p pacemaker - aware, will continue to monitor. - Xarelto initially held for bleeding, restarted on 09/21 - pt is taking diltazem - home dose restarted # CKD stage 3 - aware, will continue to monitor. BUN/Cr at baseline. # HLD - continue home medications # Fluid Overload --> HFrEF - continue lasix - given 1 time IV Lasix [address] Gonzales on 09/21 - ECHO on 09/21: EF 40-45%, unable to assess diastolic function # Constipation - resolved with 2 BMs in past 48 hours # Chest Pain-> non-Q Wave DC # N-STEMI - Cath 09/19 without stent placement, embolized RCA - Troponins: 0.056 -> uptrended throughout day on 09/18 with cardiology notified -> last trop 22.5 at 0400 on 09/19 - CKMB 34.3 > 26.4 - patient moved from medical to telemetry unit on 09/18, moved from telemetry to CCU on 09/19, CCU to telemetry on 09/20 - Consult cardiology, Dr. Gonazles, appreciate recs--continue Metoprolol, Atorvastatin, Digoxin, & Cardizem - Lovenox and other anticoagulation contraindicated initially due to acute GI bleed, Heparin drip from 09/19 to 09/21--cleared by Dr. Holman, GI. Restarted Xarelto & Plavix & d/c home aspirin on 09/21 with continued close monitoring of H/H - Difficult situation due to patient's GI bleed with this admission. - ECHO on 09/21: EF 40-45%, difficult study, unable to assess diastolic function Code: DNR-DNI VTE: SCDs GIppx: protonix IV Dispo: H/H stable, discharge today with close follow up.
[2019-09-24 06:05] LABS: Anion Gap 12 mmol/L (10-20); BUN (Urea Nitrogen) 15 mg/dL (9.8-20.1); Calc. Creatinine Clearance 71 mL/min (70-130); Calcium 8.7 mg/dL (7.8-10.44); Carbon Dioxide 23 mmol/L (23-31); Chloride 110 mmol/L (98-107); Estimated GFR-MDRD 61; Glucose 117 mg/dL (83-110); Sodium 141 mmol/L (136-145)
[2019-09-24 07:25] VITALS: TEMP 97.9
[2019-09-24] MEDS: glipiZIDE 5 MG TAB PO SCH (09:06)
[2019-09-24] MEDS: Potassium Chloride 20 MEQ TAB PO SCH (09:06)
[2019-09-24] MEDS: Alogliptin 6.25 MG TAB PO SCH (09:06)
[2019-09-24] MEDS: Clopidogrel Bisulfate 75 MG TAB PO SCH (09:07)
[2019-09-24] MEDS: Digoxin 0.125 MG TAB PO SCH (09:07)
[2019-09-24] MEDS: Folic Acid 1 MG TAB PO SCH (09:07)
[2019-09-24] MEDS: Gabapentin 300 MG CAP PO SCH (09:07)
[2019-09-24] MEDS: Primidone 50 MG TAB PO SCH (09:08)
[2019-09-24 11:03] VITALS: BP 135/65
--- NOTE | 2019-09-25 10:24 | PRG ---
DATE OF SERVICE: 09/24/2019 Please see note from Dr. Jorge, for which I agree. The patient was seen, evaluated, discussed, and examined with the residents by bedside. The patient's H and H are stable now even a couple of days on anticoagulants and antiplatelet therapy. It sounds like the GI bleed has stopped. From a cardiac standpoint, she is stable without any shortness of breath or chest pain. It sounds like she has recovered from the SC and from the bleeding ulcers and bleeding from the ampulla of Vater. So, plan is to send her home with a short followup to recheck her hemoglobin and we will keep her on current cardiac medications, proton pump inhibitor, etc. Job ID: [id number]
--- NOTE | 2019-09-25 12:51 | PRG ---
DATE OF SERVICE: 09/23/2019 ADDENDUM: Please see the note from Dr. Jorge for which I agree. The patient was seen, evaluated, and discussed with the residents by bedside. This patient is here for a GI bleed that she had apparently go to [facility] to get embolization procedure. Was bleeding bad from arteries apparently in the ampulla of Vater and now getting at least 5 units of packed red blood cells and that has been stable. At heart catheterization, she had a [id number] DE for which she was heart cathed and now on blood thinners for that as well as atrial fibrillation. I am just watching her to make sure she does not rebleed. Now that we will restart her blood thinners. Monitor H and H. Sounds like it is stable and cardiac-ramirez, things have been stable now for few days, but we will probably watch her over the weekend. Job ID: [id number]
--- NOTE | 2019-09-26 05:32 | PQF ---
TATIANA DOUGHERTY RUSSEL B MD [id number] -[id number] CLINICAL DOCUMENTATION CLARIFICATION FORM: POST DISCHARGE Addendum to original discharge summary date: ____ Late entry note date: __ DATE: 09/26/19 ATTN: Oscar Mosley Please exercise your independent, professional judgment in responding to the clarification form. Clinical indicators are provided on the bottom of this form for your review Can you please further specify the etiology of GI bleeding based on the clinical indicators below? Please check appropriate box(s): [ ] GI bleeding due to hemobilia [ ] GI bleeding due to hemosuccus pancreaticus [ ] GI bleeding due to healing gastric ulcer [ ] GI bleeding of unknown etiology [ ] Other diagnosis please specify [ ] Unable to determine In addition, please specify: Present on Admission (POA): [ ] Yes [ ] No [ ] Unable to determine For continuity of documentation, please document condition throughout progress notes and discharge summary. Thank You. CLINICAL INDICATORS - SIGNS / SYMPTOMS / LABS H and P pg.5- symptomatic anemia 2/2 upper GI bleed Consult Dr. Lin 09/13 pg.1- Reports black stools one or twice per day over the last couple of months OP Report 09/15 pg.2- Recent gastric ulcer now in a state of healing status post biopsy OP Report 09/15 pg.2-Mild oozing of blood from the ampulla of batter itself with uncertain etiology OP Report 09/15 pg.2- Could be indicative of hemobilia versus hemosuccus pancreaticus PN 09/[address] Golden- ampulla of Vater is more likely suspect, however CT scan did not reveal any abnormalities within the pancreas of the liver PN 09/18 Dr. Holman pg.1- Reported hemobilia based on endoscopic findings PN 09/24 pg.1- Bleeding ulcer and bleeding from the ampulla of Vater Hospitalist PN Dr. Jorge 09/24 pg.3- EGD on 09/15 revealing healing gastric ulcer, bleeding from ampulla of Vater RISK FACTORS DM II- H and P pg.5 Atrial fibrillation-GI Consult- Dr. Lin pg.1 Anemia of acute and chronic blood loss- Consult Dr. Lin pg.2 On chronic anticoagulation- GI Consult- Dr. Lin pg.1 TREATMENTS: Transfusing 2 units of PRBC- H and P pg.5 GI Consult- Riley Dean 09/13 H and H monitoring- Laboratory 09/13 EGD with Biopsy- OP report -09/15 CT abdomen 09/15 IV fluids- [facility] [place] 09/13 (This form is maintained as a part of the permanent medical record) 2014 [employer]. All Rights Reserved Bry [email or web address] [not provided] MTDD
== END 2019-09-24 11:55 | disposition home or self-care (01) | DRG 377 ==
LOC: ERS 12:08 → T4-B 14:47 → 2NO 09-18 18:24 → CCU 09-19 11:04 → 2NO 09-20 09:39
PROVIDERS: ADMIT Family Medicine; ATTEND Family Medicine
PROC: 30233N1 Transfusion of Nonautologous Red Blood Cells into Peripheral Vein, Percutaneous Approach (ICD-10-PCS; 2019-09-13)
PROC: 0DB78ZX Excision of Stomach, Pylorus, Via Natural or Artificial Opening Endoscopic, Diagnostic (ICD-10-PCS; 2019-09-15)
PROC: 30233L1 Transfusion of Nonautologous Fresh Plasma into Peripheral Vein, Percutaneous Approach (ICD-10-PCS; 2019-09-16)
PROC: 30233K1 Transfusion of Nonautologous Frozen Plasma into Peripheral Vein, Percutaneous Approach (ICD-10-PCS; 2019-09-16)
PROC: 4A023N7 Measurement of Cardiac Sampling and Pressure, Left Heart, Percutaneous Approach (ICD-10-PCS; principal; 2019-09-19)
PROC: B2111ZZ Fluoroscopy of Multiple Coronary Arteries using Low Osmolar Contrast (ICD-10-PCS; 2019-09-19)
PROC: B2151ZZ Fluoroscopy of Left Heart using Low Osmolar Contrast (ICD-10-PCS; 2019-09-19)
DX: K92.2 Gastrointestinal hemorrhage, unspecified (principal); I21.4 Non-ST elevation (NSTEMI) myocardial infarction; D62 Acute posthemorrhagic anemia; I48.20 Chronic atrial fibrillation, unspecified; K83.8 Other specified diseases of biliary tract; K25.4 Chronic or unspecified gastric ulcer with hemorrhage; Z66 Do not resuscitate; F41.9 Anxiety disorder, unspecified; F32.9 Major depressive disorder, single episode, unspecified; E66.01 Morbid (severe) obesity due to excess calories; N18.3 Chronic kidney disease, stage 3 (moderate); E11.22 Type 2 diabetes mellitus with diabetic chronic kidney disease; D50.9 Iron deficiency anemia, unspecified; E87.70 Fluid overload, unspecified; K25.9 Gastric ulcer, unspecified as acute or chronic, without hemorrhage or perforation; I49.5 Sick sinus syndrome; I48.0 Paroxysmal atrial fibrillation; K76.89 Other specified diseases of liver; N28.1 Cyst of kidney, acquired; I12.9 Hypertensive chronic kidney disease with stage 1 through stage 4 chronic kidney disease, or unspecified chronic kidney disease; E78.5 Hyperlipidemia, unspecified; K59.00 Constipation, unspecified; Z68.38 Body mass index [BMI] 38.0-38.9, adult; Z88.1 Allergy status to other antibiotic agents; Z79.82 Long term (current) use of aspirin; Z79.899 Other long term (current) drug therapy; Z79.84 Long term (current) use of oral hypoglycemic drugs; Z85.3 Personal history of malignant neoplasm of breast; Z95.0 Presence of cardiac pacemaker
CPT/HCPCS: 36415; 36416; 36430; 74177; 74183; 76942; 80048; 80053; 80076; 81003; 82274; 82553; 82607; 82728; 82746; 82747; 83540; 83550; 83605; 83690; 84484; 85025; 85060; 85610; 85730; 86850; 86900; 86901; 88305; 88312; 93005; 93010; 93306; 93458; 93798; 96365; 96366; 99152; A9577; C1769; C9113; J1644; J1940; J2001; J2250; J2405; J2704; J3010; J3490; P9016; P9059; Q0162; Q9967

== ENCOUNTER 2019-12-15 09:23 | Outpatient (CLI) | payer MEDICARE ==
--- NOTE | 2019-12-15 09:56 | BD ---
EXAM: Bone densitometry using DEXA HISTORY: 74 yo female. Screening for postmenopausal osteoporosis FINDINGS: L1--bone mineral density 1.651 g/sq cm; T score 6.0 ; Z score 8.1 L2--bone mineral density 1.927 g/sq cm; T score 8.2 ; Z score 10.5 L3--bone mineral density 1.885 g/sq cm; T score 7.3 ; Z score 9.7 L4--bone mineral density 1.760 g/sq cm; T score 6.4 ; Z score 8.8 Total L1-L4--bone mineral density 1.805 g/sq cm; T score 6.9 ; Z score 9.2 Left femoral neck--bone mineral density1.104; T score 2.3 ; Z score 4.3 Total proximal left femur--bone mineral density 1.358; T score 3.4 ; Z score 5.1 IMPRESSION: Normal BMD
== END 2019-12-15 09:24 | disposition home or self-care (01) ==
LOC: BICMAMMO 09:23
PROVIDERS: ATTEND Family Medicine
DX: Z13.820 Encounter for screening for osteoporosis (principal); Z78.0 Asymptomatic menopausal state
CPT/HCPCS: 77080

== ENCOUNTER 2019-12-21 11:50 | Observation (INO) | payer MEDICARE ==
[2019-12-21 12:29] LABS: #Eosinphils 0.2 thou/uL (0.0-0.7); #Lymphocytes 1.8 thou/uL (1.20-3.40); #Monocytes 0.6 thou/uL (0.11-0.59); #Neutrophils 7.3 thou/uL (1.40-6.50); %Basophils 0.5 % (0.0-1.0); %Eosinophils 2.3 % (0.0-10.0); %Monocytes 6.1 % (0.0-10.0); %Neutrophils 73.2 % (42.0-75.0); Hemoglobin 14.1 g/dL (12.0-16.0); Mean Corpuscular HGB CONC 34.2 g/dL (32.0-36.0); Mean Corpuscular Hemoglobin 33.2 pg (27.0-31.0); Mean Corpuscular Volume 97.2 fL (78.0-98.0); Mean Platelet Volume 7.7 fL (7.4-10.4); Platelet Count 196 thou/uL (130-400); RBC Distribution Width 14.5 % (11.5-14.5); Red Blood Cell (RBC) Count 4.24 mill/uL (4.20-5.40)
[2019-12-21 12:54] LABS: ALT (SGPT) 8 U/L (8-55); AST (SGOT) 12 U/L (5-34); Albumin 3.9 g/dL (3.4-4.8); Alkaline Phosphatase 97 U/L (40-110); Anion Gap 14 mmol/L (10-20); BUN (Urea Nitrogen) 14 mg/dL (9.8-20.1); Bilirubin, Total 0.5 mg/dL (0.2-1.2); CK (CPK) 49 U/L (29-168); Calc. Creatinine Clearance 0 mL/min (70-130); Calcium 9.1 mg/dL (7.8-10.44); Carbon Dioxide 24 mmol/L (23-31); Chloride 108 mmol/L (98-107); Estimated GFR-MDRD 30; Globulin 3.3 g/dL (2.4-3.5); Glucose 185 mg/dL (83-110); Lipase 61 U/L (8-78); Potassium 3.9 mmol/L (3.5-5.1); Protein, Total 7.2 g/dL (6.0-8.3); Sodium 142 mmol/L (136-145)
[2019-12-21 13:13] LABS: CKMB 1.2 ng/mL (0-6.6)
--- NOTE | 2019-12-21 13:40 | RAD ---
RADIOGRAPH CHEST 1 VIEW: DATE: 12/21/2019. TIME: 11:58 a.m. HISTORY: A 74-year-old female with chest pain. COMPARISON: 01/03/2019. FINDINGS: There is no air space density, pulmonary edema, or pneumothorax. The lateral costophrenic angles are sharp. There is a single-lead left subclavian pacemaker. There is a cluster of surgical clips over lying the left lateral lower lung zone. No interval change overall. IMPRESSION: No acute pulmonary findings. jn [] POS: TPC
[2019-12-21] MEDS ORDERED: Ondansetron PF 4 MG/2 ML Vial IVP PRN (15:21)
[2019-12-21] MEDS ORDERED: Ondansetron ODT 4 MG TAB SL PRN (15:21)
[2019-12-21 15:22] VITALS: BMI 34.3
[2019-12-21] MEDS ORDERED: Clopidogrel Bisulfate 75 MG TAB PO SCH (16:00)
[2019-12-21] MEDS ORDERED: Acetaminophen 325 MG TAB PO PRN (16:04)
--- NOTE | 2019-12-21 16:07 | PDOC.FPRHP ---
- History of Present Illness Chief Complaint: Palpitations History of Present Illness: 74yo F w/ pmhx of CAD and atrial fib presented to ED w/ complaint of palpitations. Pt states this had been going on intermittently for 2 days and is associated with some substernal chest pressure. Pt states if feels similar to her sx she experienced when she had an NSTEMI in August,. Pt had cath at that time that showed PDA embolism and no stents were placed. Pt follows with Dr. Gonzales. Pt had cardiac rehab session today which she was able to complete without difficulty. On exam pt was without any continued chest pain. Denies any SOB, N/V/D, or recent illness. ED Course: 500 NS bolus. Trop 0.037. BNP 226. Negative D-dimer. CXR negative for acute findings. - Allergies/Adverse Reactions Allergies Allergy/AdvReac Type Severity Reaction Status Date / Time ciprofloxacin [From Cipro] Allergy Verified 12/21/19 15:33 levofloxacin Allergy Verified 12/21/19 15:33 - Home Medications Medication Instructions Recorded Confirmed Type Furosemide 80 mg PO QAM 06/18/17 12/21/19 History Gabapentin 600 mg PO TID 06/18/17 12/21/19 History Potassium Chloride [K-Dur] 20 meq PO BID-WM #60 tab 06/20/17 12/21/19 Rx Atorvastatin Calcium 40 mg PO HS 07/03/18 12/21/19 History Losartan [Cozaar] 25 mg PO QAM 07/03/18 12/21/19 History Digoxin [Lanoxin] 0.125 mg PO QAM 09/13/19 12/21/19 History Diltiazem HCl [Cardizem CD] 1 cap PO BID 09/13/19 12/21/19 History Metoprolol Succinate [Toprol XL] 100 mg PO BID 09/13/19 12/21/19 History Sertraline HCl [Zoloft] 50 mg PO QAM 09/13/19 12/21/19 History glipiZIDE [Glipizide] 5 mg PO BID 09/13/19 12/21/19 History sitaGLIPtin Phosphate [Januvia] 50 mg PO QAM 09/13/19 12/21/19 History Clopidogrel Bisulfate [Plavix] 75 mg PO DAILY #30 tab 09/24/19 12/21/19 Rx Ferrous Sulfate 325 mg PO BID #60 tablet 09/24/19 12/21/19 Rx Folic Acid [Folvite] 1 mg PO DAILY #30 tab 09/24/19 12/21/19 Rx Albuterol Sulfate [Ventolin HFA] 2 puff INH Q6HR PRN 12/21/19 12/21/19 History Apixaban [Eliquis] 5 mg PO BID 12/21/19 12/21/19 History Methimazole 5 mg PO HS 12/21/19 12/21/19 History Pantoprazole [Protonix] 40 mg PO QAM 12/21/19 12/21/19 History Pnv No.95/Ferrous Fum/Folic AC 1 tab PO DAILY 12/21/19 12/21/19 History [ Caplet] Topiramate 25 mg PO BID 12/21/19 12/21/19 History - History PMHx: a fib, DM II, HTN, breast cancer (L), renal insufficiency, NSTEMI, anxiety /depression PSHx: csection, pace maker for a fib FHx: none Social: denies smoking, alcohol or drug use - Review of Systems General: denies: fever/chills, weight/appetite/sleep changes Eyes: denies: vision changes, other ENT: denies: nasal congestion, rhinorrhea Respiratory: denies: cough, shortness of breath Cardiovascular: reports: chest pain (pressure), palpitation. denies: edema, orthopnea Gastrointestinal: denies: nausea, vomiting, diarrhea Genitourinary: denies: incontinence, dysuria Skin: denies: rashes, lesions Musculoskeletal: denies: pain, swelling Neurological: denies: numbness, weakness Psychological: reports: anxiety, depression - Vital signs BP: 109/56, Pulse: 55, Resp: 18, Temp: 97.8 (Oral), Pain: 0, O2 sat: 96 on ( Room Air), Wt: 90kg - Physical Exam Constitutional: NAD, awake, alert and oriented, well developed HEENT: normocephalic and atraumatic, EOMI, grossly normal vision, grossly normal hearing, MMM Neck: supple, FROM, no JVD Chest: no-tender to palpation, no lesions Heart: normal S1/S2, pulses present, no edema -Heart: irregularly irregular Lungs: CTAB, no respiratory distress, good air movement Abdomen: soft, non-tender, bowel sounds present Musculoskeletal: normal structure, normal tone, ROM grossly normal Neurological: no focal deficit Skin: no rash/lesions, capillary refill <2 seconds Heme/Lymphatic: no unusual bruising or bleeding Psychiatric: normal mood and affect, good judgment and insight, intact recent and remote memory FMR H&P: Results - Labs Result Diagrams: 12/21/19 12:15 12/22/19 04:34 Lab results: WBC 10.0 thou/uL (4.8-10.8) 12/21/19 12:15 Hgb 14.1 g/dL (12.0-16.0) 12/21/19 12:15 Hct 41.2 % (36.0-47.0) 12/21/19 12:15 MCV 97.2 fL (78.0-98.0) 12/21/19 12:15 Plt Count 196 thou/uL (130-400) 12/21/19 12:15 Neutrophils % 73.2 % (42.0-75.0) 12/21/19 12:15 Sodium 142 mmol/L (136-145) 12/21/19 12:15 Potassium 3.9 mmol/L (3.5-5.1) 12/21/19 12:15 Chloride 108 mmol/L (98-107) H 12/21/19 12:15 Carbon Dioxide 24 mmol/L (23-31) 12/21/19 12:15 BUN 14 mg/dL (9.8-20.1) 12/21/19 12:15 Creatinine 1.68 mg/dL (0.6-1.1) H 12/21/19 12:15 Glucose 185 mg/dL (83-110) H 12/21/19 12:15 Calcium 9.1 mg/dL (7.8-10.44) 12/21/19 12:15 Total Bilirubin 0.5 mg/dL (0.2-1.2) 12/21/19 12:15 AST 12 U/L (5-34) 12/21/19 12:15 ALT 8 U/L (8-55) 12/21/19 12:15 Alkaline Phosphatase 97 U/L (40-110) 12/21/19 12:15 Creatine Kinase 49 U/L (29-168) 12/21/19 12:15 CK-MB (CK-2) 1.2 ng/mL (0-6.6) 12/21/19 12:15 B-Natriuretic Peptide 226.3 pg/mL (0-100) H 12/21/19 12:15 Serum Total Protein 7.2 g/dL (6.0-8.3) 12/21/19 12:15 Albumin 3.9 g/dL (3.4-4.8) 12/21/19 12:15 Lipase 61 U/L (8-78) 12/21/19 12:15 - EKG Interpretation EK lead EKG shows, Rate (beats per minute): 63, ventricular paced rhythm, Clinical impression:, non-specific EKG. - Radiology Interpretation Chest x-ray Status: report reviewed by me (No acute cardiopulmonary findings) FMR H&P: A/P - Problem List (1) CAD (coronary artery disease) Current Visit: Yes Status: Acute Code(s): I25.10 - ATHSCL HEART DISEASE OF [place] CORONARY ARTERY W/O ANG PCTRS (2) Hx of non-ST elevation myocardial infarction (NSTEMI) Current Visit: Yes Status: Acute Code(s): I25.2 - OLD MYOCARDIAL INFARCTION (3) Atrial fibrillation Current Visit: No Status: Acute Code(s): I48.91 - UNSPECIFIED ATRIAL FIBRILLATION Qualifiers: Atrial fibrillation type: longstanding persistent Qualified Code(s): I48.11 - Longstanding persistent atrial fibrillation (4) Diabetes Current Visit: No Status: Acute Code(s): E11.9 - TYPE 2 DIABETES MELLITUS WITHOUT COMPLICATIONS Qualifiers: Diabetes mellitus type: type 2 Diabetes mellitus long-term insulin use: without long-term use Diabetes mellitus complication status: without complication Qualified Code(s): E11.9 - Type 2 diabetes mellitus without complications (5) HLD (hyperlipidemia) Current Visit: No Status: Acute Code(s): E78.5 - HYPERLIPIDEMIA, UNSPECIFIED Qualifiers: Hyperlipidemia type: unspecified Qualified Code(s): E78.5 - Hyperlipidemia , unspecified (6) HTN (hypertension) Current Visit: No Status: Acute Code(s): I10 - ESSENTIAL (PRIMARY) HYPERTENSION Qualifiers: Hypertension type: essential hypertension Qualified Code(s): I10 - Essential (primary) hypertension - Plan Atypical Chest Pain - No acute EKG changes - NSTEMI in 09/16 - cath showing PDA occlusion, no stents - Will trend troponins - Plan to consult cards in AM if troponins remain indeterminate and downtrending CAD - Continue home regimen FRANK - IVF - recheck BMP A-fib - Currently V-paced - continue home meds - Continuous tele monitoring DM - accuchecks - Continue home regimen IVF: LR @ 120 VTE: Eliquis Code: Full Dispo: Admit to Tele Obs for ACS r/o. ELOS <48hr. FMR H&P: Upper Level - Plan Date/Time: 12/21/19 9517 I, Nestor López MD, have evaluated this patient and agree with findings/ plan as outlined by program management intern resident. Pertinent changes/additions are listed here. 1. Heart Palpitations with atypical chest pain - Not seen on EKG or monitoring - Patient has history of distal PDA occlusion with appropriate collaterals from LAD from heart catheterization in August 2019 - Trend troponins - Consider stress testing - Consult Cardiology in AM, primary product examiner Dr. Gonzales 2. CAD - Continue home regimen 3. FRANK - IVF - recheck BMP 4. A-fib - Currently V-paced - continue home meds - Continuous tele monitoring 5. DM - accuchecks - Continue home regimen All other chronic conditions reviewed and medication to be restarted as appropriate. PCP: GALI Smith CODE STATUS: FULL CODE Disposition: Stable, will admit to Telemetry for further evaluation and management. Addendum - Attending - Attending Attestation Date/Time: 12/22/19 5631 I personally evaluated the patient and discussed the management with Dr. Reed on the afternoon of 12/21/19. I agree with the History, Examination, Assessment and Plan documented above with any addition or exceptions noted below.
[2019-12-21] MEDS ORDERED: Nitroglycerin 0.4 MG TAB (25 Tab Bottle) SL PRN (16:54)
[2019-12-21] MEDS ORDERED: Dextrose 5% in Water 1,000 ML IV PRN (17:02)
[2019-12-21] MEDS ORDERED: Dextrose 50% Abboject 50 ML SYRINGE SLOW IVP PRN (17:02)
[2019-12-21] MEDS ORDERED: PROVENTIL INHALER 6.7 G (200 INHALATIONS) INH PRN (19:19)
[2019-12-21 19:20] LABS: Troponin I 0.034 ng/mL (< 0.028)
[2019-12-21] MEDS: Lactated Ringer's 1,000 ML IV SCH (20:43)
[2019-12-21] MEDS: Gabapentin 300 MG CAP PO SCH (20:43)
[2019-12-21] MEDS: Topiramate 25 MG TAB PO SCH (20:43)
[2019-12-21] MEDS: Apixaban 5 MG TAB PO SCH (20:44)
[2019-12-21] MEDS: Ferrous Sulfate 325 MG TAB PO SCH (20:44)
[2019-12-21] MEDS ORDERED: Atorvastatin Calcium 40 MG TAB PO SCH (21:00)
[2019-12-21] MEDS ORDERED: Losartan 25 MG TAB PO SCH (21:00)
[2019-12-21] MEDS: Furosemide 40 MG TAB PO SCH (22:07)
[2019-12-22] MEDS: Lactated Ringer's 1,000 ML IV SCH ×2 (05:06→14:13)
[2019-12-22 05:14] LABS: Anion Gap 13 mmol/L (10-20); BUN (Urea Nitrogen) 13 mg/dL (9.8-20.1); Calc. Creatinine Clearance 51 mL/min (70-130); Calcium 8.4 mg/dL (7.8-10.44); Carbon Dioxide 25 mmol/L (23-31); Chloride 109 mmol/L (98-107); Estimated GFR-MDRD 37; Glucose 144 mg/dL (83-110); Potassium 3.3 mmol/L (3.5-5.1); Sodium 144 mmol/L (136-145)
--- NOTE | 2019-12-22 05:40 | PDOC.FM ---
- Subjective Subjective: Pt denies any events overnight. Notes continued intermittent palpitations and substernal chest pressure. She denies any N/V, shortness of breath or diaphoresis. - Objective Vital Signs & Weight: Vital Signs (12 hours) Temp Pulse Resp BP BP Pulse Ox 12/22/19 04:35 98.3 F 63 18 123/56 L 97 12/21/19 19:11 98.5 F 68 16 109/55 L 100 Weight Weight 90.718 kg I&O: 12/20/19 12/21/19 12/22/19 06:59 06:59 06:59 Intake Total 740 Output Total 150 Balance 590 Result Diagrams: 12/21/19 12:15 12/22/19 04:34 Phys Exam - Physical Examination Constitutional: NAD HEENT: moist MMs, sclera anicteric Neck: full ROM Respiratory: no wheezing, clear to auscultation bilateral Cardiovascular: RRR, no significant murmur Gastrointestinal: soft, non-tender Musculoskeletal: no edema, pulses present Neurological: non-focal, moves all 4 limbs Psychiatric: normal affect, A&O x 3 Skin: no rash, cap refill <2 seconds Dx/Plan (1) CAD (coronary artery disease) Code(s): I25.10 - ATHSCL HEART DISEASE OF [place] CORONARY ARTERY W/O ANG PCTRS Status: Acute (2) Hx of non-ST elevation myocardial infarction (NSTEMI) Code(s): I25.2 - OLD MYOCARDIAL INFARCTION Status: Acute (3) Atrial fibrillation Code(s): I48.91 - UNSPECIFIED ATRIAL FIBRILLATION Status: Acute Qualifiers: Atrial fibrillation type: longstanding persistent Qualified Code(s): I48.11 - Longstanding persistent atrial fibrillation (4) Diabetes Code(s): E11.9 - TYPE 2 DIABETES MELLITUS WITHOUT COMPLICATIONS Status: Acute Qualifiers: Diabetes mellitus type: type 2 Diabetes mellitus long term care social worker insulin use: without long term care social worker use Diabetes mellitus complication status: without complication Qualified Code(s): E11.9 - Type 2 diabetes mellitus without complications (5) HLD (hyperlipidemia) Code(s): E78.5 - HYPERLIPIDEMIA, UNSPECIFIED Status: Acute Qualifiers: Hyperlipidemia type: unspecified Qualified Code(s): E78.5 - Hyperlipidemia , unspecified (6) HTN (hypertension) Code(s): I10 - ESSENTIAL (PRIMARY) HYPERTENSION Status: Acute Qualifiers: Hypertension type: essential hypertension Qualified Code(s): I10 - Essential (primary) hypertension - Plan Plan: Atypical Chest Pain - Troponin trend: 0.037 -> 0.025 -> 0.034 -> 0.047 -> 0.03 - No tele events since admission - Will discuss with Dr. Gonzales in regards to if he feels stress testing necessary considering her troponins and recent cath CAD - Continue home regimen - Cath with PAD occlusion and no stent placement 09/16 FRANK - Improving with IVF - Continue while NPO A-fib - Currently V-paced - continue home meds - Continuous tele monitoring DM - accuchecks - Continue home regimen IVF: LR @ 120 VTE: Eliquis Code: Full Dispo: Admit to Tele Obs for ACS r/o. ELOS <48hr. Addendum - Attending - Attending Attestation Date/Time: 12/22/19 1033 I personally evaluated the patient and discussed the management with Dr. Reed. I agree with the History, Examination, Assessment and Plan documented above with any addition or exceptions noted below. Patient here for chest pain in setting of recent normal heart cath. She did have bump in enzymes that are now downtrending. No evidence for ACS. Cardiology consulted and will await recs. Possible d/c later today if no further workup/ med changes planned.
[2019-12-22 06:10] LABS: Troponin I 0.047 ng/mL (< 0.028)
[2019-12-22 08:14] LABS: CKMB 1.1 ng/mL (0-6.6)
[2019-12-22] MEDS ORDERED: Folic Acid 1 MG TAB PO SCH (09:00)
[2019-12-22] MEDS ORDERED: Clopidogrel Bisulfate 75 MG TAB PO SCH (09:00)
[2019-12-22] MEDS ORDERED: ZINC PO SCH (09:00)
[2019-12-22] MEDS ORDERED: MAG PO SCH (09:00)
[2019-12-22] MEDS ORDERED: Alogliptin 25 MG TAB PO SCH (09:00)
[2019-12-22] MEDS ORDERED: B12 PO SCH (09:00)
[2019-12-22] MEDS ORDERED: [UNRECOGNIZED DRUG - OTHER] PO SCH (09:00)
[2019-12-22] MEDS ORDERED: IODIN PO SCH (09:00)
[2019-12-22] MEDS: Gabapentin 300 MG CAP PO SCH ×2 (09:46→17:20)
[2019-12-22] MEDS: Topiramate 25 MG TAB PO SCH (09:46)
[2019-12-22] MEDS: Potassium Chloride 20 MEQ TAB PO SCH ×2 (09:47→17:21)
[2019-12-22] MEDS: Apixaban 5 MG TAB PO SCH (09:47)
[2019-12-22] MEDS: Furosemide 40 MG TAB PO SCH (09:47)
[2019-12-22] MEDS: Ferrous Sulfate 325 MG TAB PO SCH (09:47)
[2019-12-22] MEDS: glipiZIDE 5 MG TAB PO SCH ×2 (10:21→17:25)
[2019-12-22] MEDS: Digoxin 0.125 MG TAB PO SCH ×2 (10:21→17:20)
[2019-12-22 15:56] VITALS: BP 136/62; TEMP 98.4
--- NOTE | 2019-12-22 18:45 | CON ---
DATE OF CONSULTATION: 12/22/2019 REASON FOR CONSULTATION: Palpitations and chest pressure. HISTORY OF PRESENT ILLNESS: Ms. Vickers is a very pleasant 74-year-old woman, whom I have seen and evaluated in the past. She has a previous history of CAD, status post WI in August 2019. She had occluded vessel noted to the PDA. This was likely embolization from atrial fibrillation. She was placed on anticoagulation therapy. She recently presented with palpitations. She states they were noted while on telemetry monitoring. On telemetry, there was no evidence of significant dysrhythmias present. Her troponin was mildly elevated, but so too was her creatinine. PAST MEDICAL HISTORY: Previous WI; atrial fibrillation; breast cancer; diabetes mellitus; hypertension; chronic kidney disease; hyperthyroidism; sick sinus syndrome, status post pacemaker; and carpal tunnel release. SOCIAL HISTORY: No current tobacco or alcohol use. REVIEW OF SYSTEMS: Ten-point review of systems was reviewed as above. Otherwise, negative PHYSICAL EXAMINATION: GENERAL: The patient is a pleasant woman, who is in no acute distress. The patient appears their stated age. VITAL SIGNS: Blood pressure 136/62, pulse 91, temperature 98.4. NEUROLOGIC: The patient is alert and oriented x3 with no focal neurologic deficits. HEENT: Sclerae without icterus. Mouth has moist mucous membranes with normal pallor. NECK: No JVD. Carotid upstroke brisk. No bruits bilaterally. LUNGS: Clear to auscultation with unlabored respirations. BACK: No scoliosis or kyphosis. CARDIAC: Regular rate and rhythm with normal S1 and S2. No S3 or S4 noted. No significant rubs, murmurs, thrills, or gallops noted throughout the precordium. PMI is not displaced. There is no parasternal heave. ABDOMEN: Soft, nontender, nondistended. No peritoneal signs present. No hepatosplenomegaly. No abnormal striae. EXTREMITIES: 2+ femoral and 2+ dorsalis pedis pulses. No cyanosis, clubbing, or edema. SKIN: No gross abnormalities. PERTINENT LABORATORY DATA: Hemoglobin 14.1. Creatinine 1.4, GFR 33. Peak troponin 0.04. IMPRESSION: 1. Palpitations. 2. Chest tightness. 3. Elevated troponin. RECOMMENDATIONS: Elevated troponin is likely secondary to low GFR. The patient has a previous history of occluded PDA. Her symptoms are not felt to be anginal. As far as palpitations are concerned, there was no evidence of PVCs, PACs, or dysrhythmias on the monitor. Reassurance provided. Plan is to follow up Ms. Vickers as an outpatient. Job ID: [id number]
--- NOTE | 2019-12-23 02:50 | DIS ---
DATE OF ADMISSION: 12/21/2019 DATE OF DISCHARGE: 12/22/2019 ADMITTING ATTENDING: Angel Martinez MD DISCHARGE ATTENDING: Kwaku Monsalve MD RESIDENT: Taqueria Reed DO CONSULTS: Cardiology, Nicolas Gonzales MD PROCEDURES PERFORMED: None. IMAGING: Chest x-ray. Findings; no acute pulmonary findings. PRIMARY DIAGNOSES: Atypical chest pain in the setting of known coronary artery disease, atrial fibrillation with ventricular pacemaker. SECONDARY DIAGNOSES: Indeterminate troponins, renal insufficiency, hypertension, diabetes. DISCHARGE MEDICATIONS: 1. Furosemide 40 mg daily. 2. Gabapentin 600 mg t.i.d. 3. K-Dur 20 mEq b.i.d. 4. Atorvastatin 40 mg at bedtime. 5. Cozaar 25 mg daily. 6. Zoloft 50 mg daily. 7. Glipizide 5 mg b.i.d. 8. Digoxin 0.125 mg daily. 9. Januvia 50 mg daily. 10. Diltiazem 180 mg b.i.d. 11. Metoprolol succinate 100 mg b.i.d. 12. Plavix 75 mg daily. 13. Ferrous sulfate 325 mg b.i.d. 14. Folvite 1 mg daily. 15. Ventolin 2 puffs q.6 hours p.r.n. 16. Topiramate 25 mg b.i.d. 17. Pantoprazole 40 mg q.a.m. 18. Eliquis 5 mg b.i.d. 19. caplet daily. 20. Methimazole 5 mg at bedtime. HISTORY OF PRESENT ILLNESS AND HOSPITAL COURSE: A 74-year-old female with past medical history of CAD and atrial fibrillation, presented to the ED with complaint of palpitations that have been occurring intermittently for the previous two days. The patient stated that her current symptoms feel similar to those that she experienced back in August of 2019, when she was diagnosed with an NSTEMI. The patient had a catheterization at that time that showed a PDA embolism and no stents were placed. The patient follows Dr. Gonzales. ED workup showed initial troponin of 0.037 and indeterminate range with a BNP of 226. Chest x-ray and D-dimer were both negative. She received 500 mL normal saline bolus and was admitted to the hospital for serial troponins and cardiac monitoring. Overnight, the patient remained V paced with no acute cardiac or telemetry events. Her troponins were trended and fluctuated between normal and low indeterminate range, eventually remaining downtrended. The following morning, the patient noted continued intermittent substernal fluttering in her chest, but denied any associated shortness of breath, nausea, vomiting, or lightheadedness. The patient was seen by Dr. Gonzales, who evaluated the patient and her telemetry strip and felt that no acute cardiac event had occurred and was comfortable with the patient being discharged on her current regimen with regular followup. This was reiterated to the patient and she felt comfortable returning home. Return precautions were discussed prior to discharge to which she expressed understanding. DISCHARGE INSTRUCTIONS: 1. Location: Home. 2. Diet: Heart healthy, carb conscious. 3. Activity: As tolerated by cardiopulmonary limits. 4. Followup: PCP, Dr. Sangeeta Smith, within 7 days; Dr. Gonzales, thiokol operator as directed. Job ID: [id number]
== END 2019-12-22 18:35 | disposition home or self-care (01) ==
LOC: ERS 11:50 → 2SW 14:00
PROVIDERS: ADMIT Family Medicine; ATTEND Family Medicine
DX: R07.89 Other chest pain (principal); I25.10 Atherosclerotic heart disease of native coronary artery without angina pectoris; I48.91 Unspecified atrial fibrillation; N17.9 Acute kidney failure, unspecified; R79.89 Other specified abnormal findings of blood chemistry; I12.9 Hypertensive chronic kidney disease with stage 1 through stage 4 chronic kidney disease, or unspecified chronic kidney disease; E11.22 Type 2 diabetes mellitus with diabetic chronic kidney disease; N18.9 Chronic kidney disease, unspecified; I49.5 Sick sinus syndrome; E78.5 Hyperlipidemia, unspecified; F41.9 Anxiety disorder, unspecified; F32.9 Major depressive disorder, single episode, unspecified; I25.2 Old myocardial infarction; Z85.3 Personal history of malignant neoplasm of breast; Z88.1 Allergy status to other antibiotic agents; Z95.0 Presence of cardiac pacemaker
CPT/HCPCS: 36415; 36416; 71045; 80048; 80053; 82550; 82553; 83690; 83880; 84443; 84484; 85025; 85379; 93005; 96360; 96361; G0378

== ENCOUNTER 2020-10-01 10:29 | Outpatient (CLI) | payer MEDICARE ==
--- NOTE | 2020-10-01 11:28 | MMO ---
Bilateral MAMMO Bilat Screen [facility]. CLINICAL HISTORY: Patient is 75 years old and is seen for screening. The patient has no family history of breast cancer. The patient has a history of malignant (generic) in the left breast in 2001. The patient has a history of left Lumpectomy in September, - malignant. VIEWS: The views performed were: bilateral craniocaudal with tomosynthesis and bilateral mediolateral oblique with tomosynthesis. FILMS COMPARED: The present examination has been compared to prior imaging studies performed at [facility] on 05/13/2010, 09/16/2017, 09/22/2018 and 09/25/2019. This study has been interpreted with the assistance of computer-aided detection. MAMMOGRAM FINDINGS: There are scattered fibroglandular densities. Benign calcifications are noted bilaterally. There are stable left sided post-operative changes. There are no suspicious masses, suspicious calcifications, or new areas of architectural distortion. IMPRESSION: THERE IS NO MAMMOGRAPHIC EVIDENCE OF MALIGNANCY. A ROUTINE FOLLOW-UP MAMMOGRAM IN 1 YEAR IS RECOMMENDED. THE RESULTS OF THIS EXAM WERE SENT TO THE PATIENT. ACR BI-RADS Category 2 - Benign finding MAMMOGRAPHY NOTE: 1. A negative mammogram report should not delay a biopsy if a dominant of clinically suspicious mass is present. 2. Approximately 10% to 15% of breast cancers are not detected by mammography. 3. Adenosis and dense breasts may obscure an underlying neoplasm. Reported by: KIMMY MARTÍNEZ MD Electonically Signed: [id number]
== END 2020-10-01 10:30 | disposition home or self-care (01) ==
LOC: BICMAMMO 10:29
PROVIDERS: ATTEND Family Medicine
DX: Z12.31 Encounter for screening mammogram for malignant neoplasm of breast (principal); Z85.3 Personal history of malignant neoplasm of breast; Z98.890 Other specified postprocedural states
CPT/HCPCS: 77063; 77067

== ENCOUNTER 2022-04-02 13:45 | Outpatient (CLI) | payer OTHER ==
[2022-04-02 15:02] LABS: #Basophils 0.1 10x3/uL (0.0-0.2); #Eosinphils 0.3 10x3/uL (0.0-0.5); #Monocytes 0.6 10x3/uL (0.0-1.1); #Neutrophils 5.4 10x3/uL (1.5-8.4); %Basophils 0.6 % (0.0-2.0); %Eosinophils 3.6 % (0.0-6.0); %Lymphocytes 22.8 % (18.0-47.0); %Monocytes 6.9 % (0.0-10.0); %Neutrophils 65.6 % (40.0-75.0); Hemoglobin 12.2 g/dL (12.0-15.5); Mean Corpuscular HGB CONC 32.8 g/dL (32.0-36.0); Mean Corpuscular Hemoglobin 30.2 pg (27.0-33.0); Mean Corpuscular Volume 92.1 fl (81.6-98.3); Mean Platelet Volume 10.4 fl (7.4-10.4); Platelet Count 182 10x3/uL (150-450); RBC Distribution Width 15.1 % (11.5-14.5); Red Blood Cell (RBC) Count 4.04 10x6/uL (3.90-5.03); White Blood Cell (WBC) Count 8.2 10x3/uL (3.5-10.5)
[2022-04-02 15:44] LABS: Chloride 106 mmol/L (98-107); Potassium 3.8 mmol/L (3.5-5.1); Sodium 142 mmol/L (136-145)
[2022-04-02 15:47] LABS: Anion Gap 15 mmol/L (10-20); BUN (Urea Nitrogen) 21 mg/dL (9.8-20.1); Calc. Creatinine Clearance 0 mL/min (70-130); Calcium 8.7 mg/dL (7.8-10.44); Carbon Dioxide 25 mmol/L (23-31); Glucose 130 mg/dL (83-110)
[2022-04-03 11:56] LABS: SARS-CoV-2 PCR by NAA Not Detected (NotDetected)
== END 2022-04-02 13:46 | disposition home or self-care (01) ==
LOC: LABBT 13:45
PROVIDERS: ATTEND Specialist
DX: Z01.818 Encounter for other preprocedural examination (principal); N63.20 Unspecified lump in the left breast, unspecified quadrant; Z20.822 Contact with and (suspected) exposure to COVID-19
CPT/HCPCS: 80048; 85025; 93005; 93010; U0003; U0005

== ENCOUNTER 2022-04-07 10:28 | Day surgery (SDC) | payer MEDICARE ==
[2022-04-07] MEDS ORDERED: ceFAZolin (BATCH) 2 GM/100 ML BAG ONE (11:13)
[2022-04-07] MEDS ORDERED: Ketorolac Tromethamine 30 MG/ML VIAL ONE (11:13)
[2022-04-07] MEDS ORDERED: Acetaminophen 500 MG TAB ONE (11:13)
[2022-04-07] MEDS ORDERED: Bupivacaine 0.25% 10 ML VIAL ONE (11:48)
[2022-04-07] MEDS ORDERED: Lidocaine 1% w/Epinephrine 1:100K 20 ML VIAL ONE (11:48)
[2022-04-07] MEDS ORDERED: Midazolam HCl 2 mg/2 ml Vial ONE (11:49)
[2022-04-07] MEDS ORDERED: fentaNYL Citrate/PF 100 MCG/2 ML SYRINGE ONE ×2 (11:50→12:47)
[2022-04-07] MEDS ORDERED: Dexamethasone 20 MG/5 ML VIAL ONE (12:11)
[2022-04-07] MEDS ORDERED: Lidocaine 1% PF 5 ML VIAL ONE (12:11)
[2022-04-07] MEDS ORDERED: Ondansetron PF 4 MG/2 ML Vial ONE (12:11)
[2022-04-07] MEDS ORDERED: PROPOFOL 200 MG/20 ML VIAL ONE (12:11)
[2022-04-07] MEDS ORDERED: Bacitracin Zinc Ointment 30 gm TUBE ONE (13:27)
== END 2022-04-07 14:50 | disposition home or self-care (01) ==
LOC: SDC 10:28
PROVIDERS: ATTEND Specialist
PROC: 0HBU0ZZ Excision of Left Breast, Open Approach (ICD-10-PCS; principal; 2022-04-07)
PROC: 0HX5XZZ Transfer Chest Skin, External Approach (ICD-10-PCS; 2022-04-07)
DX: N61.1 Abscess of the breast and nipple (principal); N64.1 Fat necrosis of breast; E11.42 Type 2 diabetes mellitus with diabetic polyneuropathy; M19.90 Unspecified osteoarthritis, unspecified site; E78.00 Pure hypercholesterolemia, unspecified; I12.9 Hypertensive chronic kidney disease with stage 1 through stage 4 chronic kidney disease, or unspecified chronic kidney disease; E11.22 Type 2 diabetes mellitus with diabetic chronic kidney disease; N18.30 Chronic kidney disease, stage 3 unspecified; I48.91 Unspecified atrial fibrillation; G25.0 Essential tremor; Z85.3 Personal history of malignant neoplasm of breast; Z79.01 Long term (current) use of anticoagulants; Z79.02 Long term (current) use of antithrombotics/antiplatelets; Z79.84 Long term (current) use of oral hypoglycemic drugs; Z79.899 Other long term (current) drug therapy; Z88.1 Allergy status to other antibiotic agents; Z88.8 Allergy status to other drugs, medicaments and biological substances; Z95.0 Presence of cardiac pacemaker; Y84.2 Radiological procedure and radiotherapy as the cause of abnormal reaction of the patient, or of later complication, without mention of misadventure at the time of the procedure
CPT/HCPCS: 14000; 19120; C1713; 88307; J0690; J1100; J1885; J2250; J2405; J2704; S0020

== ENCOUNTER 2022-09-18 12:29 | Inpatient (IN) | payer MEDICARE ==
[2022-09-18] MEDS ORDERED: Cefepime 2 GM VIAL ONE (13:02)
[2022-09-18] MEDS ORDERED: Vancomycin 1 GM/200 ML BAG ONE (13:02)
[2022-09-18 13:30] LABS: #Eosinphils 0.3 thou/uL (0.0-0.7); #Lymphocytes 1.7 thou/uL (1.20-3.40); #Monocytes 0.8 thou/uL (0.11-0.59); #Neutrophils 7.3 thou/uL (1.40-6.50); %Basophils 0.4 % (0.0-1.0); %Eosinophils 2.5 % (0.0-10.0); %Lymphocytes 16.7 % (21.0-51.0); %Monocytes 8.1 % (0.0-10.0); %Neutrophils 72.3 % (42.0-75.0); Hemoglobin 11.1 g/dL (12.0-16.0); Mean Corpuscular HGB CONC 33.3 g/dL (32.0-36.0); Mean Corpuscular Hemoglobin 32.3 pg (27.0-31.0); Mean Corpuscular Volume 97.1 fL (78.0-98.0); Platelet Count 160 thou/uL (130-400); RBC Distribution Width 14.2 % (11.5-14.5); Red Blood Cell (RBC) Count 3.44 mill/uL (4.20-5.40); White Blood Cell (WBC) Count 10.1 thou/uL (4.8-10.8)
[2022-09-18 13:42] LABS: ALT (SGPT) 13 U/L (8-55); AST (SGOT) 14 U/L (5-34); Albumin 3.3 g/dL (3.4-4.8); Alkaline Phosphatase 86 U/L (40-110); Anion Gap 14 mmol/L (10-20); BUN (Urea Nitrogen) 27 mg/dL (9.8-20.1); Bilirubin, Total 0.5 mg/dL (0.2-1.2); CK (CPK) 63 U/L (29-168); Calc. Creatinine Clearance 0 mL/min (70-130); Calcium 8.7 mg/dL (7.8-10.44); Carbon Dioxide 21 mmol/L (23-31); Chloride 109 mmol/L (98-107); Estimated GFR 30; Globulin 3.1 g/dL (2.4-3.5); Glucose 110 mg/dL (83-110); Potassium 3.7 mmol/L (3.5-5.1); Protein, Total 6.4 g/dL (5.8-8.1); Sodium 140 mmol/L (136-145)
[2022-09-18 13:46] LABS: Bilirubin Negative (Negative); Blood, Urine Negative (Negative); Clarity Clear (Clear); Glucose, Urine (Dipstick) Normal (Negative); Ketone, Urine Negative (Negative); Leukocyte Negative Leu/uL (Negative); Nitrite Negative (Negative); Protein, Urine (Dipstick) Negative (Neg-Trace); Specific Gravity, Urine 1.019 (1.002-1.036); Urobilinogen Normal mg/dL (Less than 2); pH, Urine 5.5 (5.0-9.0)
[2022-09-18 14:15] LABS: SARS-CoV-2 NAA Rapid Test Not Detected (NotDetected)
[2022-09-18] MEDS ORDERED: Albuterol Sulfate 2.5 mg/3 ml Neb NEB PRN (18:33)
[2022-09-18] MEDS: Lactated Ringer's 1,000 ML IV SCH (20:51)
[2022-09-18] MEDS: Furosemide 40 MG TAB PO SCH (20:52)
[2022-09-18] MEDS: Atorvastatin Calcium 40 MG TAB PO SCH (20:52)
[2022-09-18] MEDS: Ascorbic Acid 500 mg Chewable Tablet PO SCH (20:52)
[2022-09-18] MEDS: Calcium Carbonate 500 MG TAB PO SCH (20:52)
[2022-09-18] MEDS: Cholecalciferol 1,000 UNITS (25 MCG) TAB PO SCH (20:52)
[2022-09-18] MEDS ORDERED: Vancomycin 1 GM in Premix Bag 1 BAG IVPB SCH (21:00)
[2022-09-18] MEDS: Topiramate 25 MG TAB PO SCH (22:51)
[2022-09-18] MEDS: Vitamin E 400 UNITS CAP PO SCH (22:51)
[2022-09-19] MEDS ORDERED: Vancomycin HCl 750 MG in Sodium Chloride 0.9% 250 ML 250 ML IVPB SCH (00:15)
[2022-09-19] MEDS ORDERED: Apixaban 5 MG TAB PO SCH (00:30)
[2022-09-19] MEDS: Cefepime 1 GM in Sodium Chloride 0.9% 100 ML IVPB SCH ×2 (01:33→13:30)
[2022-09-19 05:52] LABS: #Eosinphils 0.3 thou/uL (0.0-0.7); #Lymphocytes 1.2 thou/uL (1.20-3.40); #Monocytes 0.6 thou/uL (0.11-0.59); #Neutrophils 5.5 thou/uL (1.40-6.50); %Basophils 0.5 % (0.0-1.0); %Eosinophils 4.3 % (0.0-10.0); %Lymphocytes 15.3 % (21.0-51.0); %Monocytes 7.9 % (0.0-10.0); %Neutrophils 72.1 % (42.0-75.0); Hemoglobin 9.7 g/dL (12.0-16.0); Mean Corpuscular HGB CONC 33.7 g/dL (32.0-36.0); Mean Corpuscular Volume 97.9 fL (78.0-98.0); Mean Platelet Volume 7.7 fL (7.4-10.4); Platelet Count 130 thou/uL (130-400); RBC Distribution Width 14.1 % (11.5-14.5); Red Blood Cell (RBC) Count 2.93 mill/uL (4.20-5.40); White Blood Cell (WBC) Count 7.7 thou/uL (4.8-10.8)
[2022-09-19 06:11] LABS: Anion Gap 13 mmol/L (10-20); BUN (Urea Nitrogen) 21 mg/dL (9.8-20.1); Calc. Creatinine Clearance 46 mL/min (70-130); Calcium 8.1 mg/dL (7.8-10.44); Carbon Dioxide 17 mmol/L (23-31); Chloride 115 mmol/L (98-107); Estimated GFR 41; Glucose 77 mg/dL (83-110); Sodium 141 mmol/L (136-145)
[2022-09-19] MEDS: Lactated Ringer's 1,000 ML IV SCH (06:33)
[2022-09-19] MEDS: Alogliptin 6.25 MG TAB PO SCH (10:23)
[2022-09-19] MEDS: Digoxin 0.125 MG TAB PO SCH (10:24)
[2022-09-19] MEDS: Gabapentin 300 MG CAP PO SCH ×3 (10:24→20:51)
[2022-09-19] MEDS: Folic Acid 1 MG TAB PO SCH (10:24)
[2022-09-19] MEDS: Clopidogrel Bisulfate 75 MG TAB PO SCH (10:24)
[2022-09-19] MEDS: Furosemide 40 MG TAB PO SCH ×2 (10:24→20:51)
[2022-09-19] MEDS: Multivit, Therapeutic 1 TAB PO SCH (10:25)
[2022-09-19] MEDS: Losartan 25 MG TAB PO SCH (10:26)
[2022-09-19] MEDS: Topiramate 25 MG TAB PO SCH ×2 (12:08→20:52)
[2022-09-19] MEDS: Vancomycin 1 GM in Premix Bag 1 BAG IVPB SCH (14:36)
[2022-09-19] MEDS: Ascorbic Acid 500 mg Chewable Tablet PO SCH (20:50)
[2022-09-19] MEDS: Atorvastatin Calcium 40 MG TAB PO SCH (20:51)
[2022-09-19] MEDS: Cholecalciferol 1,000 UNITS (25 MCG) TAB PO SCH (20:51)
[2022-09-19] MEDS: Calcium Carbonate 500 MG TAB PO SCH (20:51)
[2022-09-19] MEDS: Vitamin E 400 UNITS CAP PO SCH (20:53)
[2022-09-20] MEDS: Cefepime 1 GM in Sodium Chloride 0.9% 100 ML IVPB SCH ×2 (00:34→13:19)
[2022-09-20 05:35] LABS: #Eosinphils 0.3 thou/uL (0.0-0.7); #Lymphocytes 1.2 thou/uL (1.20-3.40); #Monocytes 0.6 thou/uL (0.11-0.59); #Neutrophils 7.4 thou/uL (1.40-6.50); %Basophils 0.3 % (0.0-1.0); %Eosinophils 3.1 % (0.0-10.0); %Lymphocytes 12.3 % (21.0-51.0); %Monocytes 6.4 % (0.0-10.0); Hemoglobin 10.5 g/dL (12.0-16.0); Mean Corpuscular HGB CONC 33.7 g/dL (32.0-36.0); Mean Corpuscular Hemoglobin 32.5 pg (27.0-31.0); Mean Corpuscular Volume 96.5 fL (78.0-98.0); Mean Platelet Volume 7.8 fL (7.4-10.4); Platelet Count 143 thou/uL (130-400); RBC Distribution Width 14.2 % (11.5-14.5); Red Blood Cell (RBC) Count 3.25 mill/uL (4.20-5.40); White Blood Cell (WBC) Count 9.5 thou/uL (4.8-10.8)
[2022-09-20 06:24] LABS: Anion Gap 13 mmol/L (10-20); BUN (Urea Nitrogen) 22 mg/dL (9.8-20.1); Calc. Creatinine Clearance 45 mL/min (70-130); Calcium 8.8 mg/dL (7.8-10.44); Carbon Dioxide 19 mmol/L (23-31); Chloride 112 mmol/L (98-107); Estimated GFR 40; Glucose 149 mg/dL (83-110); Potassium 3.8 mmol/L (3.5-5.1); Sodium 140 mmol/L (136-145)
[2022-09-20] MEDS: Clopidogrel Bisulfate 75 MG TAB PO SCH (08:45)
[2022-09-20] MEDS: Alogliptin 6.25 MG TAB PO SCH (08:45)
[2022-09-20] MEDS: Digoxin 0.125 MG TAB PO SCH (08:45)
[2022-09-20] MEDS: Gabapentin 300 MG CAP PO SCH ×3 (08:47→20:44)
[2022-09-20] MEDS: Apixaban 5 MG TAB PO SCH ×2 (08:47→20:44)
[2022-09-20] MEDS: Folic Acid 1 MG TAB PO SCH (08:47)
[2022-09-20] MEDS: Furosemide 40 MG TAB PO SCH ×2 (08:47→20:45)
[2022-09-20] MEDS: Topiramate 25 MG TAB PO SCH ×2 (08:48→20:44)
[2022-09-20] MEDS: Multivit, Therapeutic 1 TAB PO SCH (08:48)
[2022-09-20] MEDS: Losartan 25 MG TAB PO SCH (08:48)
[2022-09-20] MEDS ORDERED: Ibuprofen 200 MG TAB PO PRN (11:36)
[2022-09-20] MEDS: Vancomycin 1 GM in Premix Bag 1 BAG IVPB SCH (14:44)
[2022-09-20] MEDS: Vitamin E 400 UNITS CAP PO SCH (20:44)
[2022-09-20] MEDS: Cholecalciferol 1,000 UNITS (25 MCG) TAB PO SCH (20:44)
[2022-09-20] MEDS: Calcium Carbonate 500 MG TAB PO SCH (20:44)
[2022-09-20] MEDS: Ascorbic Acid 500 mg Chewable Tablet PO SCH (20:45)
[2022-09-20] MEDS: Atorvastatin Calcium 40 MG TAB PO SCH (20:45)
[2022-09-21] MEDS: Cefepime 1 GM in Sodium Chloride 0.9% 100 ML IVPB SCH ×2 (01:35→14:04)
[2022-09-21 06:00] LABS: #Basophils 0.1 thou/uL (0.0-0.2); #Eosinphils 0.2 thou/uL (0.0-0.7); #Monocytes 0.6 thou/uL (0.11-0.59); #Neutrophils 10.1 thou/uL (1.40-6.50); %Basophils 0.4 % (0.0-1.0); %Monocytes 5.2 % (0.0-10.0); %Neutrophils 84.4 % (42.0-75.0); Hemoglobin 10.4 g/dL (12.0-16.0); Mean Corpuscular HGB CONC 33.1 g/dL (32.0-36.0); Mean Corpuscular Hemoglobin 31.9 pg (27.0-31.0); Mean Corpuscular Volume 96.4 fL (78.0-98.0); Mean Platelet Volume 8.2 fL (7.4-10.4); Platelet Count 151 thou/uL (130-400); Red Blood Cell (RBC) Count 3.27 mill/uL (4.20-5.40); White Blood Cell (WBC) Count 11.9 thou/uL (4.8-10.8)
[2022-09-21 06:16] LABS: Anion Gap 14 mmol/L (10-20); BUN (Urea Nitrogen) 25 mg/dL (9.8-20.1); Calc. Creatinine Clearance 47 mL/min (70-130); Calcium 8.8 mg/dL (7.8-10.44); Carbon Dioxide 19 mmol/L (23-31); Chloride 113 mmol/L (98-107); Estimated GFR 42; Glucose 160 mg/dL (83-110); Potassium 3.8 mmol/L (3.5-5.1); Sodium 142 mmol/L (136-145)
[2022-09-21] MEDS ORDERED: Alogliptin 6.25 MG TAB PO SCH (09:30)
[2022-09-21] MEDS: Gabapentin 300 MG CAP PO SCH ×2 (09:32→15:09)
[2022-09-21] MEDS: Multivit, Therapeutic 1 TAB PO SCH (09:33)
[2022-09-21] MEDS: Clopidogrel Bisulfate 75 MG TAB PO SCH (09:33)
[2022-09-21] MEDS: Furosemide 40 MG TAB PO SCH (09:33)
[2022-09-21] MEDS: Topiramate 25 MG TAB PO SCH (09:34)
[2022-09-21] MEDS: Losartan 25 MG TAB PO SCH (09:35)
[2022-09-21] MEDS: Digoxin 0.125 MG TAB PO SCH (09:35)
[2022-09-21] MEDS: Folic Acid 1 MG TAB PO SCH (09:35)
[2022-09-21] MEDS: Apixaban 5 MG TAB PO SCH (09:35)
[2022-09-21] MEDS: Alogliptin 6.25 MG TAB PO SCH (10:32)
[2022-09-21] MEDS ORDERED: Ibuprofen 100 MG/5 ML UDCUP PO PRN (10:35)
[2022-09-21 11:36] VITALS: BP 121/68; TEMP 99.8
[2022-09-21 11:38] VITALS: BMI 32.1
[2022-09-21] MEDS: Vancomycin 1 GM in Premix Bag 1 BAG IVPB SCH (14:34)
[2022-09-21] MEDS ORDERED: Amoxicillin/Potassium Clav 500 MG TAB PO SCH (21:00)
[2022-09-21] MEDS ORDERED: Doxycycline 100 MG CAP PO SCH (21:00)
[2022-09-22] MEDS ORDERED: Alogliptin 6.25 MG TAB PO SCH (09:00)
== END 2022-09-21 17:50 | disposition home or self-care (01) | DRG 603 ==
LOC: ERS 12:29 → MSONC 14:26
PROVIDERS: ADMIT Emergency Medicine; ATTEND Emergency Medicine
DX: L03.115 Cellulitis of right lower limb (principal); N17.9 Acute kidney failure, unspecified; E11.40 Type 2 diabetes mellitus with diabetic neuropathy, unspecified; I48.91 Unspecified atrial fibrillation; F41.9 Anxiety disorder, unspecified; F32.A Depression, unspecified; N18.30 Chronic kidney disease, stage 3 unspecified; D50.9 Iron deficiency anemia, unspecified; I12.9 Hypertensive chronic kidney disease with stage 1 through stage 4 chronic kidney disease, or unspecified chronic kidney disease; F32.9 Major depressive disorder, single episode, unspecified; K21.9 Gastro-esophageal reflux disease without esophagitis; L98.499 Non-pressure chronic ulcer of skin of other sites with unspecified severity; Z20.822 Contact with and (suspected) exposure to COVID-19; E11.621 Type 2 diabetes mellitus with foot ulcer; D63.1 Anemia in chronic kidney disease; L97.519 Non-pressure chronic ulcer of other part of right foot with unspecified severity; I25.2 Old myocardial infarction; Z98.890 Other specified postprocedural states; Z79.51 Long term (current) use of inhaled steroids; Z79.899 Other long term (current) drug therapy
CPT/HCPCS: 36415; 80048; 80053; 80202; 81003; 82550; 83605; 84484; 85025; 87040; 87086; 93005; 96365; 96366; 96367; 97139; J0692; J3370; J3490; J7050; J7120; U0002

== ENCOUNTER 2022-12-08 10:21 | Outpatient (CLI) | payer MEDICARE | END 2022-12-08 10:22 | disposition home or self-care (01) | LOC: BICRAD 10:21 | PROVIDERS: ATTEND Nurse Practitioner Family | DX: M25.561 Pain in right knee (principal) ==

== ENCOUNTER 2023-10-19 09:12 | Outpatient (CLI) | payer MEDICARE | END 2023-10-19 09:13 | disposition home or self-care (01) | LOC: RAD 09:12 | DX: J10.1 Influenza due to other identified influenza virus with other respiratory manifestations (principal) | CPT/HCPCS: 71046 ==